=== PATIENT | male | born 1935 | race Caucasian/White ===

== ENCOUNTER 2021-12-04 08:15 | Emergency (ER) | payer MEDICARE, SELFPAY ==
[2021-12-04] VITALS (13 sets, daily range): BP systolic 116–166; BP diastolic 71–93; PULSE 61–78; RESP 15–21; TEMP 36.6–36.9; O2SAT 90–97; BMI 33.5
--- NOTE | 2021-12-04 08:16 | CT_ITS ---
STUDY: CT HEAD STROKE PROTOCOL W/O CONTRAST INJECTION REASON FOR EXAM: Male, 86 years old. Neuro deficit, acute, stroke suspected RADIATION DOSAGE (If Supplied By Facility): CTDIvol = ( 44.99 ) mGy, DLP = ( A 12.98 ) mGycm TECHNIQUE: Transaxial CT imaging of the brain was performed without administration of intravenous contrast material. Individualized dose optimization techniques were used for this CT. COMPARISON: No relevant priors. FINDINGS: Normal soft tissue structures. Normal calvarium. There is mild cerebral atrophy with widening of the extra-axial spaces and ventricular dilatation. There are areas of decreased attenuation within the white matter tracts of the supratentorial brain, consistent with microvascular disease changes. There are small punctate calcifications of the basal ganglia which are seen in the aging brain as a normal variant. Normal brainstem. Tiny lacunae in the left thalamus. There is mild cerebellar atrophy. There is evidence of a 2.9 cm x 2.1 cm intracerebral hematoma in the deep aspect of the left parietal lobe. Minimal surrounding mass effect. Atherosclerotic calcification of the cavernous portions of the internal carotid arteries bilaterally. Normal visualized paranasal sinuses. CT/STROKE Brain/Head without Cont IMPRESSION: 2.9 cm x 2.1 cm intracerebral hematoma in the deep left parietal lobe with minimal surrounding mass effect. Old lacuna in the left thalamus. N.B. : The above Results were Read Back by Arnold Chi MD to Adan Pennington and understanding confirmed on 12/04/2021 08:31:17 (ET). Electronically Signed: Arnold Chi MD at 8:32 EST ,
--- NOTE | 2021-12-04 08:16 | RAD_ITS ---
STUDY: X-RAY CHEST REASON FOR EXAM: Male, 86 years old. Neuro deficit, acute, stroke suspected TECHNIQUE: Single AP portable view of the chest. COMPARISON: None. FINDINGS: EKG electrodes are seen. The lungs are clear and expanded. There is no demonstrated pleural abnormality. Normal size heart. Normal mediastinum and finn. Normal visualized pulmonary arteries. There is atherosclerotic tortuosity of the aortic arch and descending thoracic aorta. There are diffuse degenerative changes of the visualized thoracic spine. Normal visualized ribs, clavicles, and shoulders. There is no demonstrated abnormality of the visualized soft tissue structures of the upper abdomen. RAD/Chest 1 View IMPRESSION: No acute abnormality is seen. Electronically Signed: Arnold Chi MD at 9:03 EST ,
--- NOTE | 2021-12-04 08:16 | EKG12_ITS ---
Test Reason : STROKE Blood Pressure : / mmHG Vent. Rate : 071 BPM Atrial Rate : 071 BPM P-R Int : 146 ms QRS Dur : 090 ms QT Int : 394 ms P-R-T Axes : 053 027 028 degrees QTc Int : 428 ms Normal sinus rhythm Normal ECG Confirmed by SYDNI MTZ MD ([id number]), staff editor DYLAN NAGY ([id number]) on 12/07/2021 12:55:51 PM Referred By: Confirmed By:SYDNI MTZ MD
[2021-12-04 08:34] LABS: Absolute Lymphocyte Count 2.43 X10^3/uL (0.83-4.51); Absolute Neutrophil Count 3.5 X10^3/uL (2.0-7.7); Basophil# 0.04 X10^3/uL; Basophil% 0.6 % (0-1); Eosinophil# 0.22 X10^3/uL; Eosinophils% 3.1 % (0-5); Hematocrit 42.1 % (40-54); Hemoglobin 15.2 g/dL (13.0-16.5); Lymphocyte # 2.43 X10^3/ul (0.83-4.51); Lymphocyte % 34.8 % (19-41); Mean Corp Hgb Conc 36.1 g/dL (32-36); Mean Platelet Vol. 8.6 fl (6.2-12.0); Monocyte# 0.76 X10^3/uL; Monocyte% 10.9 % (0-10); NRBC Flagged by Analyzer 0 % (0-5); Neutrophil # 3.52 X10^3/uL (2.7-7.7); Neutrophil % 50.3 % (47-70); Platelet Count 176 K/mm3 (150-450); RBC Distribution Width CV 11.9 % (11.6-14.6); RBC Distribution Width SD 43.3 fl (35.1-43.9); Red Blood Count 4.34 M/mm3 (4.6-6.2)
[2021-12-04] MEDS: Labetalol (Prefilled) 20 MG/4 ML IV ×2 (08:35→10:05)
--- NOTE | 2021-12-04 08:39 | ED.RN ---
[facility] ETA 60-90 MIN
--- NOTE | 2021-12-04 08:40 | EDS_ITS ---
HPI History of Present Illness Chief Complaint: Neuro S/Sx Informant: patient, spouse/S.O. and EMS Narrative Narrative: 86-year-old male with a history of hypertension presenting to the emergency department with stroke symptoms. EMS tells me that symptoms began at 730 this morning. They note right-sided facial droop slurred speech and right- sided weakness. Patient notes a mild headache. The tells me he takes hydrochlorothiazide. She notes that they went to bed last night at 11 PM. He woke at 730 this morning. She noticed the symptoms and called EMS. She administered aspirin. She states that he is not on any blood thinners. [facility] Medical History High blood pressure Home Medications hydrochlorothiazide 25 mg PO BID 12/04/21 [History Last Taken Unknown] metoprolol tartrate 50 mg PO BID 12/04/21 [History Last Taken Unknown] Allergy/AdvReac Type Severity Reaction Status Date / Time No Known Allergies Allergy Verified 12/04/21 08:38 Social History (Updated 12/04/21 @ 08:[address] Adan Pennington DO) Smoking Status: Never smoker substance use type: does not use ROS ROS ED Constitutional Constitutional ED: Denies chills or weight loss Eyes Eyes: Denies change in vision or diplopia ENT ENT ED: Denies ear pain, rhinorrhea or sore throat Cardiovascular Cardiovascular: Denies chest pain, orthopnea, palpitations or racing heartbeat Respiratory/Chest Respiratory/Chest: Denies cough, dyspnea or orthopnea Gastrointestinal Gastrointestinal: Denies abdominal pain, diarrhea, nausea or vomiting Genitourinary Genitourinary ED: Denies dysuria, hematuria or urinary frequency Musculoskeletal Musculoskeletal: Denies arthralgias or myalgias Integumentary Denies abscess or rash Neurologic Neurologic: Reports headache(s) and weakness Psychiatric Psychiatric: Denies anxiety, depression, suicidal ideation or suicidal thoughts Endocrine Endocrinology: Denies polydipsia, polyphagia or polyuria Allergic/Immunologic Allergic/Immunologic ED: Denies mouth swelling, tongue swelling or urticaria EXAM Physical Exam Const Vital Signs: 12/04/21 08:24 12/04/21 08:25 12/04/21 08:37 Temperature 98.4 F 98.4 F Temperature Source Temporal Temporal Pulse Rate 67 72 Respiratory Rate 18 16 Blood Pressure 158/93 H 158/93 H Blood Pressure Mean 114 114 Pulse Ox 93 90 Oxygen Delivery Method Room Air Room Air Nasal Cannula Oxygen Flow Rate (L/min) 2 12/04/21 08:39 12/04/21 08:48 12/04/21 08:54 Temperature 98.4 F 98.4 F 98.4 F Temperature Source Temporal Temporal Temporal Pulse Rate 66 66 68 Respiratory Rate 15 20 H 18 Blood Pressure 166/79 H 130/75 H 130/75 H Blood Pressure Mean 108 93 93 Pulse Ox 95 97 95 Oxygen Delivery Method Nasal Cannula Nasal Cannula Nasal Cannula Oxygen Flow Rate (L/min) 2 2 2 12/04/21 08:57 12/04/21 09:06 12/04/21 09:15 Temperature 98.4 F 98.4 F 97.9 F Temperature Source Temporal Temporal Temporal Pulse Rate 66 62 64 Respiratory Rate 15 15 17 Blood Pressure 130/75 H 133/71 H 116/79 Blood Pressure Mean 93 91 91 Pulse Ox 97 96 95 Oxygen Delivery Method Nasal Cannula Nasal Cannula Nasal Cannula Oxygen Flow Rate (L/min) 2 2 2 Positive well nourished and well developed General Appearance ED: well developed HEENT Reports normocephalic, head/scalp atraumatic and moist mucous membranes atraumatic Eyes PERRL and EOMs intact bilaterally Neck no lymphadenopathy, supple and no JVD Resp normal respiratory effort and clear to auscultation bilaterally Cardio regular rate, regular rhythm and no murmurs GI normal to inspection, nondistended, normoactive bowel sounds and non-tender Palpation: soft Back/Spine no CVA tenderness and normal ROM Extremity normal to inspection General Extremety ED: Negative for edema General Extremity: Negative for edema Neuro oriented x3 Sensorium / Orientation: alert Psych mental status grossly normal Mood & Affect: Negative for depressed or tearful Skin no rashes or lesions noted and no wounds STROKE Vital Signs/Narrative: Vital Signs Temp Pulse Resp BP Pulse Ox 12/04/21 09:15 97.9 F 64 17 116/79 95 12/04/21 09:06 98.4 F 62 15 133/71 H 96 12/04/21 08:57 98.4 F 66 15 130/75 H 97 12/04/21 08:54 98.4 F 68 18 130/75 H 95 12/04/21 08:48 98.4 F 66 20 H 130/75 H 97 12/04/21 08:39 98.4 F 66 15 166/79 H 95 12/04/21 08:25 98.4 F 72 16 158/93 H 90 12/04/21 08:24 98.4 F 67 18 158/93 H 93 NIHSS Initial: 1a Level of Consciousness: 0 1b LOC Questions (Score 2 if aphasic/stupor): 0 1c LOC Commands (Only score 1st attempt): 0 2 Best Gaze (If aphasic, use reflexive mvmts.): 0 3 Visual: 0 4 Facial Palsy: 2 5 Motor Arm Right (UN = amputation/fusion): 3 5 Motor Arm Left: 0 6 Motor Leg Right: 3 6 Motor Leg Left: 0 7 Limb ataxia (Only + if out of proportion): 0 8 Sensory (Aphasia/stupor=0 or 1, coma=2): 2 9 Best Language: 0 10 Dysarthria (mute, coma=2, intubated=UN): 1 11 Extinction and Inattention (only scored if +): 1 Total Score: 12 MDM MDM MDM Narrative Medical decision making narrative: Patient was taken from EMS cot directly to the CT scanner which revealed a 3 x 2 cm intracerebral hematoma in the deep left parietal lobe. There is minimal surrounding mass-effect. My interpretation of the chest x-ray is no acute process. I spoke with the patient's when she arrived. Due to the current severe winter weather patient will be transported by ground to the nearest [facility] center which is [facility]. Patient has been accepted and we are awaiting transport. He has received medication for his blood pressure. Lab Data Attestation: I reviewed the patient's lab results. Labs: Laboratory Results - last 24 hr 12/04/21 12/04/21 12/04/21 08:25 08:25 08:25 WBC 7.0 RBC 4.34 L Hgb 15.2 Hct 42.1 MCV 97.0 H MCH 35.0 H MCHC 36.1 H RDW Std Deviation 43.3 RDW Coeff of Polo 11.9 Plt Count 176 MPV 8.6 Immature Gran % (Auto) 0.300 Neut % (Auto) 50.3 Lymph % (Auto) 34.8 [place] % (Auto) 10.9 H Eos % (Auto) 3.1 Baso % (Auto) 0.6 Absolute Neuts (auto) 3.5 Absolute Lymphs (auto) 2.43 Nucleated RBC % 0 PT 13.2 INR 1.1 APTT 26.1 Sodium 138 Potassium 3.6 Chloride 103 Carbon Dioxide 30.0 Anion Gap 5 BUN 23 H Creatinine 1.11 Estim Creat Clear Calc 47.93 Est GFR (MDRD) Af Amer 81 Est GFR (MDRD) Non-Af 67 BUN/Creatinine Ratio 20.7 H Glucose 124 H Calcium 9.3 Troponin I High Sens 24 Radiography Diagnostic Testing: Clinical Impression(s) from Imaging Studies Brain CT 12/04/21 08:16 IMPRESSION: 2.9 cm x 2.1 cm intracerebral hematoma in the deep left parietal lobe with minimal surrounding mass effect. Old lacuna in the left thalamus. N.B. : The above Results were Read Back by Arnold Chi MD to Adan Pennington and understanding confirmed on 12/04/2021 08:31:17 (ET). Electronically Signed: Arnold Chi MD at 8:32 EST , ADDENDUM: 12/04/21 0839 IMPRESSION: 2.9 cm x 2.1 cm intracerebral hematoma in the deep left parietal lobe with minimal surrounding mass effect. Old lacuna in the left thalamus. N.B. : The above Results were Read Back by Arnold Chi MD to Adan Pennington and understanding confirmed on 12/04/2021 08:31:17 (ET). Electronically Signed: Arnold Chi MD at 8:32 EST , Chest X-Ray 12/04/21 08:16 IMPRESSION: No acute abnormality is seen. Electronically Signed: Arnold Chi MD at 9:03 EST Reading Location ID and State: [id number] / [employer] , Service support , EKG Initial EKG: Attestation: I personally reviewed and interpreted this EKG as follows: Comments: Normal sinus rhythm with a ventricular rate of 71 bpm Stroke Documentation Questions Stroke Team Activated: Yes Reviewed Inclusion/Exclusion criteria: Yes Was Patient considered for Endovascular Intervention?: No IV Alteplase (t-PA) Administered: No No contraindications for IV Alteplase (t-PA) administration.: No Alteplase (t-PA) risks, benefits, alternative discussed: No Not given: Patient refusal: No Critical Care Time Critical Care Time: Yes Critical care time (excluding procedures): 30-74 minutes (35), Including time spent:, Discussing w/Patient &/or Family/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
[2021-12-04 08:45] LABS: International Normalized Ratio 1.1; Prothrombin Time (Protime)PT. 13.2 SECONDS (11.7-14.9)
[2021-12-04 08:46] LABS: Partial Thromboplast Time 26.1 Seconds (24.1-36.2)
[2021-12-04 08:52] LABS: Anion Gap 5 (5-15); BUN 23 mg/dL (7-18); BUN/Creat Ratio 20.7 RATIO (10-20); Calcium,Total 9.3 mg/dL (8.5-10.1); Chloride 103 mmol/L (98-107); Creatinine, Serum 1.11 mg/dL (0.70-1.30); EST Glomerular Filtration Rate 67 mL/min (>60); Est Glom Filt Rate - Afr Amer 81 mL/min (>60); Estimated Creatinine Clearance 47.93 ml/min; Glucose 124 mg/dL (74-106); Potassium 3.6 mmol/L (3.5-5.1); Sodium Level 138 mmol/L (136-145); Troponin-I HS 24 pg/mL (3.0-78.0)
--- NOTE | 2021-12-04 09:52 | NURSING ---
NO OLD EKGS
[2021-12-10 17:52] VITALS: BMI 31.5
== END 2021-12-04 10:15 | disposition short-term general hospital (02) ==
PROVIDERS: Emergency Provider Emergency Medicine; PCP Family Medicine; Visit Provider Emergency Medicine
DX: I61.1 Nontraumatic intracerebral hemorrhage in hemisphere, cortical (principal); G81.91 Hemiplegia, unspecified affecting right dominant side; R29.712 NIHSS score 12; R29.810 Facial weakness; R47.81 Slurred speech; I10 Essential (primary) hypertension; Z79.899 Other long term (current) drug therapy
CPT/HCPCS: 70450; 71045; 80048; 84484; 85025; 85610; 85730; 93005; 96374; 96376; 99285; A4216

== ENCOUNTER 2021-12-10 17:45 | Inpatient (IN) | payer MEDICARE, SELFPAY ==
[2021-12-10 18:09] VITALS: BP 116/77; PULSE 73; RESP 18; TEMP 36.7; O2SAT 95; BMI 32.3
[2021-12-10 18:52] VITALS: BMI 32.3
[2021-12-10 20:32] VITALS: O2SAT 95
[2021-12-10 21:48] VITALS: BP 128/63; PULSE 76
[2021-12-10] MEDS: Metoprolol Tartrate 25 MG Tablet PO (21:48)
[2021-12-10] MEDS: Ascorbic Acid 500 MG Tablet PO (21:50)
[2021-12-10 22:00] VITALS: BP 128/63; PULSE 76; RESP 22; TEMP 37; O2SAT 90
[2021-12-11] VITALS (7 sets, daily range): BP systolic 133–206; BP diastolic 70–93; PULSE 66–109; RESP 16–20; TEMP 36.6–36.8; O2SAT 90–98; BMI 32.3
[2021-12-11 05:45] LABS: Absolute Neutrophil Count 5.5 X10^3/uL (2.0-7.7); Basophil# 0.03 X10^3/uL; Basophil% 0.3 % (0-1); Eosinophil# 0.31 X10^3/uL; Eosinophils% 3.4 % (0-5); Hematocrit 40.7 % (40-54); Hemoglobin 14.3 g/dL (13.0-16.5); Lymphocyte % 24.4 % (19-41); Mean Corp Hgb Conc 35.1 g/dL (32-36); Mean Corpuscular Volume 99.5 fL (80-94); Mean Platelet Vol. 8.8 fl (6.2-12.0); Monocyte# 0.89 X10^3/uL; Monocyte% 9.9 % (0-10); NRBC Flagged by Analyzer 0 % (0-5); Neutrophil # 5.54 X10^3/uL (2.7-7.7); Neutrophil % 61.7 % (47-70); Platelet Count 136 K/mm3 (150-450); RBC Distribution Width CV 12.3 % (11.6-14.6); RBC Distribution Width SD 44.7 fl (35.1-43.9); Red Blood Count 4.09 M/mm3 (4.6-6.2)
[2021-12-11 06:26] LABS: ALB/GLOB Ratio 0.7 RATIO (0.9-2.4); AST(SGOT) 89 U/L (15-37); Alanine Aminotransfer ALT/SGPT 87 U/L (16-61); Albumin, Serum 2.8 g/dL (3.2-5.0); Alkaline Phosphatase 67 U/L (45-117); Anion Gap 3 (5-15); BUN 25 mg/dL (7-18); BUN/Creat Ratio 25.4 RATIO (10-20); Calcium,Total 8.8 mg/dL (8.5-10.1); Chloride 105 mmol/L (98-107); Creatinine, Serum 0.98 mg/dL (0.70-1.30); EST Glomerular Filtration Rate 77 mL/min (>60); Est Glom Filt Rate - Afr Amer 93 mL/min (>60); Estimated Creatinine Clearance 54.29 ml/min; Globulin 4.2 g/dL (2.2-4.2); Glucose 106 mg/dL (74-106); Phosphorus 2.5 mg/dL (2.5-4.9); Potassium 3.9 mmol/L (3.5-5.1); Sodium Level 138 mmol/L (136-145)
[2021-12-11] MEDS: Triamterene 75MG/Hctz 50MG Tablet 0.5 TABLET PO (09:34)
[2021-12-11] MEDS: Metoprolol Tartrate 25 MG Tablet PO ×2 (09:34→20:52)
[2021-12-11] MEDS: Ascorbic Acid 500 MG Tablet PO ×2 (09:35→20:52)
[2021-12-11] MEDS: Senna/Docusate Sodium 1 Tablet 2 TABLET PO (09:35)
--- NOTE | 2021-12-11 13:21 | EX.PCM.HP.RE ---
[facility] Date of Admission: 12/10/21 HPI Narrative LUCI MYERS, is a 86 YO M with a PMH of hypertension ( takes Metoprolol and HCTZ) and obesity who presented to the ED at [facility] on 12/04/21 with c/o slurred speech, facial droop, R side weakness and a BRIGGS. Stat [place] CTB showed a 2.9 cm X 2.1 cm intracerebral hematoma in the deep aspect of the left parietal lobe/BG/[place] with minimal surrounding mass effect/vasogenic edema. He was transferred to [facility] to be evaluated by neurosurgery. A repeat brain scan was done at [facility] showed the ICH to be 3.5 cm within the left sided basal ganglia with adjacent vasogenic edema. He was seen by neurology and neurosurgery and no surgical intervention was necessary. Follow up scans showed the ICH to be stable. He was evaluated by PT/OT/ST and they felt he could do 3 hours of therapy a day and recommended transfer to acute rehab. He was transferred to [facility] acute rehab on 12/10/21 for 3 hours of therapy to restore function/independence at or near his level prior to the ICH. He had been independent with all ADL's and was driving. He had been on metoprolol 50 mg BID+ HCTZ prior to the stroke but, the metoprolol dose was decreased to 25 mg BID at [facility] due to bradycardia. He was continued on HCTZ. All documentation from [facility] was personally reviewed and the ED notes from [facility]. His mag was low at [facility] and was supplemented. The Tbili was elevated at admission to [facility] and increased to 3.3 on 12/07/21 [facility] Medical History (Updated 12/12/21 @ 00:00 by Rosa Leal) High blood pressure Lacunar infarction Obesity (BMI 30.0-34.9) Home Medications metoprolol tartrate 25 mg PO BID 12/04/21 [History Last Taken Unknown] ascorbic acid (vitamin C) [Vitamin C] 500 mg PO BID 12/10/21 [History Last Taken Unknown] triamterene-hydrochlorothiazid [Maxzide-25mg] 1 tab PO DAILY 12/10/21 [History Last Taken Unknown] Allergy/AdvReac Type Severity Reaction Status Date / Time No Known Allergies Allergy Verified 12/04/21 08:38 Surgical History (Updated 12/11/21 @ 14:[address] Nadiya Castano DO) No history of previous surgery Surgical History no surgical history no surgical history Social History (Updated 12/11/21 @ 14:[address] 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 Smoking Status: Never smoker Electronic Cigarette Use: not used alcohol intake: never substance use type: does not use ROS Constitutional Constitutional: Denies anorexia, change in weight, chills, difficulty sleeping, headache(s) or lethargy Eyes Eyes: Reports blurry vision right; Denies discharge from eye(s), discongugate gaze, double vision, loss of vision or periorbital itching ENT HEENT: Reports disequillibrium and dysphagia; Denies dry mouth, facial pain, nasal congestion, sinus pain, sore throat or vertigo Cardiovascular Cardiovascular: Reports hypertension; Denies chest pain, chest pain at rest, chest pain with activity, dizziness, dyspnea at rest, dyspnea on exertion, flutter in chest or leg edema Respiratory/Chest Respiratory/Chest: Reports change in mental status and other Details: voice is soft and he does not project well. He has been drooling from the corner of the mouth on the R ; Denies chest congestion, chest tightness, hoarseness or tachypnea Gastrointestinal Gastrointestinal: Reports chewing difficulty; Denies abdominal pain, dyspepsia, fecal incontinence, heartburn, nausea or vomiting Genitourinary Genitourinary: Denies burning urination, change in urinary stream, flank pain or urinary incontinence Musculoskeletal Musculoskeletal: Reports abnormal gait, difficulty walking and muscle weakness; Denies back pain, extremity pain or tremors Integumentary Integumentary: Denies photosensitivity, skin ulcer or wounds Neurologic Neurologic: Reports disequilibrium, focal weakness, lack of coordination, memory loss, paresthesias and sensory deficit; Denies convulsions, frequent falls, headache(s), radicular pain, restless legs, seizures, tremor(s) or vertigo Endocrine Endocrinology: Denies change in body appearance, heat intolerance, polydipsia, polyphagia or polyuria Hematologic/Lymphatic Hematologic/Lymphatic: Reports easy bruising Allergic/Immunologic Allergic/Immunologic: Denies GI upset w/certain foods, itchy eyes, rhinitis, throat swelling, eczemia or wheezing Vital Signs Vital Signs Vital Signs: 12/10/21 18:09 12/10/21 20:32 12/10/21 21:48 Temperature 98.1 F Temperature Source Temporal Pulse Rate 73 76 Pulse Rate [Lying] Pulse Rate [Sitting] Pulse Rate [Standing] Respiratory Rate 18 Blood Pressure 116/77 128/63 H Blood Pressure [Lying] Blood Pressure [Sitting] Blood Pressure [Standing] Blood Pressure Mean 90 Blood Pressure Mean [Lying] Blood Pressure Mean [Sitting] Blood Pressure Mean [Standing] Blood Pressure Source Monitor Blood Pressure Position Semi-Fowlers Blood Pressure Location Left Arm Pulse Ox 95 95 Oxygen Delivery Method Room Air Room Air 12/10/21 22:00 12/11/21 06:00 12/11/21 08:42 Temperature 98.6 F Temperature Source Temporal Pulse Rate 76 Pulse Rate [Lying] 79 Pulse Rate [Sitting] 90 Pulse Rate [Standing] 109 H Respiratory Rate 22 H Blood Pressure 128/63 H Blood Pressure [Lying] 178/93 H Blood Pressure [Sitting] 200/86 H Blood Pressure [Standing] 206/86 H Blood Pressure Mean 84 Blood Pressure Mean [Lying] 121 Blood Pressure Mean [Sitting] 124 Blood Pressure Mean [Standing] 126 Blood Pressure Source Monitor Blood Pressure Position Semi-Fowlers Blood Pressure Location Left Arm Pulse Ox 90 90 Oxygen Delivery Method Room Air Room Air 12/11/21 08:43 12/11/21 09:34 12/11/21 10:41 Temperature 98.2 F Temperature Source Oral Pulse Rate 70 109 H 66 Pulse Rate [Lying] Pulse Rate [Sitting] Pulse Rate [Standing] Respiratory Rate 20 H Blood Pressure 154/86 H 133/70 H Blood Pressure [Lying] Blood Pressure [Sitting] Blood Pressure [Standing] Blood Pressure Mean 108 91 Blood Pressure Mean [Lying] Blood Pressure Mean [Sitting] Blood Pressure Mean [Standing] Blood Pressure Source Monitor Blood Pressure Position Semi-Fowlers Blood Pressure Location Left Arm Pulse Ox 91 Oxygen Delivery Method Room Air Weight Weight: 213 lb 13.574 oz Body Mass Index (BMI) 32.3 Indicators for Scoring Admitted with or Primary Diagnosis of CVA/Stroke: Yes Hx of CVA/Stroke: No Modified Ambrosio Score MRS Score at time of Evaluation: 5-Severe disability NIHSS NIHSS 1a. Level of Consciousness: Alert; keenly responsive 1b. LOC Questions: Answers BOTH questions correctly. 1c. LOC Commands: Performs both tasks correctly. 2. Best Gaze: Normal 3. Visual: No visual loss 4. Facial Palsy: Partial paralysis (total or near-total paralysis of lower face) 5a. Left Arm: No drift; arm holds 90 (or 45) degrees for full 10 seconds 5b. Right Arm: No effort against gravity; arm falls 6a. Left Leg: No drift; leg holds 30-degree position for full 5 seconds 6b. Right Leg: Some effort against gravity; 7. Limb Ataxia: Present in 1 limb 8. Sensory: [id number] sensory loss; (decreased sensation on the R face, arm and leg) 9. Best Language: No aphasia; normal 10. Dysarthria: [id number] dysarthria; 11. Extinction and Inattention: Visual, tactile, auditory, spatial, or personal inattention Total: 11 Stroke Questions Stroke Team Activated: No Physical Exam Const alert, oriented x3, no apparent distress and well nourished General Appearance: cooperative and well developed HEENT head/scalp atraumatic and moist oral mucous membranes Eyes PERRL and EOMs intact bilaterally Neck supple General: trachea midline Lymph Lymphatic: no lymphadenopathy noted Resp normal respiratory effort and clear to auscultation bilaterally Effort and Inspection: Negative for tachypneic, respiratory distress or labored Auscultation: Negative for rales, rhonchi or wheezes Cardio regular rate, regular rhythm, S1 normal heart sound, S2 normal heart sound, no murmurs and no gallops Cardio Narrative: resting HR is a little high but not > 100 GI normal to inspection, nondistended, normoactive bowel sounds, soft to palpation and non-tender Palpation: Negative for guarding Extremity no clubbing, cyanosis or edema Skin General Skin Exam: no breakdown Rashes: no rashes Neuro Neuro Narrative: See NIHSS Psych Psych Narrative: 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 He does not want to try a medication to treat this at this time. Results Lab / Micro Data Result Diagrams: 12/11/21 05:39 12/11/21 05:39 Labs: Laboratory Results - last 24 hr 12/11/21 05:39: WBC 9.0, RBC 4.09 L, Hgb 14.3, Hct 40.7, MCV 99.5 H, MCH 35.0 H, MCHC 35.1, RDW Std Deviation 44.7 H, RDW Coeff of Polo 12.3, Plt Count 136 L, MPV 8.8, Immature Gran % (Auto) 0.300, Neut % (Auto) 61.7, Lymph % (Auto) 24.4, [place] % (Auto) 9.9, Eos % (Auto) 3.4, Baso % (Auto) 0.3, Absolute Neuts (auto) 5.5, Absolute Lymphs (auto) 2.20, Nucleated RBC % 0 12/11/21 05:39: Sodium 138, Potassium 3.9, Chloride 105, Carbon Dioxide 30.0, Anion Gap 3 L, BUN 25 H, Creatinine 0.98, Estim Creat Clear Calc 54.29, Est GFR (MDRD) Af Amer 93, Est GFR (MDRD) Non-Af 77, BUN/Creatinine Ratio 25.4 H, Glucose 106, Calcium 8.8, Phosphorus 2.5, Magnesium Cancelled, Total Bilirubin 2.00 H, AST 89 H, ALT 87 H, Alkaline Phosphatase 67, Total Protein 7.0, Albumin 2.8 L, Globulin 4.2, Albumin/Globulin Ratio 0.7 L Assessment & Plan Assessment/Plan (1) Hemorrhagic cerebrovascular accident (CVA): (2) Nontraumatic cerebral edema: (3) COVID-19 virus infection: (4) Lacunar infarction: (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 GI prophylaxis not needed-he has no history of peptic ulcer disease and is asymptomatic at this time. DVT prophylaxis with heparin 5000 units subcu every 12 hours Follow up with PCP and Dr. gutierrez following DC from Rehab AM lab including CMP, CBC, Mag and Phos Continue to monitor for depression Follow-up appointments 1. Dr. Gutierrze (neurosurgery) call for an appt - in 4 weeks 2. Needs a head CT in 2 weeks Charges/Coding Visit Charges Inpatient E&M: 70453 Init Hosp L3
--- NOTE | 2021-12-11 14:05 | PCM.RU.PYE ---
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 Status Changes from Prescreening?: No changes Identified Actual Problem List:: Cognitve Impr/Memory Loss, Mobility Impaired, Self Care Deficit, BP, Hypertension and Alteration-Leisure Activ. Potential Problem List:: DVT, Bleeding, Infection, UTI, Aspiration, Falls, Skin Integrity and Depression Risk of Complications DVT: LMWH (Heparin 5,000 units Q 12H.) and CORY Hose Bleeding: Monitor Lab Values, Nursing to Teach Precautions for anti-coagulation therapy., Wound, if applicable, to be assessed every shift. and Stroke patients assessed for lethargy or change in status. Infection: Clinical Staff to Monitor for S/S of infection: and S/S of infection include fever, redness, warmth, etc. Urinary Tract Infection: Monitor for frequency, burning, discomfort, or incontinence. and Nursing will obtain urine sample for urinalysis and C&S when ordered. Aspiration: Clinical staff will monitor for coughing, drooling, congestion., Speech will evaluate swallowing and dsyphasia. and Nursing will monitor patient swallowing during meals. Falls: Patient will be evaluated for Fall Precautions and Patient will be placed on Fall Precautions as indicated per protocol. Skin Breakdown: Nursing will assess skin daily using assessment tool. and Nursing will place on Skin Breakdown Precautions as indicated. Pain: Clinical staff will assess patient's pain level per protocol., Medications will be given, if needed, and the pain level reassessed. and Other methods: Massage, distraction, decrease stimulus, etc. used PRN. Plan of Care Patient requires physician specializing in physical medicine and rehab oversight to provide close medical supervision of rehab issues including: Pain Management, Sleep Problems, Bowel and Bladder, Medical and co-morbidity Management, DVT prophylaxis, Rehabilitation Leadership and Coordination of treatment team Patient needs Physical Therapy: For a minimum of 1 hour and At least 5 out of 7 days Patient needs Physical Therapy to improve:: Mobility, Strengthening, Transfers, Stretching, ROM, Endurance, Stairs, Gait and Balance Patient needs Occupational Therapy: For a minimum of 1 hour and At least 5 out of 7 days Patient needs Occupational Therapy to improve ADL's incl.: Eating, Grooming, Bathing, Dressing, Toileting, Toilet transfers, Community Reintegration, Higher functioning activities, Household tasks, Adaptive Equipment, Splinting and Other activities as determined Patient requires speech therapy: For a minimum of 1 hour and At least 5 out of 7 days Patient requires speech therapy for: Swallowing, Cognition, Language Skills and Compensatory Strategies Patient requires 24/ Rehabilitation Nursing for: Pain Issues, Identifying and preventing risk factors, Monitoring and reporting current medical conditions, Assisting with ambulation, transfer, and all ADL's, Teaching patients about disease process and medications, Family teaching, Providing safe environment, Bowel and Bladder Issues, Skin integrity and Medication Management Patient needs Rate And Cost Analyst/ Case Management for: Discharge Planning, Arranging Home Equipment or Services and Family Interventions Patient needs Dietary and Nutrition Services for: Adequate Nutrition, Nutritional Supplements and Nutritional Education Goals Patient will remain: free from falls and or injury at time of discharge. Patient will perform bed mobility at: MOD I level of assist. Patient will complete transfers from bed to chair at: MOD I level of assist. Patient will ambulate: 100 feet and with LRD (At contact-guard assist on various surfaces) Patient will complete upper body dressing at: - (Minimal assistance x1) Patient will complete lower body dressing at: - (Minimal assistance x1) Patient will complete toileting at: - (Min assist x1) Patient will perform bathing at: - (Minimal assistance x1) Patient will complete grooming at: MOD I level of assist. Patient will complete home management skills at: MOD I level of assist. Patient will achieve: 12 stairs (With 1 handrail....descending backwards ) and - (1 curb step) Patient will have pain level of: of 3 or less Patient's skin will: remain intact Patient will receive: adequate nutrition. Discharge Planning Estimated Length of stay (days): 28 Anticipated D/C Destination: TBD Was Preadmission Assessment Accurate?: Yes
--- NOTE | 2021-12-11 14:31 | CASEMGMT ---
Social Work Met with patient for initial assessment. Confirmed full code, code status. Explained [employer] insurance. Continued stay is not guaranteed with each review. The goal is for pt to return home with . Pt is tearful/emotional, which is new since the stroke. The is aware. Completed PHQ-9. Scored 04/26. Will continue to follow for support and discharge planning. Team meeting 12/14. MICHAEL TorrezW
[2021-12-11] MEDS: Menthol/Lanolin/Calamine/Znox 113 GM Tube 1 APPLIC TOPICAL ×2 (16:19→22:57)
[2021-12-11] MEDS: Heparin Injection (Vial) 5,000 UNIT/ML VIAL 5000 UNIT SC (21:07)
[2021-12-12 01:10] VITALS: BMI 32.3
[2021-12-12 07:54] VITALS: PULSE 70
[2021-12-12] MEDS: Ascorbic Acid 500 MG Tablet PO ×2 (07:54→22:31)
[2021-12-12] MEDS: Triamterene 75MG/Hctz 50MG Tablet 0.5 TABLET PO (07:54)
[2021-12-12] MEDS: Metoprolol Tartrate 25 MG Tablet PO ×2 (07:54→22:31)
[2021-12-12] MEDS: Menthol/Lanolin/Calamine/Znox 113 GM Tube 1 APPLIC TOPICAL ×2 (07:55→22:34)
[2021-12-12 08:00] VITALS: BP 123/72; PULSE 70; RESP 20; TEMP 36.7; O2SAT 93
[2021-12-12 08:30] VITALS: BP 132/69; BP 139/75; PULSE 72; PULSE 80; PULSE 94
[2021-12-12 08:36] LABS: Hemoglobin A1c 5.4 % (3.8-5.6)
[2021-12-12] MEDS: Heparin Injection (Vial) 5,000 UNIT/ML VIAL 5000 UNIT SC ×2 (10:12→22:31)
[2021-12-12 13:38] VITALS: O2SAT 93
[2021-12-12 16:03] VITALS: BMI 32.3
[2021-12-12 19:26] VITALS: BP 138/86; PULSE 69; RESP 16; TEMP 36.2; O2SAT 97
[2021-12-12 22:31] VITALS: PULSE 73
[2021-12-12 22:35] VITALS: BMI 32.3
[2021-12-13 08:16] VITALS: PULSE 66
[2021-12-13] MEDS: Senna/Docusate Sodium 1 Tablet 2 TABLET PO ×2 (08:16→21:22)
[2021-12-13] MEDS: Triamterene 75MG/Hctz 50MG Tablet 0.5 TABLET PO (08:16)
[2021-12-13] MEDS: Metoprolol Tartrate 25 MG Tablet PO ×2 (08:16→21:20)
[2021-12-13] MEDS: Ascorbic Acid 500 MG Tablet PO ×2 (08:17→21:16)
[2021-12-13] MEDS: Menthol/Lanolin/Calamine/Znox 113 GM Tube 1 APPLIC TOPICAL ×2 (08:19→21:15)
[2021-12-13 09:10] VITALS: BP 149/83; PULSE 65; RESP 18; TEMP 36.2; O2SAT 94
[2021-12-13] MEDS: Heparin Injection (Vial) 5,000 UNIT/ML VIAL 5000 UNIT SC ×2 (10:05→21:23)
--- NOTE | 2021-12-13 12:23 | PCM.PN.BLA ---
Progress Note Afebrile VSS - BP's are mildly above goal - 123-149/69-89. Goal is less than 135/80. Heart rate is within normal limits. Maintaining appropriate oxygen saturation on RA Oral intake is on the low side Post void residuals have been zero and 136 No urinary incontinence Discussed with nursing - no problems that need addressed Reviewed the PT/OT/ST notes Medication list reviewed. Jaiden denies lightheadedness, dizziness, vertigo, shortness of breath, chest pain, calf pain, nausea/vomiting/abdominal pain, dysuria, urinary incontinence, cephalgia. We discussed the emotional lability again and he wants to wait on treatment. Physical Exam Const alert, oriented x3 and no apparent distress HEENT moist oral mucous membranes Eyes PERRL, EOMs intact bilaterally and no scleral icterus Resp normal respiratory effort and clear to auscultation bilaterally Effort and Inspection: able to speak in complete sentences Cardio regular rate, regular rhythm and no gallops GI normal to inspection, nondistended, normoactive bowel sounds, soft to palpation and non-tender Extremity no calf tenderness and no pedal edema Skin General Skin Exam: no breakdown Rashes: no rashes Neuro Neuro Narrative: RUE still no effort against gravity......can not shrug the shoulder wither. He has some effort against gravity with the R Leg but, it falls to the bed within 2 sec. Still with paralysis of the lower face with some drooling. Dysarthria is a little better Psych Psych Narrative: We were talking about his prognosis and he broke into tears because he does not want his to have to take care of me. He became tearful 1 other time. Appearance: appropriate Activity / Motor Behavior: appropriate eye contact; Negative for psychomotor agitation, psychomotor slowing, disorganized or restless Speech: slurred Mood & Affect: depressed and other pseudobulbar affect Assessment & Plan Assessment/Plan (1) Hemorrhagic cerebrovascular accident (CVA): (2) Cognitive dysfunction: (3) Dysphagia: (4) Pseudobulbar affect: PLAN: 1. Continue therapy 2. Continue to monitor for depression closely and readdress treatment. Will bring this up in TEAM tomorrow when his family will be there to support him. 3. Recheck a CBC and a CMP sometime this week and if he still has abnormal LFT's will do a direct and indirect bilirubin......biliary obstruction? Hemolysis? 4. I suspect he will need to go to SNF at DC and not home. Visit Charges Inpatient E&M: 59619 Subs Hosp L2
[2021-12-13] MEDS: amLODIPine 2.5 MG Tablet PO (14:42)
[2021-12-13 15:09] VITALS: BMI 32.3
[2021-12-13 19:48] VITALS: BP 134/91; PULSE 67; RESP 18; TEMP 36.7; O2SAT 95
[2021-12-13 21:20] VITALS: PULSE 67
[2021-12-14 00:54] VITALS: BMI 32.3
--- NOTE | 2021-12-14 04:30 | NURSING ---
Reviewed and agree with COUNCILOR documentation and assessment charting.
[2021-12-14 09:00] VITALS: BP 140/79; PULSE 69; RESP 16; TEMP 36.7; O2SAT 95
[2021-12-14 09:02] VITALS: BP 140/79; PULSE 69
[2021-12-14] MEDS: Heparin Injection (Vial) 5,000 UNIT/ML VIAL 5000 UNIT SC ×2 (09:02→22:23)
[2021-12-14] MEDS: Metoprolol Tartrate 25 MG Tablet PO ×2 (09:02→22:24)
[2021-12-14] MEDS: Senna/Docusate Sodium 1 Tablet 2 TABLET PO ×2 (09:03→22:26)
[2021-12-14] MEDS: amLODIPine 2.5 MG Tablet PO (09:03)
[2021-12-14] MEDS: Ascorbic Acid 500 MG Tablet PO ×2 (09:03→22:24)
[2021-12-14] MEDS: Menthol/Lanolin/Calamine/Znox 113 GM Tube 1 APPLIC TOPICAL ×2 (09:04→22:23)
--- NOTE | 2021-12-14 09:25 | SP.MBSS_ITS ---
Modified Barium Swallow - Patient Information Study Date: 12/14/21 Study Time: 09:25 Direct Billable Minutes: 120 Total Minutes procedure & reportin Diagnosis: dysphagia s/p CVA Referring Physician: Nadiya Castano Reason for Referral: Jaiden was referred for a Modified Barium Swallow Study to objectively assess swallow function following a Clinical Bedside Swallow Evaluation. MBS necessary to improve specificity of dysphagia interventions selected and further elucidate necessary diet texture, liquid consistency and compensatory strategy recommendations. Medical History: Jaiden Rodríguez is an 86-year-old male with a past medical history of hypertension and obesity who presented to [facility] ED on 12/04/21 with stroke symptoms. 2.9 cm X 2.1 cm intracerebral hematoma in the deep aspect of the left parietal lobe/BG/[place] with minimal surrounding mass effect/vasogenic edema. He was transferred to [facility] to be evaluated by neurosurgery. A repeat brain scan was done at [facility] showed the ICH to be 3.5 cm within the left sided basal ganglia with adjacent vasogenic edema. He was seen by neurology and neurosurgery and no surgical intervention was necessary. Follow up scans showed the ICH to be stable. The patient was admitted to [facility] Inpatient Rehab Unit on 12/10/21 to receive 3 hours of PT/OT/ST to restore function s/p CVA w/ the goal of returning home at the highest possible level of independent functioning. Jaiden was driving and independent w/ his ADLs prior to this hospitalization. Current Diet Ordered: Soft & Bite Size (IDDSI: 6) Thin Liquid (IDDSI: 0) Dentition: Natural Teeth, Missing Teeth - no molars, limited dentition Mental Status: WNL - [place] - sufficient comprehension for participation in MBS Respiratory Status: Oxygenating on Room Air - Penetration-Aspiration Scale Penetration-Aspiration Scale: OBJECTIVE ASSESSMENT OF SWALLOW FUNCTION (QUANTITATIVE ? PER TRIAL): PENETRATION / ASPIRATION SCALE (ODONNELL): 1 = does not enter airway 2 = enters airway/above vocal folds/ejected 3 = enters airway/above vocal folds/not ejected 4 = enters airway/contacts vocal folds/ejected 5 = enters airway/contacts vocal folds/not ejected 6 = enters airway/below vocal folds/ejected 7 = enters airway/below vocal folds/not ejected despite effort 8 = enters airway/below vocal folds/no effort - Penetration-Aspiration Scale Score Thin Liquid via teaspoon Result: 1= does not enter airway Thin Liquid via teaspoon Trial 2 Result: 5= enters airways/contacts vocal folds/not ejected Comment: No overt response to contrast contacting the vocal folds. Cued cough and reswallow WAS EFFECTIVE to expel contrast from the laryngeal vestibule. Thin Liquid via small single sip from cup Result: 1= does not enter airway Thin Liquid via sequential sips from cup Result: 2= enter airway/above vocal folds/ejected - Transient undercoating of the epiglottis 1 out of 3 swallows w/ complete clearance Thin Liquid via single sip from straw Result: 1= does not enter airway Thin Liquid via single sip from straw Trial 2 Result: 1= does not enter airway Pudding via teaspoon Result: 1= does not enter airway Cookie Result: 1= does not enter airway Thin Liquid via small single sip from cup Trial 2 Result: 1= does not enter airway Thin Liquid via single sip from straw Trial 3 Result: 1= does not enter airway Pudding AP View Result: 1= does not enter airway Thin Liquid via single sip from straw AP View Result: 1= does not enter airway - Oral Phase Labial Seal: Escape progressing to mid-chin Tongue Control During Bolus Hold: Cohesive bolus between tongue to palatal seal Bolus Preparation/Mastication: Slow prolonged chewing/mashing with complete recollection Bolus Transport/Lingual Motion: Repetitive/disorganized tongue motion Oral Residue: Residue collection on oral structures - Pharyngeal Phase Initiation of Pharyngeal Swallow: Bolus head in valleculae Soft Palate Elevation: No bolus between soft palate and pharyngeal wall Laryngeal Elevation: Partial superior movement thyroid cart/partial apprx aryt- epig petiole Anterior Hyoid Excursion: Partial anterior movement Epiglottic Movement: Partial inversion Laryngeal Vestibule Closure at Height of Swallow: Complete; no air/contrast in laryngeal vestibule Pharyngeal Stripping Wave: Present - complete Pharyngoesophageal Segment Opening: Parital distension and partial duration; parital obstruction of flow Tongue Base Retraction: Narrow column of contrast between tongue base & post. pharyngeal wall Pharyngeal Residue: Trace residue within or on pharyngeal structures - Esophageal Phase Esophageal Clearance: Complete clearance - Diagnosis/Impression Diagnosis: oropharyngeal dysphagia (R13.12) Impression: This patient's swallow function is characterized by: * mastication inefficiency w/ prolonged oral preparation of solids d/t molar absence * suboptimal lingual control w/ lack of bolus cohesion and repetitive lingual movement for oral to pharyngeal bolus transportation * mild residue retention d/t intraoral weakness w/ contrast lining the buccal cavity - R>L * reduced tongue base retraction, although pharyngeal contraction sufficiently compensated to achieve pharyngeal bolus clearance * reduced laryngeal elevation and anterior hyoid excursion contributing to insufficient epiglottic inversion and reduced pharyngoesophageal segment distention * poor coordination of respiration and deglutition w/ inability to maintain airway closure for sequential swallows likely d/t prolonged oral bolus transportation time, transient laryngeal vestibule penetration w/ 1 of 3 sequential swallows w/ complete ejection for sufficient airway protection * penetration to the vocal folds occurred 1x w/ thin via tsp at start of study, able to eject w/ cued throat clear and re-swallow * belching noted 1x during MBS, esophageal sweep was not completed, cannot rule out esophageal dysfunction as a contributing factor in current dysphagia - no retention below PES evident across all trials * 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 - visible contrast retention noted following pudding trial which remained visible t/o remainder of lateral and A- P trials - no impact on swallow function appreciated lateral view AP view Diet Recommended: * Soft & Bite Sized Texture (IDDSI: 6) * Thin Liquid (IDDSI: 0) Compensatory Strategies Recommended: * small bites * small sips * slow rate of intake * clear the oral cavity before taking next bite * cough/clear throat and re-swallow if wet/gurgly voice noted w/ intake * bolus placement to L * monitor R labial commissure for anterior bolus/saliva loss and cue to wipe as needed * sit upright w/ hip flexion at 90 degrees during PO intake * remain seated upright for 30 minutes after PO intake (GERD precautions) Additional Speech Therapy Services Recommended: * Patient requires intensive skilled speech-language intervention for treatment of dysphagia - oropharyngeal strengthening (lingual and labial strengthening/ROM, tongue base retraction, hyolaryngeal excursion, epiglottic inversion, respiratory muscle strength training Education Provided: * Results and recommendations were discussed with the Patient immediately following MBS completion, with the Patient verbalizing understanding and agreement with all recommendations and education provided. - Status Active ST Patient: Active - Contact Information [facility] Speech Therapy:: Maxine Hahn M.A., CCC-INSPECTING ENGINEER [facility] [address] [place] [address] [phone] [email or web address]
--- NOTE | 2021-12-14 14:05 | CASEMGMT ---
Social Work IDT met with patient, and dtr for Team meeting. Discussed patient's progress in PT/OT/ST and nursing. Pt making progress. Explained [facility] insurance with NRD 12/18 and continued stay is not guaranteed. Discussed alternative DC plans if pt cannot return home at the time of insurance cut. Dtr and agree cannot care for pt at heavy assist and would need SNF. Explained SNF options and financial liability. [facility] is only in network with [facility], [facility] and [facility] in the area. Family questioned one time contract at another SNF. Explained that is a possibility, but it truly would be a one time contract. Thus, if pt changes condition and would meet skilled criteria, facility would be unable to submit for auth. However, explained that would be the case with TCU. Once insurance is done paying in TCU, pt would need to DC or private pay. The other SNFs offer nonskilled care but all private pay. Explained that insurance may not approve a SNF stay regardless since they already approved IRU. Family expressed understanding. Their first choice is TCU if insurance would approve. Also addressed frequent tearfulness and Dr. Castano educated to medication. SW to provide ongoing mood assessment and support. Will ReTeam next week. SW to continue to follow. Louise Finney, METAL REFINER EDITOR NEWSPAPER
[2021-12-14 17:00] VITALS: BMI 32.3
--- NOTE | 2021-12-14 18:43 | PCM.PN.BLA ---
Progress Note Jaiden was seen on team rounds today. His Aide and his daughter were present in the room. Afebrile VSS Maintaining appropriate oxygen saturation on RA Oral intake is [] Discussed with nursing - no problems that need addressed Reviewed the PT/OT/ST notes Medication list reviewed. Still having a lot of emotional lability and crying. He cried a few times during the TEAM meeting. We discussed Nudexta. His dtr would like to discuss this with her siblings prior to trying this medication. It is not on the hospial formulary so I would have to write a prescription and have them obtain it......I will check with the retail pharmacy. Physical Exam Const alert and oriented x3 Constitutional Narrative: breaks out into tears suddenly on and off throughout the day. General Appearance: cooperative HEENT moist oral mucous membranes Eyes PERRL, EOMs intact bilaterally, conjunctivae normal, no scleral icterus and normal visual lopez by confrontation Neck supple Resp clear to auscultation bilaterally Cardio regular rate, regular rhythm and no gallops GI normal to inspection, nondistended, normoactive bowel sounds, soft to palpation and non-tender Extremity no calf tenderness and no pedal edema Skin General Skin Exam: no breakdown Rashes: no rashes Neuro Neuro Narrative: He has some motion in the elbow and the shoulder on the R now. He walked at the wall rail with max assist of one with the foot ZION wrapped into dorsiflexion and the therapist moving the R leg forward. Psych thought process normal, denies hallucinations, denies homicidal ideation and denies suicidal ideation Psych Narrative: He has some cognitive dysfunction due to the stroke Appearance: grossly normal Attitude: calm, engaged, No agitated and No aggressive Activity / Motor Behavior: appropriate eye contact Speech: slurred Mood & Affect: labile affect Attention / Concentration: attention grossly intact Assessment & Plan Assessment/Plan (1) Pseudobulbar affect: PLAN: We discussed starting Nudexta for PBA on rounds today. His family would like to talk about this first. The nurse gave them information on the drug, including side effects. His dtr is going to research pseudobulbar affect. (2) Dysphagia: PLAN: continue ST (3) Cognitive dysfunction: PLAN: Continue ST (4) Hemorrhagic cerebrovascular accident (CVA): PLAN: possibly due to uncontrolled HTN? (5) High blood pressure: PLAN: BP is not at goal but, it is only mildly elevated. He was started on Amlodipine 2.5 mg daily and so far is tolerating. I would like to see the systolic < 130 and the diastolic < 80 at DC from rehab. Will continue to monitor. (6) Hyperbilirubinemia: PLAN: with mild increase in the transaminases.....etiology? Will recheck this week. Visit Charges Inpatient E&M: 29100 Subs Hosp L2
[2021-12-14 22:00] VITALS: BP 134/84; PULSE 80; RESP 18; TEMP 36.6; O2SAT 94; BMI 32.3
[2021-12-14 22:24] VITALS: BP 134/84; PULSE 80
--- NOTE | 2021-12-15 03:21 | NURSING ---
Reviewed and agree with ASSISTANT EDUCATION DIRECTOR assessment and note.
[2021-12-15] MEDS: Magnesium Hydroxide 30 ML UDC PO (05:14)
[2021-12-15 10:00] VITALS: BP 139/89; PULSE 78; RESP 18; TEMP 36.4; O2SAT 97
[2021-12-15] MEDS: Heparin Injection (Vial) 5,000 UNIT/ML VIAL 5000 UNIT SC ×2 (10:03→22:22)
[2021-12-15] MEDS: amLODIPine 2.5 MG Tablet PO (10:08)
[2021-12-15] MEDS: Menthol/Lanolin/Calamine/Znox 113 GM Tube 1 APPLIC TOPICAL ×2 (10:08→22:20)
[2021-12-15] MEDS: Ascorbic Acid 500 MG Tablet PO ×2 (10:08→22:23)
[2021-12-15] MEDS: Senna/Docusate Sodium 1 Tablet 2 TABLET PO ×2 (10:08→22:23)
[2021-12-15 10:09] VITALS: BP 139/89; PULSE 90
[2021-12-15] MEDS: Metoprolol Tartrate 25 MG Tablet PO ×2 (10:09→22:22)
[2021-12-15 17:00] VITALS: BMI 32.3
[2021-12-15 18:59] VITALS: BP 147/88; PULSE 76; RESP 18; TEMP 36.6; O2SAT 97
[2021-12-15 21:15] VITALS: PULSE 76; RESP 18; BMI 32.3
[2021-12-15 22:22] VITALS: BP 147/88; PULSE 76
--- NOTE | 2021-12-16 03:13 | NURSING ---
REVIEWED AND AGREE WITH FEATHER SAWYER'S HANDOFF CHARTING AND FUNCTIONAL ASSESSMENT.
[2021-12-16 05:47] LABS: Mean Corp Hgb Conc 34.9 g/dL (32-36); Mean Corpuscular Hgb 34.7 pg (27.0-32.0); Mean Corpuscular Volume 99.5 fL (80-94); Mean Platelet Vol. 8.3 fl (6.2-12.0); Platelet Count 164 K/mm3 (150-450); RBC Distribution Width CV 12.2 % (11.6-14.6); RBC Distribution Width SD 44.8 fl (35.1-43.9); Red Blood Count 4.32 M/mm3 (4.6-6.2); White Blood Count 7.2 K/mm3 (4.4-11.0)
[2021-12-16 06:10] LABS: ALB/GLOB Ratio 0.7 RATIO (0.9-2.4); AST(SGOT) 52 U/L (15-37); Alanine Aminotransfer ALT/SGPT 82 U/L (16-61); Albumin, Serum 3.2 g/dL (3.2-5.0); Alkaline Phosphatase 72 U/L (45-117); Anion Gap 4 (5-15); BUN 39 mg/dL (7-18); BUN/Creat Ratio 32.8 RATIO (10-20); Calcium,Total 9.7 mg/dL (8.5-10.1); Chloride 105 mmol/L (98-107); Creatinine, Serum 1.19 mg/dL (0.70-1.30); EST Glomerular Filtration Rate 62 mL/min (>60); Est Glom Filt Rate - Afr Amer 75 mL/min (>60); Estimated Creatinine Clearance 44.71 ml/min; Globulin 4.6 g/dL (2.2-4.2); Glucose 110 mg/dL (74-106); Potassium 4.2 mmol/L (3.5-5.1); Protein, Total 7.8 g/dL (6.4-8.2); Sodium Level 137 mmol/L (136-145)
[2021-12-16 07:49] VITALS: BP 154/73; PULSE 64; RESP 14; TEMP 36.3; O2SAT 96
[2021-12-16] MEDS: Heparin Injection (Vial) 5,000 UNIT/ML VIAL 5000 UNIT SC ×2 (10:01→22:33)
[2021-12-16 10:02] VITALS: PULSE 64
[2021-12-16] MEDS: Ascorbic Acid 500 MG Tablet PO ×2 (10:02→22:33)
[2021-12-16] MEDS: Metoprolol Tartrate 25 MG Tablet PO ×2 (10:02→22:33)
[2021-12-16] MEDS: amLODIPine 2.5 MG Tablet PO (10:02)
[2021-12-16] MEDS: Senna/Docusate Sodium 1 Tablet 2 TABLET PO ×2 (10:02→22:33)
[2021-12-16] MEDS: Menthol/Lanolin/Calamine/Znox 113 GM Tube 1 APPLIC TOPICAL ×2 (10:03→22:34)
--- NOTE | 2021-12-16 11:39 | PCM.PN.BLA ---
Progress Note Afebrile VSS - BP's are over goal. The diastolic ranged from 88-89 yesterday and the systolic from 139-147. HR is within normal limits. Maintaining appropriate oxygen saturation on RA Oral intake is poor Discussed with nursing - no problems that need addressed Reviewed the PT/OT/ST notes Medication list reviewed. All lab was personally reviewed. White blood cell count is 7.2 and the hemoglobin is 15. Platelets are within normal limits now. Sodium is 137 and potassium is 4.2. The BUN is elevated at 39 and the creatinine is 1.19, up from 0.98 on 12/11/2021. The BUN/creatinine ratio is 32.8 today. Total bilirubin is still elevated and is 1.7 today. Transaminases are mildly elevated at 52 and 82 and the alk phos is normal. Physical Exam Const alert and oriented x3 Constitutional Narrative: little facial expression, looks sad. He did not cry when I talked with him today. He is having difficulty making decisions. He ate very little of his lunch. He has been doing therapy but, he is losing hope because he can not see rapid progress with walking. The PT made a comment about him worrying about the insurance and getting cut and not being good enough to go home at DC and having to go to SNF. Still requiring max assist of 2 to stand and pivot. He is consistently able to stand at the wall rail with only mod assist when he is pulling on the wall rail with his left upper extremity. He did ambulate 10 feet X2 and 20' X 1 with max assist at the wall rail. He is now able to advance the RLE 35% of the time without assist. Still with R side neglect. General Appearance: cooperative Eyes PERRL, conjunctivae normal and no scleral icterus Resp clear to auscultation bilaterally Cardio regular rate and regular rhythm GI normal to inspection, nondistended, normoactive bowel sounds, soft to palpation and non-tender GI Narrative: He complains that he has no appetite Extremity no calf tenderness and no pedal edema Skin General Skin Exam: no breakdown Rashes: no rashes Psych cooperative Appearance: grossly normal and appropriate Activity / Motor Behavior: appropriate eye contact Speech: slurred Mood & Affect: depressed and sad Thought Process: No incoherent, No confabulating and No loose associations Attention / Concentration: attention grossly intact Insight: poor Judgement: poor Assessment & Plan Assessment/Plan (1) Hyperbilirubinemia: (2) Acute depression: (3) High blood pressure: (4) Dysphagia: (5) Cognitive dysfunction: (6) Hemorrhagic cerebrovascular accident (CVA): (7) Dehydration: PLAN: 1. I talked with Jaiden's Aide on the phone. She has noticed that Jaiden is not eating and he seems to be losing hope. She herself has been depressed and she recognizes it in him. We talked about starting an antidepressant and she is agreeable to starting Remeron. I am hopeful that this will help stimulate appetite. 2. Start an IV of D50.45% NS 3. Fractionate the bilirubin. AP is normal and the transaminases are only very mildly elevated. Not consistent with a obstructive picture.....he has no RUQ pain and he denies nausea. 4. Increase the Amlodipine to 5 mg if the BP is still high this coming weekend. It was started on the . 5. Continue therapy. 6. Recheck a BMP on Tuesday Visit Charges Inpatient E&M: 10178 Subs Hosp L2
[2021-12-16 14:26] VITALS: BMI 32.3
[2021-12-16] MEDS: Dext 5%-0.45% NS 1,000 ML 100 ML IV (16:05)
[2021-12-16 16:25] LABS: Bilirubin, Direct 0.34 mg/dL (0.00-0.30)
[2021-12-16 19:20] VITALS: BP 127/83; PULSE 67; RESP 15; TEMP 35.8; O2SAT 93
[2021-12-16] MEDS: Mirtazapine 15 MG Tablet 7.5 MG PO (19:58)
[2021-12-16] MEDS: Cholecalciferol (VIT D3) 25 MCG TABLET (1,000 UNITS) 250 MCG PO (22:32)
[2021-12-16 22:33] VITALS: PULSE 67
[2021-12-17 01:13] VITALS: BMI 32.3
[2021-12-17] MEDS: Dext 5%-0.45% NS 1,000 ML 100 ML IV ×2 (01:51→14:28)
--- NOTE | 2021-12-17 02:54 | NURSING ---
REVIEWED AND AGREE WITH DEBURRING MACHINE OPERATOR'S FUNCTIONAL ASSESSMENT AND HANDOFF CHARTING.
[2021-12-17 08:07] VITALS: BP 149/83; PULSE 64; RESP 18; TEMP 36.7; O2SAT 98
[2021-12-17] MEDS: Heparin Injection (Vial) 5,000 UNIT/ML VIAL 5000 UNIT SC ×2 (09:25→21:27)
[2021-12-17 09:26] VITALS: PULSE 64
[2021-12-17] MEDS: Metoprolol Tartrate 25 MG Tablet PO ×2 (09:26→21:28)
[2021-12-17] MEDS: amLODIPine 2.5 MG Tablet PO (09:26)
[2021-12-17] MEDS: Ascorbic Acid 500 MG Tablet PO ×2 (09:26→21:28)
[2021-12-17] MEDS: Senna/Docusate Sodium 1 Tablet 2 TABLET PO ×2 (09:27→21:28)
[2021-12-17] MEDS: Menthol/Lanolin/Calamine/Znox 113 GM Tube 1 APPLIC TOPICAL ×2 (09:32→21:27)
--- NOTE | 2021-12-17 10:27 | PCM.PROGNOTE ---
Subjective Subjective Afebrile VSS - most of the BP's are still mildly increased. Maintaining appropriate oxygen saturation on RA Oral intake is getting better. It was 1280 yesterday with nursing and therapy offering water. Discussed with nursing - no problems that need addressed Reviewed the PT/OT/ST notes Medication list reviewed. The TBILI is coming down gradually. The direct bili is 0.34 with the highest normal 0.3. The indirect is elevated at 1.36. AP has always been normal. I suspect he has Gilbert's or hemolysis........HGB is 15.2. The MCV is elevated at 99.5. He could be hemolyzing the blood from the hemorrhagic CVA? I suspect that if he had Gilbert's the bili would be down to normal by now. Will request lab from Dr. Tijerina......any bilirubin and hepatitis panels or liver imaging over the past 5 years. Jaiden is upset because he feels tired today and he attributes this to the Remeron. He slept very well last night.......something he has not been doing since the stroke. He also ate a good breakfast today. I explained he is on the lowest dose available and we are using Remeron not only for the antidepressant effect but, for the appetite stimulation and and to help with sleep. He feels like he will not be better by his DC date and is feeling hopeless. He is trying very hard and is upset that he is not getting better faster. I explained once again that it takes time to retrain a damaged brain. I explained I need him to eat well and drink at least 2 big mugs of fluid a day. He also did not want the IV but I explained he is dehydrated, lightheaded and his creat is up so he needs fluids. I gave him goals......at least 48 oz of fluid daily, at least 9 hours of sleep a night and adequate protein and calorie intake. He denies CP, SOB, palpitations, dysuria, N/V/abd pain. His only complaints today are he feels tired, lightheaded and he has no appetite. Objective Data Objective Data Vital Signs: Vital Signs Temp Pulse Resp BP Pulse Ox 98.1 F 64 18 149/83 H 98 12/17/21 08:07 12/17/21 09:26 12/17/21 08:07 12/17/21 08:07 12/17/21 08:07 Oxygen Delivery Method Room Air Weight: 201 lb 8.04 oz Body Mass Index (BMI) 32.3 Intake & Output: Intake and Output for Last 24 Hours 12/15/21 12/16/21 12/17/21 23:59 23:59 23:59 Intake Total 360 / 360 1280 / 1280 1216.66 / 1216.66 Output Total 150 / 150 900 / 900 Balance 210 / 210 380 / 380 1216.66 / 1216.66 Lab / Micro Data Result Diagrams: 12/16/21 05:38 12/16/21 05:38 Labs: Laboratory Results - last 24 hr 12/16/21 05:38: Direct Bilirubin 0.34 H Physical Exam Const alert Constitutional Narrative: angry, frustrated, worried about where he will go at [place]. He is cooperative with therapy. HEENT HEENT Narrative: MM are more moist today and the lips are not chapped. Eyes PERRL, EOMs intact bilaterally, conjunctivae normal and no scleral icterus Resp clear to auscultation bilaterally Resp Narrative: better air exchange than at admission Cardio regular rate, regular rhythm, no murmurs, no rub and no gallops GI normal to inspection, nondistended, normoactive bowel sounds, soft to palpation and non-tender Extremity no calf tenderness and no pedal edema Skin General Skin Exam: no breakdown Rashes: no rashes Neuro Neuro Narrative: no significant change since yesterday Assessment & Plan Assessment/Plan (1) Dehydration: PLAN: Continue intravenous fluids for now and recheck lab in the a.m. If his BUN and creatinine have come down significantly we will discontinue IV fluids. His intake seems to be improving. (2) Acute depression: PLAN: I got him to agree to continuing Remeron, assuring him that it is the lowest dose available, and told him we would give it earlier in the evening so there was no hangover effect in the morning. I suspect that he finally got a good night sleep last night and his body is trying to recover more so than hangover from 1 dose of the Remeron. (3) Hyperbilirubinemia: PLAN: Etiology of the hyperbilirubinemia is unclear at this time. Will request labs from Dr. Tijerina over the past few years and any imaging of the liver that may have been done. It is coming down and hemolyzing the blood in the cerebrum from the hemorrhagic CVA I suppose could cause and increase in bilirubin. Will check an LDH in the AM. (4) High blood pressure: PLAN: The BP is still consistently mildly elevated above goal. He will have been on the Amlodipine for 1 week on Tuesday and if the BP is still elevated above goal will increase the amlodipine to 5 mg. (5) Cognitive dysfunction: PLAN: Continue speech therapy (6) Hemorrhagic cerebrovascular accident (CVA): Charges/Coding Visit Charges Inpatient E&M: 84678 Subs Hosp L2
[2021-12-17] MEDS: 0.9% Saline Lock 10 ML Syringe IV (14:36)
[2021-12-17 15:08] VITALS: BMI 32.3
[2021-12-17] MEDS: Mirtazapine 15 MG Tablet 7.5 MG PO (18:44)
[2021-12-17 19:24] VITALS: BP 130/65; PULSE 70; RESP 18; TEMP 36.6; O2SAT 94
[2021-12-17 21:28] VITALS: PULSE 72
[2021-12-17] MEDS: Cholecalciferol (VIT D3) 25 MCG TABLET (1,000 UNITS) 250 MCG PO (21:28)
[2021-12-17 21:47] VITALS: BMI 32.3
[2021-12-17 22:00] VITALS: PULSE 82; RESP 15
[2021-12-18] MEDS: Dext 5%-0.45% NS 1,000 ML 100 ML IV (00:43)
[2021-12-18 06:24] LABS: Anion Gap 4 (5-15); BUN 19 mg/dL (7-18); BUN/Creat Ratio 18.3 RATIO (10-20); Calcium,Total 9.4 mg/dL (8.5-10.1); Chloride 105 mmol/L (98-107); Creatinine, Serum 1.04 mg/dL (0.70-1.30); EST Glomerular Filtration Rate 72 mL/min (>60); Est Glom Filt Rate - Afr Amer 87 mL/min (>60); Estimated Creatinine Clearance 51.15 ml/min; Glucose 109 mg/dL (74-106); LDH 208 U/L (87-241); Magnesium 2.2 mg/dL (1.6-2.6); Phosphorus 2.4 mg/dL (2.5-4.9); Sodium Level 137 mmol/L (136-145)
[2021-12-18 07:42] VITALS: BP 134/60; PULSE 69; RESP 16; TEMP 36.1; O2SAT 93
[2021-12-18] MEDS: Senna/Docusate Sodium 1 Tablet 2 TABLET PO ×2 (07:57→21:12)
[2021-12-18] MEDS: Heparin Injection (Vial) 5,000 UNIT/ML VIAL 5000 UNIT SC ×2 (07:57→21:12)
[2021-12-18 07:58] VITALS: BP 134/60; PULSE 69
[2021-12-18] MEDS: Metoprolol Tartrate 25 MG Tablet PO ×2 (07:58→21:13)
[2021-12-18] MEDS: Menthol/Lanolin/Calamine/Znox 113 GM Tube 1 APPLIC TOPICAL ×2 (07:58→21:13)
[2021-12-18] MEDS: Ascorbic Acid 500 MG Tablet PO ×2 (07:58→21:12)
[2021-12-18] MEDS: amLODIPine 2.5 MG Tablet PO (07:58)
--- NOTE | 2021-12-18 13:45 | CASEMGMT ---
Social Work contacted this worker requesting a meeting with this worker between her and her three daughters to discuss DC plans. SW agreed and scheduled meeting prior to Team, Tuesday at 11:45 am. Informed her insurance did approve with NRD 12/25. Will continue to follow. MICHAEL TorrezW
[2021-12-18 17:00] VITALS: BMI 32.3
[2021-12-18] MEDS: Mirtazapine 15 MG Tablet 7.5 MG PO (18:10)
[2021-12-18 18:55] VITALS: BP 145/82; PULSE 72; RESP 18; TEMP 36.4; O2SAT 95
[2021-12-18 21:13] VITALS: PULSE 78
[2021-12-18] MEDS: 0.9% Saline Lock 10 ML Syringe IV (21:21)
[2021-12-18 21:30] VITALS: BMI 32.3
[2021-12-18 22:00] VITALS: PULSE 72; RESP 16; O2SAT 95
[2021-12-19] MEDS: Magnesium Hydroxide 30 ML UDC PO (06:45)
[2021-12-19 07:16] VITALS: BP 147/87; PULSE 66; RESP 16; TEMP 36.4; O2SAT 93
[2021-12-19 08:34] VITALS: PULSE 66
[2021-12-19] MEDS: Senna/Docusate Sodium 1 Tablet 2 TABLET PO ×2 (08:34→20:30)
[2021-12-19] MEDS: Metoprolol Tartrate 25 MG Tablet PO ×2 (08:34→21:39)
[2021-12-19] MEDS: Heparin Injection (Vial) 5,000 UNIT/ML VIAL 5000 UNIT SC ×2 (08:35→20:30)
[2021-12-19] MEDS: Menthol/Lanolin/Calamine/Znox 113 GM Tube 1 APPLIC TOPICAL ×2 (08:35→20:30)
[2021-12-19] MEDS: amLODIPine 2.5 MG Tablet PO (08:35)
[2021-12-19] MEDS: Ascorbic Acid 500 MG Tablet PO ×2 (08:35→20:30)
[2021-12-19] MEDS: Bisacodyl 10 MG Suppository RC (09:35)
[2021-12-19] MEDS: Na Biphos/Potassium Phosphate PACKET 1 PACKET PO ×2 (12:14→20:30)
[2021-12-19 13:30] VITALS: BMI 32.3
[2021-12-19] MEDS: 0.9% Saline Lock 10 ML Syringe IV (17:57)
[2021-12-19] MEDS: Mirtazapine 15 MG Tablet 7.5 MG PO (20:30)
[2021-12-19 20:45] VITALS: BP 135/82; PULSE 82; RESP 17; TEMP 36.7; O2SAT 92; BMI 32.3
[2021-12-19 21:39] VITALS: BP 135/82; PULSE 82
[2021-12-19 22:01] LABS: Bacteria 0 SEEN /hpf (None Seen); Mucous, Urine 0 SEEN /hpf (<or=2+); Red Blood Cells-Urine 0 SEEN /hpf (0-5); Squamous Epithelial Cells - UA 0 SEEN /hpf (0-5); White Blood Cells 0 SEEN /hpf (0-5)
[2021-12-19 22:06] LABS: Color, Urine Yellow (Yellow); Glucose, Dipstick Normal (Normal); Ketone-Dipstick Negative (Negative); Leukocyte Esterase-Dipstick Negative /ul (Negative); Nitrite-Dipstick Negative (Negative); Occult Blood-Urine Negative /ul (Negative); Protein-Dipstick Negative (Negative); Specific Gravity, Urine 1.015 (1.002-1.030); Urine Bilirubin Dipstick Negative (Negative); Urine Clarity Clear (Clear); Urine Urobilinogen Normal (Normal)
--- NOTE | 2021-12-20 02:44 | NURSING ---
Reviewed and agree with VOICE AND DATA TECHNICIAN documentation and assessment charting.
[2021-12-20] MEDS: Na Biphos/Potassium Phosphate PACKET 1 PACKET PO ×3 (04:40→20:23)
[2021-12-20] MEDS: 0.9% Saline Lock 10 ML Syringe IV ×2 (04:40→13:55)
[2021-12-20 07:30] VITALS: BP 138/82; PULSE 77; RESP 16; TEMP 36.4
[2021-12-20] MEDS: Heparin Injection (Vial) 5,000 UNIT/ML VIAL 5000 UNIT SC ×2 (08:32→20:21)
[2021-12-20] MEDS: Ascorbic Acid 500 MG Tablet PO ×2 (08:33→20:22)
[2021-12-20] MEDS: amLODIPine 2.5 MG Tablet PO (08:33)
[2021-12-20 08:34] VITALS: PULSE 77
[2021-12-20] MEDS: Metoprolol Tartrate 25 MG Tablet PO ×2 (08:34→20:23)
[2021-12-20] MEDS: Menthol/Lanolin/Calamine/Znox 113 GM Tube 1 APPLIC TOPICAL ×2 (08:35→20:23)
[2021-12-20] MEDS: Senna/Docusate Sodium 1 Tablet 2 TABLET PO ×2 (08:35→20:22)
[2021-12-20] MEDS: Polyethylene Glycol 3350 17 GM PACKET PO (12:43)
[2021-12-20 14:49] VITALS: BMI 32.3
--- NOTE | 2021-12-20 18:52 | NURSING ---
Refused to get OOB today, family in visiting.
[2021-12-20] MEDS: Mirtazapine 15 MG Tablet 7.5 MG PO (20:22)
[2021-12-20 20:23] VITALS: BP 138/77; PULSE 97
[2021-12-20 20:30] VITALS: BP 138/77; PULSE 97; RESP 18; TEMP 36.2; O2SAT 98; BMI 32.3
--- NOTE | 2021-12-21 00:33 | NURSING ---
2030pt is sitting up in the bed with tv on and staff asked if he was watching the Olympics and pt reports that he wasn't paying much attention. pt noted to have a more flat affect this hs, pt reports that he has been in the same spot all day and wasn't moved. it was told in report that pt declined to get oob today because he was afraid of pooping while he was up. pt has been obsessing over bowels for several days because he could not go. miralax was added yesterday to help with pt's constipation issues . staff with pt assistance did hs care and oral care; pt repositioned in the bed for comfort. when staff was leaving the room pt stated i'm sorry for being a bad pt. staff replied that he was not a bad pt and that needed to give himself time to heal. staff encouraged pt to get some rest and work to his best ability every day. pt did report that he was having some mild tingling to his rt upper arm
[2021-12-21] MEDS: Na Biphos/Potassium Phosphate PACKET 1 PACKET PO (05:16)
[2021-12-21 07:32] VITALS: BP 145/74; PULSE 74; RESP 16; TEMP 36.6; O2SAT 94
[2021-12-21 07:57] VITALS: BP 145/74; PULSE 74
[2021-12-21] MEDS: Polyethylene Glycol 3350 17 GM PACKET PO (07:57)
[2021-12-21] MEDS: Metoprolol Tartrate 25 MG Tablet PO ×2 (07:57→20:45)
[2021-12-21] MEDS: Heparin Injection (Vial) 5,000 UNIT/ML VIAL 5000 UNIT SC ×2 (07:57→20:46)
[2021-12-21] MEDS: Menthol/Lanolin/Calamine/Znox 113 GM Tube 1 APPLIC TOPICAL ×2 (07:58→20:58)
[2021-12-21] MEDS: Ascorbic Acid 500 MG Tablet PO ×2 (07:58→20:46)
[2021-12-21] MEDS: Senna/Docusate Sodium 1 Tablet 2 TABLET PO ×2 (07:58→20:46)
[2021-12-21] MEDS: amLODIPine 2.5 MG Tablet PO (07:59)
--- NOTE | 2021-12-21 09:54 | PCM.PROGNOTE ---
Subjective Subjective Jaiden was seen on TEAM rounds today and his Aide and 3 of his dtrs were also present Afebrile VSS - BP's are mildly over goal. Maintaining appropriate oxygen saturation on RA Oral intake is very good Discussed with nursing - no problems that need addressed Reviewed the PT/OT/ST notes - he is making steady progress. I watched him doing sit to stands on the wall rail today and he was able to do 8 in 30 secs using his Left arm to pull himself up and the left leg to push. He is needing less assistance. He is very motivated to get better and works hard. Medication list reviewed. Jaiden has no complaints today. He is eating better and he is staying hydrated. He denies chest pain, shortness of breath, cough, nausea/vomiting/abdominal pain, lightheadedness, calf pain. He is having regular bowel movements. LDH was WNL making hemolysis less likely. Objective Data Objective Data Vital Signs: Vital Signs Temp Pulse Resp BP Pulse Ox 97.9 F 74 16 145/74 H 94 12/21/21 07:32 12/21/21 07:57 12/21/21 07:32 12/21/21 07:57 12/21/21 07:32 Oxygen Delivery Method Room Air Weight: 201 lb 8.04 oz Body Mass Index (BMI) 32.3 Intake & Output: Intake and Output for Last 24 Hours 12/19/21 12/20/21 12/21/21 23:59 23:59 23:59 Intake Total 1770 / 1770 1840 / 1840 378 / 378 Output Total 2500 / 2500 1500 / 1500 200 / 200 Balance -730 / -730 340 / 340 178 / 178 Lab / Micro Data Result Diagrams: 12/16/21 05:38 12/18/21 05:38 Physical Exam Const alert Constitutional Narrative: Emotional and tearful at times. He no longer feels groggy in the AM General Appearance: cooperative HEENT moist oral mucous membranes Eyes conjunctivae normal and no scleral icterus Resp clear to auscultation bilaterally Cardio regular rate, regular rhythm and no gallops GI GI Narrative: he is continent of urine and it is pale and clear today. Extremity no calf tenderness and no pedal edema Skin General Skin Exam: no breakdown Rashes: no rashes Psych Psych Narrative: Still very emotionally labile and tearful suddenly. He is disturbed by this and is apologizing for crying. He is no longer complaining about the Remeron His family supports taking Remeron. Assessment & Plan Assessment/Plan (1) Dehydration: (2) Acute depression: (3) Hyperbilirubinemia: (4) Pseudobulbar affect: (5) Cognitive dysfunction: (6) Hemorrhagic cerebrovascular accident (CVA): PLAN: 1. Continue the Remeron. 2. Continue therapy 3. consider imaging the liver and biliary system as an OP if the bilirubin remains elevated. Charges/Coding Visit Charges Inpatient E&M: 30663 Subs Hosp L2
--- NOTE | 2021-12-21 13:44 | CASEMGMT ---
Social Work Met with , 4 daughters and granddaughter prior to Team meeting for approx. 40 minutes to answer questions and discuss DC plans. Discussed at length Medicaid, spend down process with liquidation to assets. Explained SNF placement - skilled and nonskilled, and [facility] insurance coverage. IDT recommending skilled SNF stay after DC on RU. Discussed [facility] does not have to approve for SNF stay and is only in network with [facility] and [facility]. If pt admits to an out of network SNF or insurance denies, pt would be private pay. Provided [facility] and [facility] pricing. Provided SNF list with Medicare quality ratings and to utilize Medicare.gov/nursinghomecompare. Encouraged to have SNF choices to this worker by to report on the update. requested [facility] and will provide more choices. IDT met with pt, and family for Team meeting. Discussed patient's progress in PT/OT/ST and nursing. Pt making progress but still requires x2 assist. Reiterated NRD 12/25. SW will continue to follow. Louise Finney, APPAREL DESIGNER ELECTRICIAN SECOND
[2021-12-21 14:19] VITALS: BMI 32.3
[2021-12-21] MEDS: Mirtazapine 15 MG Tablet 7.5 MG PO (19:40)
[2021-12-21 20:45] VITALS: PULSE 76
[2021-12-21] MEDS: Magnesium Hydroxide 30 ML UDC PO (20:45)
[2021-12-21] MEDS: Cholecalciferol (VIT D3) 25 MCG TABLET (1,000 UNITS) 250 MCG PO (20:45)
[2021-12-21 21:15] VITALS: BP 120/64; PULSE 73; RESP 16; TEMP 36.6; O2SAT 96
[2021-12-22 06:00] VITALS: BMI 32.3
[2021-12-22] MEDS: Bisacodyl 10 MG Suppository RC (06:38)
[2021-12-22 07:10] VITALS: BP 134/85; PULSE 74; RESP 17; TEMP 36.6; O2SAT 93
[2021-12-22 07:31] LABS: Bedside Glucose 124 mg/dL (70-110)
[2021-12-22] MEDS: Polyethylene Glycol 3350 17 GM PACKET PO (08:21)
[2021-12-22 08:22] VITALS: BP 134/84; PULSE 74
[2021-12-22] MEDS: amLODIPine 2.5 MG Tablet PO (08:22)
[2021-12-22] MEDS: Senna/Docusate Sodium 1 Tablet 2 TABLET PO ×2 (08:22→20:46)
[2021-12-22] MEDS: Heparin Injection (Vial) 5,000 UNIT/ML VIAL 5000 UNIT SC ×2 (08:22→20:45)
[2021-12-22] MEDS: Metoprolol Tartrate 25 MG Tablet PO ×2 (08:22→20:46)
[2021-12-22] MEDS: Ascorbic Acid 500 MG Tablet PO ×2 (08:23→20:51)
[2021-12-22] MEDS: Menthol/Lanolin/Calamine/Znox 113 GM Tube 1 APPLIC TOPICAL ×2 (08:31→20:45)
--- NOTE | 2021-12-22 09:54 | CASEMGMT ---
Social Work Updated that [facility] accepted pt. Reiterated NRD 12/25. The plan will be once pt gets a DC date on RU, if [facility] has a bed, they will submit for precert. If approved, pt will DC to [facility]. If denied, pt will admit to [facility] private pay. SW to continue to follow. Louise Finney, MICHAEL PALMERW
[2021-12-22 14:09] VITALS: BMI 32.3
[2021-12-22] MEDS: Mirtazapine 15 MG Tablet 7.5 MG PO (18:11)
[2021-12-22 19:23] VITALS: BP 137/89; PULSE 82; RESP 16; TEMP 36.6; O2SAT 98
[2021-12-22 20:46] VITALS: PULSE 78
[2021-12-22] MEDS: Cholecalciferol (VIT D3) 25 MCG TABLET (1,000 UNITS) 250 MCG PO (20:48)
[2021-12-22 21:10] VITALS: BMI 32.3
[2021-12-22 21:30] VITALS: BMI 32.3
[2021-12-22 22:00] VITALS: PULSE 82; RESP 16
[2021-12-22] MEDS: 0.9% Saline Lock 10 ML Syringe IV (23:21)
--- NOTE | 2021-12-23 02:49 | NURSING ---
Pt refused full dose of VitD. Pt took 2 of 10 tablets per pt request. Pt states he feels like they are coming out of pt's ears, when he has to take so many in one dose.
[2021-12-23 07:04] VITALS: BP 145/83; PULSE 68; RESP 18; TEMP 36.7; O2SAT 97
[2021-12-23] MEDS: Menthol/Lanolin/Calamine/Znox 113 GM Tube 1 APPLIC TOPICAL ×2 (08:15→20:56)
[2021-12-23] MEDS: Heparin Injection (Vial) 5,000 UNIT/ML VIAL 5000 UNIT SC ×2 (08:15→20:53)
[2021-12-23 08:16] VITALS: PULSE 68
[2021-12-23] MEDS: Senna/Docusate Sodium 1 Tablet 2 TABLET PO ×2 (08:16→20:54)
[2021-12-23] MEDS: Polyethylene Glycol 3350 17 GM PACKET PO (08:16)
[2021-12-23] MEDS: Ascorbic Acid 500 MG Tablet PO ×2 (08:16→20:55)
[2021-12-23] MEDS: amLODIPine 2.5 MG Tablet PO (08:16)
[2021-12-23] MEDS: Metoprolol Tartrate 25 MG Tablet PO ×2 (08:16→20:54)
--- NOTE | 2021-12-23 15:17 | CHAPLAIN ---
Type of Pastoral Visit _x__ Initial Visit ___ Follow-up Visit ___ On-call Visit ___ General Patient Visit ___ Spiritual Assessment ___ Family Conference ___ Bereavement ___ Rapid Response ___ Code Blue ___ Other (describe below) Pastoral Care Referral From _x__ Patient ___ Family ___ Nurse ___ Physician ___ Warper Tender ___ Senior Analyst ___ Other (describe below) Sacrament/Intervention _x__ Active listening ___ Anointing ___ Mu-Ism ___ Bereavement ___ Communion ___ Ashely exploration ___ _x__ Life review _x__ Prayer ___ Reconciliation ___ Sacrament of Sick _x__ Supportive presence ___ Wedding ___ Other (describe below) Pastoral Comments patient states he was never sick until two weeks ago and discusses this change; pt has ashely and has good family support; patient concern is about getting approved for his next facility;
[2021-12-23 15:44] VITALS: BMI 32.3
[2021-12-23] MEDS: Mirtazapine 15 MG Tablet PO (18:25)
[2021-12-23 20:54] VITALS: PULSE 73
[2021-12-23] MEDS: 0.9% Saline Lock 10 ML Syringe IV (21:05)
[2021-12-23 22:00] VITALS: BP 144/85; PULSE 73; RESP 18; TEMP 36.6; O2SAT 94
[2021-12-24 08:27] VITALS: PULSE 73
[2021-12-24] MEDS: Heparin Injection (Vial) 5,000 UNIT/ML VIAL 5000 UNIT SC ×2 (08:27→21:16)
[2021-12-24] MEDS: Metoprolol Tartrate 25 MG Tablet PO ×2 (08:27→21:16)
[2021-12-24] MEDS: Ascorbic Acid 500 MG Tablet PO ×2 (08:28→21:16)
[2021-12-24] MEDS: amLODIPine 2.5 MG Tablet PO ×2 (08:28→13:03)
[2021-12-24] MEDS: Senna/Docusate Sodium 1 Tablet 2 TABLET PO (08:28)
[2021-12-24] MEDS: Cholecalciferol (VIT D3) 25 MCG TABLET (1,000 UNITS) PO (08:28)
[2021-12-24] MEDS: Polyethylene Glycol 3350 17 GM PACKET PO (08:28)
[2021-12-24 08:57] VITALS: BP 125/80; PULSE 73; RESP 16; TEMP 36.2; O2SAT 94
[2021-12-24] MEDS: 0.9% Saline Lock 10 ML Syringe IV ×2 (10:04→21:22)
[2021-12-24] MEDS: Menthol/Lanolin/Calamine/Znox 113 GM Tube 1 APPLIC TOPICAL ×2 (11:15→21:17)
--- NOTE | 2021-12-24 11:58 | PCM.PROGNOTE ---
Subjective Subjective Afebrile VSS Maintaining appropriate oxygen saturation on RA Oral intake is very good The last bowel movement was 12/22/2021 Discussed with nursing - no problems that need addressed Reviewed the PT/OT/ST notes Medication list reviewed. Remeron was increased to 15 mg p.o. nightly last night and he slept well. Alert, sti8ll with episodic crying....seems to be increasing Lungs - CTA, speaking in complete sentences, no resp distress HRRR ABD - soft, NT, ND. normal BS's. no peripheral edema Skin - no rashes and no wounds Impressions 1. Post stroke debility 2. Depression 3. pseudobulbar affect 3. HTN BMP, phos and HH in the AM Increase the Amlodipine to 5 mg daily - goal BP is less than 130/80 with no systolics < 100 Objective Data Objective Data Vital Signs: Vital Signs Temp Pulse Resp BP Pulse Ox 97.1 F L 73 16 125/80 H 94 12/24/21 08:57 12/24/21 08:57 12/24/21 08:57 12/24/21 08:57 12/24/21 08:57 Oxygen Delivery Method Room Air Weight: 201 lb 8.04 oz Body Mass Index (BMI) 32.3 Intake & Output: Intake and Output for Last 24 Hours 12/22/21 12/23/21 12/24/21 23:59 23:59 23:59 Intake Total 2400 / 2400 1680 / 1830 610 / 610 Output Total 2500 / 2500 1175 / 1775 800 / 800 Balance -100 / -100 505 / 55 -190 / -190 Lab / Micro Data Result Diagrams: 12/26/21 12:17 12/25/21 05:49 Charges/Coding Visit Charges Inpatient E&M: 94833 Subs Hosp L2
[2021-12-24 14:12] VITALS: BMI 32.3
[2021-12-24 19:33] VITALS: BP 147/77; PULSE 82; RESP 17; TEMP 36.2; O2SAT 93
[2021-12-24] MEDS: Mirtazapine 15 MG Tablet PO (19:36)
[2021-12-24 21:16] VITALS: BP 147/77; PULSE 82
[2021-12-25 05:57] LABS: Hematocrit 41.9 % (40-54); Hemoglobin 14.7 g/dL (13.0-16.5)
[2021-12-25 06:29] LABS: Anion Gap 4 (5-15); BUN 21 mg/dL (7-18); BUN/Creat Ratio 21.2 RATIO (10-20); Calcium,Total 9.6 mg/dL (8.5-10.1); Chloride 105 mmol/L (98-107); Creatinine, Serum 0.99 mg/dL (0.70-1.30); EST Glomerular Filtration Rate 76 mL/min (>60); Est Glom Filt Rate - Afr Amer 92 mL/min (>60); Estimated Creatinine Clearance 53.74 ml/min; Glucose 116 mg/dL (74-106); Phosphorus 2.6 mg/dL (2.5-4.9); Potassium 4.5 mmol/L (3.5-5.1); Sodium Level 137 mmol/L (136-145)
[2021-12-25 07:14] VITALS: BP 112/82; PULSE 76; RESP 20; TEMP 36.6; O2SAT 93
[2021-12-25 07:56] VITALS: PULSE 76
[2021-12-25] MEDS: Heparin Injection (Vial) 5,000 UNIT/ML VIAL 5000 UNIT SC ×2 (07:56→20:14)
[2021-12-25] MEDS: Metoprolol Tartrate 25 MG Tablet PO ×2 (07:56→20:14)
[2021-12-25] MEDS: Ascorbic Acid 500 MG Tablet PO ×2 (07:57→20:15)
[2021-12-25] MEDS: amLODIPine 5 MG Tablet PO (07:57)
[2021-12-25] MEDS: Cholecalciferol (VIT D3) 25 MCG TABLET (1,000 UNITS) PO (07:58)
[2021-12-25] MEDS: Menthol/Lanolin/Calamine/Znox 113 GM Tube 1 APPLIC TOPICAL ×2 (07:58→20:11)
[2021-12-25] MEDS: 0.9% Saline Lock 10 ML Syringe IV ×2 (08:49→20:18)
--- NOTE | 2021-12-25 10:27 | PCM.PROGNOTE ---
Subjective Subjective Afebrile VSS Maintaining appropriate oxygen saturation on RA Oral intake is good Discussed with nursing - He is sleeping well at night. He seems tired today per nursing and just seems off? Reviewed the PT/OT/ST notes Medication list reviewed. All lab was personally reviewed. Hemoglobin is stable at 14.7. Electrolytes are within normal limits. The BUN is elevated at 21 but the creatinine is 0.99 today, down from 1.19 on 12/16/2021. Phosphorus is normal at 2.6 following supplementation. Jaiden has no specific complaints. He denies CP, SOB, N/V/abd pain, dysuria, cough, sore throat, diarrhea, calf pain. He is very down and is afraid that he is going to end up in a NH. He is trying very hard but, progress is slow. Emotions are very labile. He was started on Remeron approximately a week ago and the dose was increased to 15 mg a day on 12/23/21. No adverse side effects. He has had no fevers. Objective Data Objective Data Vital Signs: Vital Signs Temp Pulse Resp BP Pulse Ox 97.8 F 76 20 H 112/82 H 93 12/25/21 07:14 12/25/21 07:56 12/25/21 07:14 12/25/21 07:14 12/25/21 07:14 Oxygen Delivery Method Room Air Weight: 201 lb 8.04 oz Body Mass Index (BMI) 32.3 Intake & Output: Intake and Output for Last 24 Hours 12/23/21 12/24/21 12/25/21 23:59 23:59 23:59 Intake Total 1680 / 1830 1370 / 1370 440 / 440 Output Total 1175 / 1775 1700 / 1700 500 / 500 Balance 505 / 55 -330 / -330 -60 / -60 Lab / Micro Data Result Diagrams: 12/26/21 12:17 12/25/21 05:49 Labs: Laboratory Results - last 24 hr 12/25/21 05:49: Hgb 14.7, Hct 41.9 12/25/21 05:49: Sodium 137, Potassium 4.5, Chloride 105, Carbon Dioxide 28.0, Anion Gap 4 L, BUN 21 H, Creatinine 0.99, Estim Creat Clear Calc 53.74, Est GFR (MDRD) Af Amer 92, Est GFR (MDRD) Non-Af 76, BUN/Creatinine Ratio 21.2 H, Glucose 116 H, Calcium 9.6, Phosphorus 2.6 Physical Exam Const alert and oriented x3 Constitutional Narrative: tearful, sitting in the recliner at the bedside watching TV General Appearance: cooperative HEENT moist oral mucous membranes and oropharynx normal Head and Scalp: normal to inspection Neck no lymphadenopathy Resp normal respiratory effort and clear to auscultation bilaterally Effort and Inspection: able to speak in complete sentences Cardio regular rate, regular rhythm and no gallops GI normal to inspection, nondistended, normoactive bowel sounds and soft to palpation GI Narrative: no guarding with palpation Extremity no calf tenderness and no pedal edema Skin no wounds General Skin Exam: no breakdown Rashes: no rashes Psych Psych Narrative: despondent. Perseverates on having to leave rehab before he is good enough to go home. Family is considering taking him home rather than going to a SNF at [place]. Would like to see him go to [facility]. Assessment & Plan Assessment/Plan (1) Thrush, oral: (2) Acute depression: (3) Pseudobulbar affect: (4) High blood pressure: (5) Cognitive dysfunction: (6) Hemorrhagic cerebrovascular accident (CVA): PLAN: 1. No changes to the drug regimen today 2. Continue therapy 3. Would benefit from psychotherapy 4. He has good motivation but, I suspect the depression is holding him back. May need to revisit [place] with Jaiden and his family. Charges/Coding Visit Charges Inpatient E&M: 23620 Subs Hosp L2
[2021-12-25 14:53] VITALS: BMI 32.3
[2021-12-25 19:08] VITALS: BP 143/74; PULSE 85; RESP 18; TEMP 36.9; O2SAT 93
[2021-12-25] MEDS: Mirtazapine 15 MG Tablet PO (20:08)
[2021-12-25 20:14] VITALS: PULSE 82
[2021-12-25] MEDS: Senna/Docusate Sodium 1 Tablet 2 TABLET PO (20:14)
[2021-12-25 20:30] VITALS: BMI 32.3
[2021-12-25 22:00] VITALS: PULSE 80; RESP 16; O2SAT 93
[2021-12-26] VITALS (12 sets, daily range): BP systolic 129–137; BP diastolic 70–77; PULSE 81–89; RESP 16–22; TEMP 36.9–38.2; O2SAT 86–95; BMI 32.3
[2021-12-26] MEDS: Metoprolol Tartrate 25 MG Tablet PO ×2 (08:37→20:44)
[2021-12-26] MEDS: Heparin Injection (Vial) 5,000 UNIT/ML VIAL 5000 UNIT SC ×2 (08:37→20:43)
[2021-12-26] MEDS: Menthol/Lanolin/Calamine/Znox 113 GM Tube 1 APPLIC TOPICAL ×2 (08:37→20:42)
[2021-12-26] MEDS: amLODIPine 5 MG Tablet PO (08:38)
[2021-12-26] MEDS: Ascorbic Acid 500 MG Tablet PO ×2 (08:38→20:45)
[2021-12-26] MEDS: Senna/Docusate Sodium 1 Tablet 2 TABLET PO ×2 (08:38→20:44)
[2021-12-26] MEDS: Cholecalciferol (VIT D3) 25 MCG TABLET (1,000 UNITS) PO (08:39)
--- NOTE | 2021-12-26 11:20 | RAD_ITS ---
STUDY: X-RAY CHEST REASON FOR EXAM: Male, 86 years old. Shortness of breath TECHNIQUE: Single AP portable view of the chest. COMPARISON: 12/04/2021. FINDINGS: Hypoventilatory changes. No focal infiltrate is seen. There is no demonstrated pleural abnormality. Normal size heart. Normal mediastinum and finn. Normal visualized pulmonary arteries. There is atherosclerotic tortuosity of the aortic arch and descending thoracic aorta. Stable soft tissues and osseous There is no demonstrated abnormality of the visualized soft tissue structures of the upper abdomen. RAD/Chest PA and Lateral IMPRESSION: No active pulmonary disease. Electronically Signed: Sal Rudd, at 12:15 RUST ,
[2021-12-26 12:35] LABS: Absolute Lymphocyte Count 1.65 X10^3/uL (0.83-4.51); Absolute Neutrophil Count 8.2 X10^3/uL (2.0-7.7); Basophil# 0.03 X10^3/uL; Basophil% 0.3 % (0-1); Eosinophil# 0.11 X10^3/uL; Hematocrit 41.6 % (40-54); Hemoglobin 14.6 g/dL (13.0-16.5); Lymphocyte # 1.65 X10^3/ul (0.83-4.51); Lymphocyte % 14.5 % (19-41); Mean Corp Hgb Conc 35.1 g/dL (32-36); Mean Corpuscular Hgb 34.7 pg (27.0-32.0); Mean Corpuscular Volume 98.8 fL (80-94); Mean Platelet Vol. 8.7 fl (6.2-12.0); Monocyte# 1.28 X10^3/uL; Monocyte% 11.3 % (0-10); NRBC Flagged by Analyzer 0 % (0-5); Neutrophil # 8.23 X10^3/uL (2.7-7.7); Neutrophil % 72.5 % (47-70); Platelet Count 159 K/mm3 (150-450); RBC Distribution Width CV 12.1 % (11.6-14.6); RBC Distribution Width SD 43.8 fl (35.1-43.9); Red Blood Count 4.21 M/mm3 (4.6-6.2); White Blood Count 11.4 K/mm3 (4.4-11.0)
--- NOTE | 2021-12-26 15:00 | NURSING ---
1130 am patient got up to chair from bed x 2 max assist stand pivot. Patient was tested on RA since battery tester put oxygen on him earlier in the shift. He was 86% and SOB. Dr. Castano notified. New orders received. aware. Lungs very diminished right posterior lopez and rubs noted with faint wheezing.
[2021-12-26 16:10] LABS: Bacteria 0 SEEN /hpf (None Seen); Mucous, Urine 0 SEEN /hpf (<or=2+); Red Blood Cells-Urine 0 SEEN /hpf (0-5); Squamous Epithelial Cells - UA 0 SEEN /hpf (0-5); White Blood Cells 0 SEEN /hpf (0-5)
[2021-12-26 16:29] LABS: Color, Urine Yellow (Yellow); Glucose, Dipstick Normal (Normal); Ketone-Dipstick Negative (Negative); Leukocyte Esterase-Dipstick Negative /ul (Negative); Nitrite-Dipstick Negative (Negative); Occult Blood-Urine 10 /ul (Negative); Protein-Dipstick 15 mg/dl (Negative); Urine Bilirubin Dipstick Negative (Negative); Urine Clarity Clear (Clear); Urine Urobilinogen Normal (Normal)
[2021-12-26] MEDS: Mirtazapine 15 MG Tablet PO (17:37)
[2021-12-26] MEDS: 0.9% Saline Lock 10 ML Syringe IV (22:00)
[2021-12-27 01:42] VITALS: BMI 32.3
[2021-12-27] MEDS: 0.9% Saline Lock 10 ML Syringe IV ×4 (02:04→21:52)
--- NOTE | 2021-12-27 04:27 | NURSING ---
REVIEWED AND AGREE WITH CHIEF PSYCHOLOGY'S FUNCTIONAL ASSESSMENT AND HANDOFF CHARTING.
[2021-12-27 07:37] VITALS: BP 123/73; PULSE 80; RESP 22; TEMP 36.8; O2SAT 94
[2021-12-27] MEDS: Heparin Injection (Vial) 5,000 UNIT/ML VIAL 5000 UNIT SC ×2 (07:59→20:36)
[2021-12-27 08:00] VITALS: BP 123/73; PULSE 80
[2021-12-27] MEDS: Polyethylene Glycol 3350 17 GM PACKET PO (08:00)
[2021-12-27] MEDS: Metoprolol Tartrate 25 MG Tablet PO ×2 (08:00→20:37)
[2021-12-27] MEDS: Ascorbic Acid 500 MG Tablet PO ×2 (08:01→20:37)
[2021-12-27] MEDS: Senna/Docusate Sodium 1 Tablet 2 TABLET PO ×2 (08:01→20:37)
[2021-12-27] MEDS: amLODIPine 5 MG Tablet PO (08:01)
[2021-12-27] MEDS: Cholecalciferol (VIT D3) 25 MCG TABLET (1,000 UNITS) PO (08:03)
[2021-12-27] MEDS: Menthol/Lanolin/Calamine/Znox 113 GM Tube 1 APPLIC TOPICAL ×2 (08:04→20:36)
[2021-12-27 12:03] VITALS: O2SAT 94
[2021-12-27 13:32] VITALS: BMI 32.3
[2021-12-27 14:00] VITALS: TEMP 36.5
[2021-12-27] MEDS: Bisacodyl 10 MG Suppository RC (16:40)
--- NOTE | 2021-12-27 18:00 | NURSING ---
Patient had complained of an upset stomach. This nurse offered him a R/S since it was the third day no BM and he accepted and had large soft results. Patient reported his stomach felt better. Patient got up in chair from 11am to 1pm and ate good for lunch. x2 max stand pivot transfer. Patient given 1:1 due to being sad that he is not better.
[2021-12-27 19:07] VITALS: BP 130/80; PULSE 70; RESP 19; TEMP 36.4; O2SAT 94
[2021-12-27] MEDS: Mirtazapine 15 MG Tablet PO (19:18)
[2021-12-27 20:37] VITALS: BP 130/80; PULSE 70
[2021-12-28 00:27] VITALS: BMI 32.3
[2021-12-28] MEDS: 0.9% Saline Lock 10 ML Syringe IV ×3 (01:57→21:43)
[2021-12-28 03:42] VITALS: BP 127/66; PULSE 79; RESP 16; TEMP 37.1; O2SAT 94
--- NOTE | 2021-12-28 03:43 | NURSING ---
PT HAS BEEN RESTING QUIETLY ALL NIGHT WITH EYES CLOSED. PT PUTS FACILITIES AND GROUNDS DIRECTOR LIGHT AND REPORTS THAT HE IS HAVING PROBLEM BREATHING. PT FOUND WITH RESPIRATIONS EVEN AND EASY. PT'S SKIN IS WARM, PINK AND DRY. PT SAYS i DON'T KNOW WHAT'S WRONG WITH ME AND STATES HE HAS PAIN DEEP INSIDE ABDOMEN. ABDOMEN IS SOFT AND APPEARS NONTENDER UPON PALPATION. PT APPEARS SAD AND FORLORN. DISCUSSED WITH PT THE POSSIBILITY OF TAKING AN ANTIDEPRESSANT MEDICATION TO HELP HIM IMPROVE THE WAY HE IS FEELING. PT STATES HE IS WILLING TO TRY MEDICATION IF IT WOULD HELP HIM FEEL BETTER.
--- NOTE | 2021-12-28 03:56 | NURSING ---
REVIEWED AND AGREE WITH HANDLE AND VENT MACHINE OPERATOR'S FUNCTIONAL ASSESSMENT AND HANDOFF CHARTING.
[2021-12-28 07:24] VITALS: BP 116/63; PULSE 80; RESP 20; TEMP 36.7; O2SAT 93
[2021-12-28 08:34] VITALS: PULSE 76
[2021-12-28] MEDS: Metoprolol Tartrate 25 MG Tablet PO ×2 (08:34→20:18)
[2021-12-28] MEDS: Cholecalciferol (VIT D3) 25 MCG TABLET (1,000 UNITS) PO (08:34)
[2021-12-28] MEDS: amLODIPine 5 MG Tablet PO (08:34)
[2021-12-28] MEDS: Senna/Docusate Sodium 1 Tablet 2 TABLET PO ×2 (08:35→20:18)
[2021-12-28] MEDS: Ascorbic Acid 500 MG Tablet PO ×2 (08:35→20:19)
[2021-12-28] MEDS: Polyethylene Glycol 3350 17 GM PACKET PO (08:43)
[2021-12-28] MEDS: Heparin Injection (Vial) 5,000 UNIT/ML VIAL 5000 UNIT SC ×2 (08:48→20:17)
[2021-12-28] MEDS: Bisacodyl 10 MG Suppository RC (08:54)
--- NOTE | 2021-12-28 09:38 | PN_ITS ---
Subjective Subjective Day #3 Brian Afebrile now. Had temps to 100.7 over the weekend. VSS Maintaining appropriate oxygen saturation on a 2 LPM cannula. He dropped his sat Tuesday. Oral intake is good Discussed with nursing - today he c/o feeling bloated and being gassy. He was given 2 suppositories. He had a BM but still feels bloated. He told me he had a large BM yesterday. He is taking Miralax and Senna Reviewed the PT/OT/ST notes Medication list reviewed. Jaiden denies abd pain. He has nausea at times......donya when he drinks water. No vomiting. Denies SOB, CP, cough, sore throat, dysuria, ear pain, lightheadedn ess. No diarrhea. No mouth pain, no odynophagia. All recent lab was personally reviewed. Creatinine is stable. ELYTES are WNL. WBC on Tuesday was elevated at 11.4. Hemoglobin is stable. No ketones in the urine. Leukocyte esterase was negative and there were 0 RBCs and 0 WBCs seen. Rapid Covid was negative. Respiratory panel was negative. CXR was negative for infiltrates. Lungs not fully expanded. Objective Data Objective Data Vital Signs: Vital Signs Temp Pulse Resp BP Pulse Ox 98.1 F 76 20 H 116/63 93 12/28/21 07:24 12/28/21 08:34 12/28/21 07:24 12/28/21 07:24 12/28/21 07:24 Oxygen Flow Rate (L/min) 2 Oxygen Delivery Method Nasal Cannula Weight: 201 lb 8.04 oz Body Mass Index (BMI) 32.3 Intake & Output: Intake and Output for Last 24 Hours 12/26/21 12/27/21 12/28/21 23:59 23:59 23:59 Intake Total 2180 / 2180 1790 / 1790 550 / 550 Output Total 1635 / 1635 1300 / 1300 400 / 400 Balance 545 / 545 490 / 490 150 / 150 Lab / Micro Data Result Diagrams: 12/26/21 12:17 12/25/21 05:49 Micro: Microbiology 12/26/21 11:30 Mucosa - Nose Respiratory Panel (PCR) - Final 12/26/21 11:30 Nasal Secretion SARS-CoV-2 Antigen (Rapid) - Final Physical Exam Const alert and oriented x3 Constitutional Narrative: Tearful. Wants to try the antidepressant now. When I told him it had already been started he was happy. HEENT normocephalic, head/scalp atraumatic and moist oral mucous membranes HEENT Narrative: Thrush has resolved. Post pharynx is without exudate. Neck no lymphadenopathy Resp normal respiratory effort and clear to auscultation bilaterally Resp Narrative: Not tachypneic. No respiratory distress. able to speak in complete sentences. Auscultation: diminished lung sounds localized (bases posteriorly.); Negative for rales, rhonchi or wheezes Cardio regular rate, regular rhythm, no murmurs, no rub and no gallops GI GI Narrative: The abd is mildly distended but, it is soft to palpation. He did not guard with palpation. Very active BS's in the lower abd and somewhat diminished in the upper quadrants. No organomegaly. Extremity General Extremity: Negative for clubbing, cyanosis or edema Skin General Skin Exam: no breakdown and dry skin Rashes: no rashes Neuro Neuro Narrative: Still with R facial droop and significant dysarthria. R side weakness is slowly improving. Psych denies suicidal ideation Psych Narrative: He continues to have labile emotions and gets tearful very easily. He is worried he is going to be kicked out and he wants to get better first. Appearance: appropriate Attitude: No agitated Mood & Affect: depressed; Negative for anxious Thought Content: No delusion(s) and No hallucination(s) Assessment & Plan Assessment/Plan (1) Hemorrhagic cerebrovascular accident (CVA): (2) FUO (fever of unknown origin): (3) Atelectasis of both lungs: (4) Abdominal bloating: (5) Hyperbilirubinemia: (6) Acute depression: (7) Pseudobulbar affect: (8) Cognitive dysfunction: (9) Thrush, oral: (10) Hypoxia: PLAN: 1. KUB today 2. Continue the Zosyn 3. Check a CBC with diff and a CMP today 4. PEP and get him up in the chair to do IS 5. Continue therapy Not ready to DC. We have had a set back with the fever and leukocytosis. No source for infection yet. Await the results of the KUB.....I suspect he has an ileus. Fever resolved with Zosyn so will continue. Appetite and food intake is decreased. Remeron was increased to 15 mg last week. Charges/Coding Visit Charges Inpatient E&M: 81461 Subs Hosp L3
[2021-12-28 11:07] VITALS: O2SAT 91
[2021-12-28] MEDS: Menthol/Lanolin/Calamine/Znox 113 GM Tube 1 APPLIC TOPICAL ×2 (12:10→20:17)
--- NOTE | 2021-12-28 13:25 | RAD_ITS ---
STUDY: X-RAY - ABDOMEN/PELVIS REASON FOR EXAM: Male, 86 years old. Abdominal pain and distention TECHNIQUE: 3 AP portable views COMPARISON: None. FINDINGS: Normal visualized lung bases. Nondistended air-filled loops of small and large bowel in all 4 quadrants of the abdomen. No demonstrated transition point. There is no demonstrated free abdominal air. The visualized liver, spleen and kidneys are grossly normal in size and morphology. Normal soft tissue structures. There are diffuse degenerative changes of the visualized lumbar spine. RAD/Abdomen Single View (Portable) IMPRESSION: Ileus Electronically Signed: Estevan Batista MD at 13:43 EST ,
--- NOTE | 2021-12-28 13:53 | CASEMGMT ---
Social Work IDT met with patient, and 3 daughters for Team meeting. Discussed patient's progress in PT/OT/ST and nursing. Explained [facility] NRD 01/01 and a LCD was indicated if pt does not show further improvement. The plan remains [facility] if insurance approves or [facility] private pay if insurance denies. SW to continue to follow. Louise Finney, QUARRYMAN EDGE RUNNER
[2021-12-28 16:01] LABS: Absolute Lymphocyte Count 1.61 X10^3/uL (0.83-4.51); Absolute Neutrophil Count 7.7 X10^3/uL (2.0-7.7); Basophil# 0.03 X10^3/uL; Basophil% 0.3 % (0-1); Eosinophil# 0.08 X10^3/uL; Eosinophils% 0.7 % (0-5); Hematocrit 41.1 % (40-54); Lymphocyte # 1.61 X10^3/ul (0.83-4.51); Lymphocyte % 15.1 % (19-41); Mean Corp Hgb Conc 34.1 g/dL (32-36); Mean Corpuscular Hgb 33.4 pg (27.0-32.0); Mean Corpuscular Volume 98.1 fL (80-94); Mean Platelet Vol. 8.6 fl (6.2-12.0); Monocyte# 1.26 X10^3/uL; Monocyte% 11.8 % (0-10); NRBC Flagged by Analyzer 0 % (0-5); Neutrophil # 7.65 X10^3/uL (2.7-7.7); Neutrophil % 71.7 % (47-70); Platelet Count 160 K/mm3 (150-450); RBC Distribution Width SD 43.4 fl (35.1-43.9); Red Blood Count 4.19 M/mm3 (4.6-6.2); White Blood Count 10.7 K/mm3 (4.4-11.0)
[2021-12-28 16:13] LABS: Erythrocyte Sedimentation Rate 44 mm/hr (0-20)
[2021-12-28 16:36] LABS: ALB/GLOB Ratio 0.5 RATIO (0.9-2.4); AST(SGOT) 25 U/L (15-37); Alanine Aminotransfer ALT/SGPT 46 U/L (16-61); Albumin, Serum 2.8 g/dL (3.2-5.0); Alkaline Phosphatase 62 U/L (45-117); Anion Gap 4 (5-15); BUN 23 mg/dL (7-18); BUN/Creat Ratio 19.3 RATIO (10-20); Calcium,Total 9.8 mg/dL (8.5-10.1); Chloride 101 mmol/L (98-107); Creatinine, Serum 1.19 mg/dL (0.70-1.30); EST Glomerular Filtration Rate 62 mL/min (>60); Est Glom Filt Rate - Afr Amer 75 mL/min (>60); Estimated Creatinine Clearance 44.71 ml/min; Globulin 5.1 g/dL (2.2-4.2); Glucose 130 mg/dL (74-106); Potassium 4.2 mmol/L (3.5-5.1); Protein, Total 7.9 g/dL (6.4-8.2); Sodium Level 134 mmol/L (136-145)
[2021-12-28 17:00] VITALS: BMI 32.3
--- NOTE | 2021-12-28 18:11 | NURSING ---
Patient very chatty with visitor and in good spirits. reported that she cancelled the Dr. Rockwell appt for 3-3. Doing IS well. ON RA and 92%.
[2021-12-28 19:21] VITALS: BP 146/73; PULSE 93; RESP 18; TEMP 36.3; O2SAT 91
[2021-12-28] MEDS: Mirtazapine 15 MG Tablet PO (19:36)
[2021-12-28 20:18] VITALS: PULSE 93
[2021-12-28 21:29] LABS: Lipase 98 U/L (73-393)
[2021-12-29] VITALS (8 sets, daily range): BP systolic 125–157; BP diastolic 65–67; PULSE 70–82; RESP 15–18; TEMP 36.6–36.9; O2SAT 88–94; BMI 32.3
[2021-12-29] MEDS: 0.9% Saline Lock 10 ML Syringe IV ×4 (01:54→21:22)
[2021-12-29] MEDS: Senna/Docusate Sodium 1 Tablet 2 TABLET PO ×2 (07:40→20:09)
[2021-12-29] MEDS: amLODIPine 5 MG Tablet PO (07:40)
[2021-12-29] MEDS: Cholecalciferol (VIT D3) 25 MCG TABLET (1,000 UNITS) PO (07:41)
[2021-12-29] MEDS: Ascorbic Acid 500 MG Tablet PO ×2 (07:41→20:10)
[2021-12-29] MEDS: Metoprolol Tartrate 25 MG Tablet PO ×2 (07:42→20:08)
[2021-12-29] MEDS: Heparin Injection (Vial) 5,000 UNIT/ML VIAL 5000 UNIT SC ×2 (07:43→20:08)
[2021-12-29] MEDS: Menthol/Lanolin/Calamine/Znox 113 GM Tube 1 APPLIC TOPICAL ×2 (07:46→20:07)
--- NOTE | 2021-12-29 08:40 | CASEMGMT ---
Addendum entered by Louise Finney 12/29/21 15:41: Received follow up call from dtr, Amara [phone], in regards to quarantine. Family is thinking about sending pt straight to [facility] to eliminate double quarantine. SW validated reasoning, but cautioned about financial piece with insurance. Dtr expressed understanding and will talk with family further but would to proceed with original plan at this time. Original Note: Social Work Spoke with to confirm pt is not COVID vaccinated. She reported pt did have COVID and the monoclonal antibodies in September 2021. Educated regardless, at [facility] or [facility], pt will have to be in room quarantine for 10-14 days or until outbreak status is lifted. upset but expressed understanding. Offered COVID vaccine, but still educated pt has to be boostered to be out of quarantine in either facility. Louise Finney, MICHAEL PALMERW
--- NOTE | 2021-12-29 11:49 | PN_ITS ---
Subjective Subjective Zosyn day #4 Afebrile VSS Maintaining appropriate oxygen saturation on RA at rest while awake. It was 88% this AM when he awoke. Oral intake is good. His intake yesterday was 1879. Discussed with nursing - no problems that need addressed Reviewed the PT/OT/ST notes Medication list reviewed. All lab was personally reviewed. WBC is down to 10.7 now. Hemoglobin is stable at 14. ESR is elevated at 44. Sodium is mildly decreased at 134 and the BUN is 23 with a creatinine of 1.19. Total bilirubin remains elevated at 1.4 but this is down from admission. Other LFTs are within normal limits. Lipase was normal. He tells me that he feels less bloated today. He denies abd pain. Last BM was yesterday and he had 2. He denies cough, SOB, sore throat, loss of taste or smell, myalgias, dysuria, lightheadedness. His only real complaint today is that he feels weak. Objective Data Objective Data Vital Signs: Vital Signs Temp Pulse Resp BP Pulse Ox 97.8 F 82 18 125/65 H 92 12/29/21 08:05 12/29/21 08:05 12/29/21 08:05 12/29/21 08:05 12/29/21 10:00 Oxygen Flow Rate (L/min) 2 Oxygen Delivery Method Room Air Weight: 201 lb 8.04 oz Body Mass Index (BMI) 32.3 Intake & Output: Intake and Output for Last 24 Hours 12/27/21 12/28/21 12/29/21 23:59 23:59 23:59 Intake Total 1790 / 1790 1880 / 1880 600 / 600 Output Total 1300 / 1300 1050 / 1050 225 / 225 Balance 490 / 490 830 / 830 375 / 375 Lab / Micro Data Result Diagrams: 12/28/21 15:45 12/28/21 15:45 Labs: Laboratory Results - last 24 hr 12/28/21 15:45: WBC 10.7, RBC 4.19 L, Hgb 14.0, Hct 41.1, MCV 98.1 H, MCH 33.4 H , MCHC 34.1, RDW Std Deviation 43.4, RDW Coeff of Polo 12.0, Plt Count 160, MPV 8.6, Immature Gran % (Auto) 0.400, Neut % (Auto) 71.7 H, Lymph % (Auto) 15.1 L, [place] % (Auto) 11.8 H, Eos % (Auto) 0.7, Baso % (Auto) 0.3, Absolute Neuts (auto) 7.7, Absolute Lymphs (auto) 1.61, Nucleated RBC % 0, ESR 44 H 12/28/21 15:45: Sodium 134 L, Potassium 4.2, Chloride 101, Carbon Dioxide 29.0, Anion Gap 4 L, BUN 23 H, Creatinine 1.19, Estim Creat Clear Calc 44.71, Est GFR (MDRD) Af Amer 75, Est GFR (MDRD) Non-Af 62, BUN/Creatinine Ratio 19.3, Glucose 130 H, Calcium 9.8, Total Bilirubin 1.40 H, AST 25, ALT 46, Alkaline Phosphatase 62, Total Protein 7.9, Albumin 2.8 L, Globulin 5.1 H, Albumin/Globulin Ratio 0.5 L 12/28/21 15:45: Lipase 98 Micro: Microbiology 12/26/21 11:30 Mucosa - Nose Respiratory Panel (PCR) - Final 12/26/21 11:30 Nasal Secretion SARS-CoV-2 Antigen (Rapid) - Final Radiography Diagnostic Testing: Radiology Impression KUB X-Ray 12/28/21 13:25 IMPRESSION: Ileus Electronically Signed: Estevan Batista MD at 13:43 EST Reading Location ID and State: [address] [place] [address] , Service support , Physical Exam HEENT moist oral mucous membranes Face and Sinus: Negative for sinus tenderness Nose: Negative for nasal discharge Mouth: No thrush Throat: posterior oropharynx normal Eyes conjunctivae normal and no scleral icterus Resp normal respiratory effort and clear to auscultation bilaterally Resp Narrative: diminished in the bases Effort and Inspection: able to speak in complete sentences Cardio regular rate, regular rhythm, no rub and no gallops GI soft to palpation and non-tender GI Narrative: mild distension in the upper abd and mild tympany. No guarding, soft. No high pitched BS's Extremity no calf tenderness and no pedal edema Extremity Narrative: He has edema of the RUE due to lack of movement. 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 the Simethicone seems to be helping so will continue. 2. I do not know whay he had a fever but, he also had leukocytosis and an increased ESR so will continue the Zosyn......possibly due to abdominal process? or the ileus may just be due to an infection elsewhere. At any rate he is somewhat better today so will continue with Zosyn. 3. Continue therapy 4. BP is well controlled with increasing the Amlodipine to 5 mg and he is not lightheaded. No need for a diuretic to control BP. Charges/Coding Visit Charges Inpatient E&M: 48737 Subs Hosp L2
[2021-12-29] MEDS: Mirtazapine 15 MG Tablet PO (20:06)
--- NOTE | 2021-12-30 00:40 | NURSING ---
Pt found awake upon rounding and c/o trending pulse ox on left finger. Pt stated he couldn't sleep, he wanted the pulse ox removed, and he just wanted to go home. RN explained the purpose of the trending pulse ox and that it really needs to be attached all night. RT was notified to attach to right finger instead. Pt is restless and staff will monitor.
[2021-12-30] MEDS: 0.9% Saline Lock 10 ML Syringe IV ×4 (01:27→21:20)
[2021-12-30 07:35] VITALS: O2SAT 93
[2021-12-30 07:36] VITALS: BP 119/67; PULSE 74; RESP 16; TEMP 36.2; O2SAT 95
[2021-12-30] MEDS: Heparin Injection (Vial) 5,000 UNIT/ML VIAL 5000 UNIT SC ×2 (08:24→21:08)
[2021-12-30 08:25] VITALS: PULSE 74
[2021-12-30] MEDS: Senna/Docusate Sodium 1 Tablet 2 TABLET PO (08:25)
[2021-12-30] MEDS: Ascorbic Acid 500 MG Tablet PO ×2 (08:25→21:07)
[2021-12-30] MEDS: Metoprolol Tartrate 25 MG Tablet PO ×2 (08:25→21:07)
[2021-12-30] MEDS: amLODIPine 5 MG Tablet PO (08:25)
[2021-12-30] MEDS: Cholecalciferol (VIT D3) 25 MCG TABLET (1,000 UNITS) PO (08:25)
[2021-12-30] MEDS: Menthol/Lanolin/Calamine/Znox 113 GM Tube 1 APPLIC TOPICAL ×2 (08:26→21:08)
[2021-12-30] MEDS: Magnesium Hydroxide 30 ML UDC PO (14:07)
[2021-12-30 17:00] VITALS: BMI 32.3
[2021-12-30] MEDS: Mirtazapine 15 MG Tablet PO (19:29)
[2021-12-30 21:00] VITALS: BP 135/76; PULSE 64; RESP 18; TEMP 36.7; O2SAT 93; BMI 32.3
[2021-12-30 21:07] VITALS: BP 135/76; PULSE 64
--- NOTE | 2021-12-31 04:05 | NURSING ---
Reviewed and agree with LABELING SPECIALIST documentation and assessment charting.
[2021-12-31] MEDS: 0.9% Saline Lock 10 ML Syringe IV ×3 (05:29→21:22)
[2021-12-31 07:46] VITALS: BP 110/64; PULSE 72; RESP 16; TEMP 36.6; O2SAT 95
[2021-12-31] MEDS: Heparin Injection (Vial) 5,000 UNIT/ML VIAL 5000 UNIT SC ×2 (08:32→21:33)
[2021-12-31 08:33] VITALS: PULSE 72
[2021-12-31] MEDS: Ascorbic Acid 500 MG Tablet PO ×2 (08:33→21:35)
[2021-12-31] MEDS: Metoprolol Tartrate 25 MG Tablet PO ×2 (08:33→21:34)
[2021-12-31] MEDS: Senna/Docusate Sodium 1 Tablet 2 TABLET PO ×2 (08:33→21:35)
[2021-12-31] MEDS: amLODIPine 5 MG Tablet PO (08:33)
[2021-12-31] MEDS: Cholecalciferol (VIT D3) 25 MCG TABLET (1,000 UNITS) PO (08:34)
[2021-12-31] MEDS: Menthol/Lanolin/Calamine/Znox 113 GM Tube 1 APPLIC TOPICAL ×2 (08:45→21:35)
--- NOTE | 2021-12-31 12:03 | PN_ITS ---
Subjective Subjective Day #6 of Zosyn Afebrile VSS Maintaining appropriate oxygen saturation on RA while awake. The overnight trending pulse ox was reviewed. He had 10 desaturation events overnight. Will apply O2 anytime he is sleeping. Oral intake is improving. He has maintained good oral intake but, has not been eating as well the past couple days and told me nothing tastes good. He did tell me today that he is feeling better and he is starting to eat more. Discussed with nursing - no problems that need addressed Reviewed the PT/OT/ST notes He continues to cry spontaneously. He required only minimal assistance to go from sitting to standing today. Unfortunately to stand and pivot still requires 2 people. Medication list reviewed. Jaiden denies sore mouth, diarrhea, dysuria, CP, SOB, palpitations, lightheadedness. He denies abd pain and nausea today. He is feeling stronger. He ambulated in the parallel bars today for 5 feet x 2 with overall improved more fluid steps with the second set. He walked at the wall rail for 20 ft today with the WATER CONSERVATION SPECIALIST blocking the R knee. Still with dysarthria but the facial droop is less since the electro stimulation has been utilized. Objective Data Objective Data Vital Signs: Vital Signs Temp Pulse Resp BP Pulse Ox 97.9 F 72 16 110/64 95 12/31/21 07:46 12/31/21 08:33 12/31/21 07:46 12/31/21 07:46 12/31/21 07:46 Oxygen Flow Rate (L/min) 2 Oxygen Delivery Method Room Air Weight: 200 lb 2.876 oz Body Mass Index (BMI) 32.3 Intake & Output: Intake and Output for Last 24 Hours 12/29/21 12/30/21 12/31/21 23:59 23:59 23:59 Intake Total 1950 / 1950 1545 / 1545 310 / 310 Output Total 1425 / 1425 1400 / 1400 150 / 150 Balance 525 / 525 145 / 145 160 / 160 Lab / Micro Data Result Diagrams: 12/28/21 15:45 12/28/21 15:45 Micro: Microbiology 12/26/21 11:30 Mucosa - Nose Respiratory Panel (PCR) - Final negative 12/26/21 11:30 Nasal Secretion SARS-CoV-2 Antigen (Rapid) - Final negative Physical Exam Const Constitutional Narrative: more alert today. Happy that he ambulated 20 ft at the wall rail today. Smiling. General Appearance: cooperative Eyes conjunctivae normal and no scleral icterus Resp normal respiratory effort, normal air movement and clear to auscultation bilaterally Effort and Inspection: able to speak in complete sentences Cardio regular rate, regular rhythm and no gallops GI GI Narrative: much less distended now. Normal BS's throughout. NT, no guarding with palpation. Had a BM yesterday. No eructation Skin General Skin Exam: no breakdown Rashes: no rashes Psych Psych Narrative: Depressed with PBA. Family is not wanting to try Nudexta and there is concern over the number of meds he is taking. Assessment & Plan Assessment/Plan (1) Acute depression: (2) Pseudobulbar affect: (3) Dysphagia: (4) Cognitive dysfunction: (5) Hemorrhagic cerebrovascular accident (CVA): (6) Right hemiparesis: (7) Dysarthria: (8) FUO (fever of unknown origin): (9) Sleep-disordered breathing: PLAN: He has been afebrile and his appetite and energy level have improved. Will finish 7 days of Zosyn and then DC. We lost some ground due to the acute febrile illness but, she walked 20 ft at the wall rail today and he is improving. He seems a little less depressed today but, he is emotionally labile due to suspected pseudobulbar affect and the family has tied my hands with antidepressants and Nudexta. I explained to them that I suspect the hemorrhagic CVA was related to uncontrolled HTN and that even though he has ever taken medications in the past if we are going to decrease the risk for another stroke going forward he is going to have to take medication and if he is going to have the energy and motivation to continue with therapy the depression must be treated. He is not on a statin and he has not had a lipid panel at [facility] or at [facility]. Will order a Lipid panel in the AM along with a CBC with diff and BMP. He will have an insurance update tomorrow and I am hopeful more time will be approved. He is finally making some progress with the antidepressant and is continuing to improve with therapy. Charges/Coding Visit Charges Inpatient E&M: 22881 Subs Hosp L2
[2021-12-31 17:00] VITALS: BMI 32.3
[2021-12-31] MEDS: Mirtazapine 15 MG Tablet PO (20:01)
[2021-12-31 21:34] VITALS: BP 127/64; PULSE 74
[2021-12-31 22:00] VITALS: BP 137/77; PULSE 74; RESP 17; TEMP 36.8; O2SAT 94
[2021-12-31 23:09] VITALS: BMI 32.3
[2022-01-01 05:40] LABS: Absolute Lymphocyte Count 1.63 X10^3/uL (0.83-4.51); Absolute Neutrophil Count 3.2 X10^3/uL (2.0-7.7); Basophil# 0.03 X10^3/uL; Basophil% 0.5 % (0-1); Eosinophil# 0.44 X10^3/uL; Eosinophils% 7.4 % (0-5); Hematocrit 39.1 % (40-54); Hemoglobin 13.2 g/dL (13.0-16.5); Lymphocyte # 1.63 X10^3/ul (0.83-4.51); Lymphocyte % 27.4 % (19-41); Mean Corp Hgb Conc 33.8 g/dL (32-36); Mean Corpuscular Hgb 33.8 pg (27.0-32.0); Mean Platelet Vol. 8.3 fl (6.2-12.0); Monocyte# 0.61 X10^3/uL; Monocyte% 10.3 % (0-10); NRBC Flagged by Analyzer 0 % (0-5); Neutrophil # 3.21 X10^3/uL (2.7-7.7); Neutrophil % 54.1 % (47-70); Platelet Count 193 K/mm3 (150-450); RBC Distribution Width CV 11.9 % (11.6-14.6); RBC Distribution Width SD 44.3 fl (35.1-43.9); Red Blood Count 3.91 M/mm3 (4.6-6.2); White Blood Count 5.9 K/mm3 (4.4-11.0)
[2022-01-01 06:06] LABS: Anion Gap 2 (5-15); BUN 17 mg/dL (7-18); Calcium,Total 9.2 mg/dL (8.5-10.1); Chloride 105 mmol/L (98-107); Cholesterol 123 mg/dL (200); EST Glomerular Filtration Rate 86 mL/min (>60); Est Glom Filt Rate - Afr Amer 104 mL/min (>60); Estimated Creatinine Clearance 59.11 ml/min; Glucose 107 mg/dL (74-106); High Density Lipoprotein 28 mg/dL; Potassium 4.1 mmol/L (3.5-5.1); Sodium Level 137 mmol/L (136-145); Triglycerides 100 mg/dL; Very Low Density Lipoprotein 20 mg/dL (5-40)
[2022-01-01] MEDS: 0.9% Saline Lock 10 ML Syringe IV ×4 (06:37→22:03)
[2022-01-01 07:51] VITALS: BP 120/68; PULSE 70; RESP 18; TEMP 36.6; O2SAT 96
[2022-01-01] MEDS: Senna/Docusate Sodium 1 Tablet 2 TABLET PO ×2 (09:24→22:02)
[2022-01-01 09:25] VITALS: BP 120/68; PULSE 70
[2022-01-01] MEDS: amLODIPine 5 MG Tablet PO (09:25)
[2022-01-01] MEDS: Cholecalciferol (VIT D3) 25 MCG TABLET (1,000 UNITS) PO (09:25)
[2022-01-01] MEDS: Ascorbic Acid 500 MG Tablet PO ×2 (09:25→22:02)
[2022-01-01] MEDS: Metoprolol Tartrate 25 MG Tablet PO ×2 (09:25→22:02)
[2022-01-01 09:26] VITALS: O2SAT 93
[2022-01-01] MEDS: Heparin Injection (Vial) 5,000 UNIT/ML VIAL 5000 UNIT SC ×2 (09:26→22:02)
[2022-01-01] MEDS: Menthol/Lanolin/Calamine/Znox 113 GM Tube 1 APPLIC TOPICAL ×2 (10:43→22:03)
[2022-01-01 12:27] VITALS: BMI 32.3
--- NOTE | 2022-01-01 12:37 | CASEMGMT ---
Social Work Insurance approved more time, NRD 01/07. Updated and [facility]. Louise Finney, ENGINE MECHANIC AUDIO PRODUCTION INSTRUCTOR
--- NOTE | 2022-01-01 15:32 | PN_ITS ---
Subjective Subjective Afebrile VSS - The BP is well controlled. Maintaining appropriate oxygen saturation on RA while awake. At night he wears O2 while sleeping. Oral intake is good. Mucous membranes are moist. Discussed with nursing - no problems that need addressed Reviewed the PT/OT/ST notes - he is able to bend his RUE at the elbow now. He has a better smoked meat preparer of the R hand.....still weak but improving. Medication list reviewed. He still is c/o feeling bloated. He is used to having a BM every day and is not happy that he is only going every 2-3rd day. Denies eructation. No abd pain. I think the ileus and the distension is because he is not able to move much. He denies cough, SOB, CP, calf pain, dysuria, lightheadedness, sore throat, vertigo. He is still very emotionally labile and cries very easily.......he cried today when he showed me that he could bend his RUE at the elbow now and make a weak hand smoked meat preparer. He is talkative and he makes eye contact with me today. All lab was personally reviewed. The white blood cell count is now down to 5.9 from 11.4 on 12/26/2021. Hemoglobin is 13.2 and the platelets are within normal limits. Neutrophils are down to 54%. Eosinophils are 7.4% and this is possibly secondary to Zosyn. He denies any pruritus and he has no rash. The sodium is now normal. The BUN is 17 and the creatinine is down to 0.9 from 1.19 on 12/28/2021. Triglycerides are within normal limits at 100. The LDL is 75 and the HDL is low at 28. He is not on a statin........he is almost at goal......will discuss this with family on Tuesday at the TEAM meeting. The stroke was hemorrhagic and not ischemic. Objective Data Objective Data Vital Signs: Vital Signs Temp Pulse Resp BP Pulse Ox 97.8 F 70 18 120/68 93 01/01/22 07:51 01/01/22 09:25 01/01/22 07:51 01/01/22 09:25 01/01/22 09:26 Oxygen Flow Rate (L/min) 2 Oxygen Delivery Method Room Air Weight: 200 lb 2.876 oz Body Mass Index (BMI) 32.3 Intake & Output: Intake and Output for Last 24 Hours 12/30/21 12/31/21 01/01/22 23:59 23:59 23:59 Intake Total 1545 / 1545 960 / 960 320 / 320 Output Total 1400 / 1400 750 / 750 650 / 650 Balance 145 / 145 210 / 210 -330 / -330 Lab / Micro Data Result Diagrams: 01/01/22 05:30 01/01/22 05:30 Labs: Laboratory Results - last 24 hr 01/01/22 05:30: WBC 5.9, RBC 3.91 L, Hgb 13.2, Hct 39.1 L, MCV 100.0 H, MCH 33.8 H, MCHC 33.8, RDW Std Deviation 44.3 H, RDW Coeff of Polo 11.9, Plt Count 193, MPV 8.3, Immature Gran % (Auto) 0.300, Neut % (Auto) 54.1, Lymph % (Auto) 27.4, [place] % (Auto) 10.3 H, Eos % (Auto) 7.4 H, Baso % (Auto) 0.5, Absolute Neuts (auto) 3.2, Absolute Lymphs (auto) 1.63, Nucleated RBC % 0 01/01/22 05:30: Sodium 137, Potassium 4.1, Chloride 105, Carbon Dioxide 30.0, Anion Gap 2 L, BUN 17, Creatinine 0.90, Estim Creat Clear Calc 59.11, Est GFR (MDRD) Af Amer 104, Est GFR (MDRD) Non-Af 86, BUN/Creatinine Ratio 19.0, Glucose 107 H, Calcium 9.2, Triglycerides 100, Cholesterol 123, LDL Cholesterol 75, VLDL Cholesterol 20, HDL Cholesterol 28 L Micro: Microbiology 12/26/21 11:30 Mucosa - Nose Respiratory Panel (PCR) - Final 12/26/21 11:30 Nasal Secretion SARS-CoV-2 Antigen (Rapid) - Final Physical Exam Const alert and no apparent distress Constitutional Narrative: sitting in the recliner at the bedside General Appearance: cooperative HEENT normocephalic and moist oral mucous membranes Eyes PERRL and EOMs intact bilaterally Resp clear to auscultation bilaterally Resp Narrative: diminished in the bases. Not tachypneic, able to speak in full sentences. Cardio regular rate, regular rhythm, no murmurs and no gallops GI GI Narrative: Mildly distended and tympanic in the upper quadrants. Soft, no guarding with palpation and normal BS's. Extremity no calf tenderness General Extremity: Negative for clubbing, cyanosis or edema Skin General Skin Exam: no breakdown and dry skin Rashes: No rashes noted Neuro Neuro Narrative: Still with R facial droop but, enunciates well and I can understand what he is telling me without having to make him repeat it. Assessment & Plan Assessment/Plan (1) Sleep-disordered breathing: (2) Right hemiparesis: (3) Acute depression: (4) Pseudobulbar affect: (5) Hemorrhagic cerebrovascular accident (CVA): PLAN: 1. continue the current drug regimen. 2. Discuss a statin at the next TEAM meeting At this point since he had a hemorrhagic stroke and not an ischemic stroke I would not add a statin since the LDL is only 75. 3. Continue therapy. 4. DC Zosyn after the last dose today. 5. Increase the Remeron to 30 mg and continue to monitor for emotionally lability. Charges/Coding Visit Charges Inpatient E&M: 01278 Subs Hosp L2
[2022-01-01 19:26] VITALS: BP 112/66; PULSE 78; RESP 17; TEMP 36.3; O2SAT 93
[2022-01-01] MEDS: Mirtazapine 30 MG Tablet PO (19:34)
[2022-01-01 22:02] VITALS: BP 112/66; PULSE 78
[2022-01-02 07:44] VITALS: BP 128/74; PULSE 68; RESP 16; TEMP 36.7; O2SAT 95
[2022-01-02 08:25] VITALS: BP 128/74; PULSE 68
[2022-01-02] MEDS: Metoprolol Tartrate 25 MG Tablet PO ×2 (08:25→20:20)
[2022-01-02] MEDS: amLODIPine 5 MG Tablet PO (08:25)
[2022-01-02] MEDS: Ascorbic Acid 500 MG Tablet PO ×2 (08:25→20:21)
[2022-01-02] MEDS: Senna/Docusate Sodium 1 Tablet 2 TABLET PO ×2 (08:26→20:20)
[2022-01-02] MEDS: Heparin Injection (Vial) 5,000 UNIT/ML VIAL 5000 UNIT SC ×2 (08:26→20:20)
[2022-01-02] MEDS: Cholecalciferol (VIT D3) 25 MCG TABLET (1,000 UNITS) PO (08:26)
[2022-01-02] MEDS: Menthol/Lanolin/Calamine/Znox 113 GM Tube 1 APPLIC TOPICAL ×2 (08:32→20:21)
[2022-01-02 13:42] VITALS: BMI 32.3
[2022-01-02] MEDS: Mirtazapine 30 MG Tablet PO (18:42)
[2022-01-02 19:23] VITALS: BP 143/72; PULSE 74; RESP 18; TEMP 36.6; O2SAT 93
[2022-01-02] MEDS: 0.9% Saline Lock 10 ML Syringe IV (20:11)
[2022-01-02 20:20] VITALS: PULSE 80
[2022-01-02 20:31] VITALS: BMI 32.3
[2022-01-02 22:00] VITALS: PULSE 74; RESP 16; O2SAT 93
[2022-01-03] MEDS: Magnesium Hydroxide 30 ML UDC PO (05:43)
[2022-01-03] MEDS: Heparin Injection (Vial) 5,000 UNIT/ML VIAL 5000 UNIT SC ×2 (08:03→21:00)
[2022-01-03 08:04] VITALS: PULSE 68
[2022-01-03] MEDS: amLODIPine 5 MG Tablet PO (08:04)
[2022-01-03] MEDS: Metoprolol Tartrate 25 MG Tablet PO ×2 (08:04→21:00)
[2022-01-03] MEDS: Senna/Docusate Sodium 1 Tablet 2 TABLET PO ×2 (08:04→21:01)
[2022-01-03] MEDS: Ascorbic Acid 500 MG Tablet PO ×2 (08:05→21:01)
[2022-01-03] MEDS: Menthol/Lanolin/Calamine/Znox 113 GM Tube 1 APPLIC TOPICAL ×2 (08:05→21:03)
[2022-01-03] MEDS: Cholecalciferol (VIT D3) 25 MCG TABLET (1,000 UNITS) PO (08:05)
[2022-01-03 08:06] VITALS: BP 130/71; PULSE 68; RESP 16; TEMP 37.3; O2SAT 92
[2022-01-03 16:10] VITALS: BMI 32.3
[2022-01-03 19:19] VITALS: BP 124/65; PULSE 77; RESP 18; TEMP 36.5; O2SAT 93
[2022-01-03] MEDS: Mirtazapine 30 MG Tablet PO (19:30)
[2022-01-03 21:00] VITALS: PULSE 72
[2022-01-03 21:10] VITALS: BMI 32.3
[2022-01-03 22:00] VITALS: PULSE 77; RESP 17; O2SAT 93
[2022-01-04 07:16] VITALS: BP 140/69; PULSE 81; RESP 16; TEMP 36.7; O2SAT 98
[2022-01-04 07:25] VITALS: O2SAT 92
[2022-01-04] MEDS: Ascorbic Acid 500 MG Tablet PO ×2 (07:52→20:47)
[2022-01-04 07:53] VITALS: PULSE 81
[2022-01-04] MEDS: Metoprolol Tartrate 25 MG Tablet PO ×2 (07:53→20:46)
[2022-01-04] MEDS: amLODIPine 5 MG Tablet PO (07:53)
[2022-01-04] MEDS: Heparin Injection (Vial) 5,000 UNIT/ML VIAL 5000 UNIT SC ×2 (07:53→20:46)
[2022-01-04] MEDS: Senna/Docusate Sodium 1 Tablet 2 TABLET PO ×2 (07:54→20:46)
[2022-01-04] MEDS: Cholecalciferol (VIT D3) 25 MCG TABLET (1,000 UNITS) PO (07:54)
[2022-01-04] MEDS: Menthol/Lanolin/Calamine/Znox 113 GM Tube 1 APPLIC TOPICAL ×2 (08:00→20:45)
--- NOTE | 2022-01-04 10:41 | PN_ITS ---
Subjective Subjective Jaiden was seen on team rounds today. Family was resent in the room. Afebrile VSS-blood pressure is adequately controlled. Maintaining appropriate oxygen saturation on RA while awake. He is to be on O2 at night ....he had 1- desaturation events on the overnight trending pulse ox. Oral intake is good Discussed with nursing - Appetite is poor and he is not eating well. He continues to c/o bloating and constipation. Reviewed the PT/OT/ST notes Medication list reviewed. He is tolerating the increase in the Remeron to 30 mg without daytime somnolence. He is sleeping well but, I think the decreased taste and appetite and the constipation and bloating may be due to Remeron. He is still very emotionally labile and cries very easily. He denies CP, SOB, dysuria, lightheadedness, nausea/vomiting, myalgias, cephalgia. Objective Data Objective Data Vital Signs: Vital Signs Temp Pulse Resp BP Pulse Ox 98.0 F 81 16 140/69 H 92 01/04/22 07:16 01/04/22 07:53 01/04/22 07:16 01/04/22 07:16 01/04/22 07:25 Oxygen Flow Rate (L/min) 2 Oxygen Delivery Method Room Air Weight: 200 lb 2.876 oz Body Mass Index (BMI) 32.3 Intake & Output: Intake and Output for Last 24 Hours 01/02/22 01/03/22 01/04/22 23:59 23:59 23:59 Intake Total 2153.25 / 2153.25 1480 / 1480 300 / 300 Output Total 1650 / 1650 1650 / 1650 300 / 300 Balance 503.25 / 503.25 -170 / -170 0 / 0 Lab / Micro Data Result Diagrams: 01/01/22 05:30 01/01/22 05:30 Micro: Microbiology 12/26/21 11:30 Mucosa - Nose Respiratory Panel (PCR) - Final 12/26/21 11:30 Nasal Secretion SARS-CoV-2 Antigen (Rapid) - Final Physical Exam Const alert and oriented x3 Constitutional Narrative: Tearful. General Appearance: cooperative Eyes PERRL, EOMs intact bilaterally, conjunctivae normal and no scleral icterus Resp normal respiratory effort, normal air movement, no retractions, no use of accessory muscles and clear to auscultation bilaterally Effort and Inspection: able to speak in complete sentences Cardio regular rate and no gallops GI GI Narrative: Still mildly distended, donya in the upper quadrants. He is also tympanic. No guarding with palpation and the abd is soft. BS's are present. No high pitched BS's. Denies eructation. Extremity no calf tenderness and no pedal edema Skin General Skin Exam: no breakdown Rashes: no rashes Psych Psych Narrative: depressed mood Appearance: grossly normal Assessment & Plan Assessment/Plan (1) Hemorrhagic cerebrovascular accident (CVA): PLAN: 1. Hold the Remeron dose tonight and tomorrow night give 7.5 mg nightly. We did not have problems with bloating prior to starting to increase the dose and he did sleep better and have an increase in appetite with the 7.5 mg. 2. I feel like the biggest reason he is crying is not so much depression but, PBA. I recommend that at some point they consider a trail of Nudexta to see if this improves because it is upsetting to him. The bloating and the distension and the tympany did not improve with discontinuing the Miralax and the bloating and abd distension has not changed with the addition of the Simethicone so will change the Simethicone to PRN. 3. Continue therapy. Has not progressed much recently. Transfer to [facility] home is likely in the near future. Charges/Coding Visit Charges Inpatient E&M: 01268 Subs Hosp L2
[2022-01-04 13:19] VITALS: BMI 32.3
--- NOTE | 2022-01-04 13:40 | CASEMGMT ---
Social Work IDT met with patient, and daughters for care plan meeting. Discussed patient's progress in PT/OT/ST and nursing. Pt making progress. Explained [facility] NRD 01/07 and continued stay is not guaranteed. Cautioned insurance reviewer expressed pt will most likely not be approved for TCU. Family wants pt to go directly to [facility] so he does not have to restart his quarantine time d/t to not having COVID vaccine. Updated TCU and [facility] Admissions. SW to continue to follow. Louise Finney, CASHIER WRAPPER AIRCRAFT SERVICER
[2022-01-04 19:21] VITALS: BP 140/77; PULSE 79; RESP 17; TEMP 36.7; O2SAT 93
[2022-01-04 20:46] VITALS: PULSE 73
[2022-01-04 20:53] VITALS: BMI 32.3
[2022-01-04 22:00] VITALS: PULSE 79; RESP 16; O2SAT 94
[2022-01-05 07:24] VITALS: BP 124/68; PULSE 88; RESP 16; TEMP 36.6; O2SAT 93
[2022-01-05 07:30] VITALS: O2SAT 93
[2022-01-05] MEDS: Menthol/Lanolin/Calamine/Znox 113 GM Tube 1 APPLIC TOPICAL ×2 (07:38→21:05)
[2022-01-05 07:40] VITALS: PULSE 88
[2022-01-05] MEDS: Ascorbic Acid 500 MG Tablet PO ×2 (07:40→21:06)
[2022-01-05] MEDS: Metoprolol Tartrate 25 MG Tablet PO ×2 (07:40→21:06)
[2022-01-05] MEDS: Senna/Docusate Sodium 1 Tablet 2 TABLET PO ×2 (07:40→21:06)
[2022-01-05] MEDS: Heparin Injection (Vial) 5,000 UNIT/ML VIAL 5000 UNIT SC ×2 (07:40→21:05)
[2022-01-05] MEDS: amLODIPine 5 MG Tablet PO (07:40)
[2022-01-05] MEDS: Cholecalciferol (VIT D3) 25 MCG TABLET (1,000 UNITS) PO (07:41)
--- NOTE | 2022-01-05 13:01 | PCM.PN.BLA ---
Progress Note Afebrile Vital signs are stable Maintaining appropriate oxygen saturation on room air while awake. He maintained 93% on a 2 L nasal cannula last night while sleeping. Jaiden tells me that he had a BM today without help. He did not have to strain. He was able to taste the sugar this morning with breakfast. He denies nausea and has not vomited. No belching and no significant flatulence. He is tearful again today. Lungs are CTA he is not lightheaded when he is standing. He still has a R facial droop. Dysarthria is less and I can easily understand him. Impressions 1. Adverse reaction to higher doses of Remeron with dysgeusia, abd distension, loss of appetite and constipation. The dose was decreased to 7.5 mg at HS and it was held last night. Will restart at the lower dose tonight. 2. Depression + pseudobulbar affect Continue therapy but suspect insurance will deny after 3/1o since he is not really progressing enough. Visit Charges Inpatient E&M: 22110 Subs Hosp L1
--- NOTE | 2022-01-05 16:03 | CHAPLAIN ---
Type of Pastoral Visit ___ Initial Visit _x__ Follow-up Visit ___ On-call Visit ___ General Patient Visit ___ Spiritual Assessment ___ Family Conference ___ Bereavement ___ Rapid Response ___ Code Blue ___ Other (describe below) Pastoral Care Referral From _x__ Patient ___ Family ___ Nurse ___ Physician ___ Pie Filling Mixer ___ Support Staff ___ Other (describe below) Sacrament/Intervention _x__ Active listening ___ Anointing ___ Adventist ___ Bereavement ___ Communion _x__ Ashely exploration ___ _x__ Life review _x__ Prayer ___ Reconciliation ___ Sacrament of Sick _x__ Supportive presence ___ Wedding ___ Other (describe below) Pastoral Comments patient welcomed visit of spiritual care; pt admits being tired from exercises but also shows what he can do now with his arm (some upper muscle movement); pt states he wants to be able to use arm and get around by himself so he can return home; pt has things to which he acknowledges thanks and as blessings; pt has life long connection to [facility]; pt has family support and many have been able to visit him
[2022-01-05 16:17] VITALS: BMI 32.3
[2022-01-05 19:11] VITALS: BP 132/69; PULSE 84; RESP 17; TEMP 36.8; O2SAT 93
[2022-01-05] MEDS: Mirtazapine 15 MG Tablet 7.5 MG PO (20:00)
[2022-01-05 20:51] VITALS: BMI 32.3
[2022-01-05 21:06] VITALS: PULSE 86
[2022-01-05 22:00] VITALS: PULSE 86; RESP 16; O2SAT 94
[2022-01-06 08:09] VITALS: BP 127/66; PULSE 73; RESP 16; TEMP 36.2; O2SAT 94
[2022-01-06 08:22] VITALS: PULSE 73
[2022-01-06] MEDS: Metoprolol Tartrate 25 MG Tablet PO ×2 (08:22→20:20)
[2022-01-06] MEDS: Heparin Injection (Vial) 5,000 UNIT/ML VIAL 5000 UNIT SC ×2 (08:22→20:21)
[2022-01-06] MEDS: Cholecalciferol (VIT D3) 25 MCG TABLET (1,000 UNITS) PO (08:23)
[2022-01-06] MEDS: Senna/Docusate Sodium 1 Tablet 2 TABLET PO ×2 (08:23→20:20)
[2022-01-06] MEDS: Ascorbic Acid 500 MG Tablet PO ×2 (08:23→20:20)
[2022-01-06] MEDS: amLODIPine 5 MG Tablet PO (08:23)
[2022-01-06] MEDS: Menthol/Lanolin/Calamine/Znox 113 GM Tube 1 APPLIC TOPICAL ×2 (08:33→20:21)
[2022-01-06 14:46] VITALS: BMI 32.3
--- NOTE | 2022-01-06 16:17 | CASEMGMT ---
Social Work Dtr, Amara, contacted this worker with more questions about TCU and [facility]. Dtr stated toured [facility] and was unsure; they prefer TCU again as the rate is all inclusive and will get about 2hrs of therapy/day. Dtr did not want to take [facility] off the list, but would prefer TCU if they have a bed. Offered to confirm with both SNFs. Contacted [facility] - they can still accept. Spoke with TCU - they will put him on the list, but unsure about bed availability. Updated dtr. Dtr appreciative. SW to continue to follow. Louise Finney, UNCRATER ARTS ADMINISTRATOR
[2022-01-06] MEDS: Mirtazapine 15 MG Tablet 7.5 MG PO (18:41)
[2022-01-06 19:08] VITALS: BP 143/82; PULSE 89; RESP 18; TEMP 36.7; O2SAT 96
[2022-01-06 20:20] VITALS: BP 143/82; PULSE 89
[2022-01-07 07:30] VITALS: BP 127/68; PULSE 86; RESP 12; TEMP 36.7; O2SAT 94
[2022-01-07 07:34] VITALS: O2SAT 92
[2022-01-07 09:01] VITALS: PULSE 86
[2022-01-07] MEDS: Metoprolol Tartrate 25 MG Tablet PO ×2 (09:01→20:59)
[2022-01-07] MEDS: Cholecalciferol (VIT D3) 25 MCG TABLET (1,000 UNITS) PO (09:01)
[2022-01-07] MEDS: Senna/Docusate Sodium 1 Tablet 2 TABLET PO ×2 (09:02→20:59)
[2022-01-07] MEDS: Heparin Injection (Vial) 5,000 UNIT/ML VIAL 5000 UNIT SC ×2 (09:02→21:00)
[2022-01-07] MEDS: amLODIPine 5 MG Tablet PO (09:02)
[2022-01-07] MEDS: Ascorbic Acid 500 MG Tablet PO ×2 (09:04→20:57)
[2022-01-07] MEDS: Menthol/Lanolin/Calamine/Znox 113 GM Tube 1 APPLIC TOPICAL ×2 (09:06→21:00)
--- NOTE | 2022-01-07 10:02 | PCM.PROGNOTE ---
Subjective Subjective Afebrile VSS-blood pressure is well controlled. Heart rate is within normal limits. Maintaining appropriate oxygen saturation on RA while awake. Because of the desaturation events on his overnight trending pulse ox he is on 2 L of nasal O2 anytime he is sleeping. Oral intake is fair Last bowel movement was 01/06/2022. The stool is soft and he does not have to strain. Discussed with nursing - no problems that need addressed Reviewed the PT/OT/ST notes Medication list reviewed. He continues to complain of not having an appetite. He denies abdominal pain, bloating, eructation and flatulence. He denies dysuria, lightheadedness, CP, SOB, nausea, vomiting, diarrhea, cough. He is still very emotionally labile and I think that the crying has increased since the Remeron was decreased. Alert an oriented X 3 Lungs- CTA after a few deep breaths. Lying flat in bed with no resp distress H- RRR, no ectopy and no gallop abd - soft, NT, ND, no guarding with palpation, normal BS's no peripheral edema no rashes Impressions 1. post stroke debility - able to move the R thumb today and he is progressing but, progress is slow. 2. Depression + PBA. Had bloating, dysgeusia, constipation and abd distention when Remeron was increased and he has increased crying now that the Remeron has been decreased. I discussed starting another antidepressant with Jaiden and Aide and they are in agreement. I am going to discontinue the Remeron and start Sertraline 25 mg in the AM. 3. Since we are going to DC the Remeron I will add Dronabinol 2.5 mg at 2100 nightly to help with sleep and to stimulate appetite. 4. continue therapy. Plan on TCU if possible and if not [facility] at [place] for more therapy. He is not on a statin because the family did not want to many medications......I am OK with this......the LDL is only 75 on no medications. Maybe try 5 mg of Crestor in the future once he is stable on the current medications. Objective Data Objective Data Vital Signs: Vital Signs Temp Pulse Resp BP Pulse Ox 98.0 F 86 12 127/68 H 92 01/07/22 07:30 01/07/22 09:01 01/07/22 07:30 01/07/22 07:30 01/07/22 07:34 Oxygen Flow Rate (L/min) 2 Oxygen Delivery Method Room Air Weight: 199 lb 11.821 oz Body Mass Index (BMI) 32.3 Intake & Output: Intake and Output for Last 24 Hours 01/05/22 01/06/22 01/07/22 23:59 23:59 23:59 Intake Total 1265 / 1265 1280 / 1280 460 / 460 Output Total 1250 / 1250 1350 / 1350 200 / 200 Balance 15 -70 / -70 260 / 260 Lab / Micro Data Result Diagrams: 01/01/22 05:30 01/01/22 05:30 Micro: Microbiology 12/26/21 11:30 Mucosa - Nose Respiratory Panel (PCR) - Final 12/26/21 11:30 Nasal Secretion SARS-CoV-2 Antigen (Rapid) - Final Charges/Coding Visit Charges Inpatient E&M: 26673 Subs Hosp L2
--- NOTE | 2022-01-07 16:03 | CASEMGMT ---
Addendum entered by Louise Finney 01/08/22 15:10: Contacted to get final decision. and pt are choosing [facility] private pay, but would still like TCU to submit precert. Updated [facility] and TCU admissions. Will Team Tuesday. DC 01/12. Original Note: [employer] Insurance approved additional time for DC planning with DC 01/12. Updated dtr and requested final DC decision preferably Tuesday, but definitely on Thursday 01/11. Dtr will discuss with mother. Explained TCU can still submit for precert, but have the decision made assuming insurance denies TCU. Dtr expressed understanding. SW to continue to follow. Louise Finney, VIRTUAL OFFICE ASSISTANT COMMUNITY CENTER DIRECTOR
[2022-01-07 16:29] VITALS: BMI 32.3
[2022-01-07 19:37] VITALS: BP 118/69; PULSE 82; RESP 18; TEMP 36.6; O2SAT 93
[2022-01-07 20:59] VITALS: BP 118/69; PULSE 82
[2022-01-07] MEDS: Dronabinol 2.5 MG Capsule PO (21:00)
[2022-01-08] MEDS: Menthol/Lanolin/Calamine/Znox 113 GM Tube 1 APPLIC TOPICAL ×2 (05:25→20:27)
[2022-01-08] MEDS: amLODIPine 5 MG Tablet PO (08:13)
[2022-01-08] MEDS: Heparin Injection (Vial) 5,000 UNIT/ML VIAL 5000 UNIT SC ×2 (08:13→20:23)
[2022-01-08] MEDS: Ascorbic Acid 500 MG Tablet PO ×2 (08:14→20:28)
[2022-01-08] MEDS: Cholecalciferol (VIT D3) 25 MCG TABLET (1,000 UNITS) PO (08:14)
[2022-01-08] MEDS: Sertraline 50 MG Tablet 25 MG PO (08:14)
[2022-01-08 08:17] VITALS: PULSE 70
[2022-01-08] MEDS: Metoprolol Tartrate 25 MG Tablet PO ×2 (08:17→20:28)
[2022-01-08 08:26] VITALS: BP 117/70; PULSE 74; RESP 20; TEMP 36.9; O2SAT 94
[2022-01-08 14:27] VITALS: BMI 32.3
[2022-01-08 20:00] VITALS: BP 140/76; PULSE 88; RESP 18; TEMP 36.7; O2SAT 92; BMI 32.3
[2022-01-08 20:28] VITALS: BP 140/76; PULSE 88
[2022-01-08] MEDS: Dronabinol 2.5 MG Capsule PO (20:28)
[2022-01-08] MEDS: Senna/Docusate Sodium 1 Tablet 2 TABLET PO (20:29)
--- NOTE | 2022-01-08 23:28 | NURSING ---
Reviewed HARNESS INSTALLER and agree with HARNESS INSTALLER assessment.
[2022-01-09] MEDS: Menthol/Lanolin/Calamine/Znox 113 GM Tube 1 APPLIC TOPICAL ×2 (06:20→20:57)
[2022-01-09 07:58] VITALS: PULSE 77
[2022-01-09] MEDS: Metoprolol Tartrate 25 MG Tablet PO ×2 (07:58→20:56)
[2022-01-09] MEDS: Heparin Injection (Vial) 5,000 UNIT/ML VIAL 5000 UNIT SC ×2 (07:58→20:57)
[2022-01-09] MEDS: Sertraline 50 MG Tablet 25 MG PO (08:00)
[2022-01-09] MEDS: Senna/Docusate Sodium 1 Tablet 2 TABLET PO ×2 (08:01→20:56)
[2022-01-09] MEDS: amLODIPine 5 MG Tablet PO (08:01)
[2022-01-09] MEDS: Ascorbic Acid 500 MG Tablet PO ×2 (08:01→20:56)
[2022-01-09] MEDS: Cholecalciferol (VIT D3) 25 MCG TABLET (1,000 UNITS) PO (08:01)
[2022-01-09 08:16] VITALS: BP 127/67; PULSE 77; RESP 16; TEMP 36.9; O2SAT 93
[2022-01-09 08:30] VITALS: O2SAT 93
[2022-01-09 16:06] VITALS: BMI 32.3
[2022-01-09 20:40] VITALS: BP 127/76; PULSE 78; RESP 16; TEMP 36.9; O2SAT 91; BMI 32.3
[2022-01-09 20:56] VITALS: BP 127/76; PULSE 78
[2022-01-09] MEDS: Dronabinol 2.5 MG Capsule PO (20:56)
[2022-01-10] MEDS: Menthol/Lanolin/Calamine/Znox 113 GM Tube 1 APPLIC TOPICAL ×2 (06:33→21:03)
[2022-01-10] MEDS: amLODIPine 5 MG Tablet PO (07:59)
[2022-01-10] MEDS: Sertraline 50 MG Tablet 25 MG PO (07:59)
[2022-01-10 08:00] VITALS: PULSE 75
[2022-01-10] MEDS: Heparin Injection (Vial) 5,000 UNIT/ML VIAL 5000 UNIT SC ×2 (08:00→21:03)
[2022-01-10] MEDS: Ascorbic Acid 500 MG Tablet PO ×2 (08:00→21:03)
[2022-01-10] MEDS: Metoprolol Tartrate 25 MG Tablet PO ×2 (08:00→21:02)
[2022-01-10] MEDS: Cholecalciferol (VIT D3) 25 MCG TABLET (1,000 UNITS) PO (08:01)
[2022-01-10 10:00] VITALS: BP 109/71; PULSE 74; RESP 18; TEMP 36.7; O2SAT 92
[2022-01-10 15:10] VITALS: BMI 32.3
[2022-01-10 21:00] VITALS: BP 135/63; PULSE 72; RESP 18; TEMP 36.7; O2SAT 92; BMI 32.3
[2022-01-10 21:02] VITALS: BP 135/63; PULSE 72
[2022-01-10] MEDS: Senna/Docusate Sodium 1 Tablet 2 TABLET PO (21:02)
[2022-01-10] MEDS: Dronabinol 2.5 MG Capsule PO (21:03)
--- NOTE | 2022-01-11 02:11 | NURSING ---
Reviewed and agree with FINE HAIRER assessment.
[2022-01-11] MEDS: Menthol/Lanolin/Calamine/Znox 113 GM Tube 1 APPLIC TOPICAL ×2 (06:44→22:01)
[2022-01-11 07:42] VITALS: BP 140/70; PULSE 66; RESP 16; TEMP 36.2; O2SAT 93
[2022-01-11 08:18] VITALS: PULSE 66
[2022-01-11] MEDS: Heparin Injection (Vial) 5,000 UNIT/ML VIAL 5000 UNIT SC ×2 (08:18→22:00)
[2022-01-11] MEDS: Senna/Docusate Sodium 1 Tablet 2 TABLET PO ×2 (08:18→22:00)
[2022-01-11] MEDS: Metoprolol Tartrate 25 MG Tablet PO ×2 (08:18→22:00)
[2022-01-11] MEDS: amLODIPine 5 MG Tablet PO (08:18)
[2022-01-11] MEDS: Sertraline 50 MG Tablet 25 MG PO (08:19)
[2022-01-11] MEDS: Cholecalciferol (VIT D3) 25 MCG TABLET (1,000 UNITS) PO (08:19)
[2022-01-11] MEDS: Ascorbic Acid 500 MG Tablet PO ×2 (08:19→22:00)
--- NOTE | 2022-01-11 10:55 | PCM.PROGNOTE ---
Subjective Subjective Afebrile VSS-blood pressure is well controlled. Heart rate is within normal limits. Maintaining appropriate oxygen saturation on RA-92 to 93%. Oral intake is erratic Weight is down about 13 1/2 pounds since admission. The academic affairs manager has been monitoring his intake closely and he has been eating 75% or more of medium sized meals. Today he ate less than 50% of his breakfast but then felt better after a BM. Discussed with nursing - no problems that need addressed Reviewed the PT/OT/ST notes Medication list reviewed. Has been tolerating the Dronabinol at HS without any adverse effects. He did not cry while talking with me today and this is the first time. He was upbeat and he is very happy with his progress. He denies any abdominal pain and has not c/o bloating. No N/V. He tells me he had a BM this morning and he is happy about that........he perseverates about having a BM daily. He is having regular BM's and has not had MOM since 01/03/22. He is on Senna/docusate 2 tabs BID. Objective Data Objective Data Vital Signs: Vital Signs Temp Pulse Resp BP Pulse Ox 97.2 F L 66 16 140/70 H 93 01/11/22 07:42 01/11/22 08:18 01/11/22 07:42 01/11/22 07:42 01/11/22 07:42 Oxygen Flow Rate (L/min) 2 Oxygen Delivery Method Room Air Weight: 199 lb 11.821 oz Body Mass Index (BMI) 32.3 Intake & Output: Intake and Output for Last 24 Hours 01/09/22 01/10/22 01/11/22 22:59 23:59 23:59 Intake Total 390 / 390 Output Total 525 / 525 Balance -135 / -135 Lab / Micro Data Result Diagrams: 01/01/22 05:30 01/01/22 05:30 Micro: Microbiology 12/26/21 11:30 Mucosa - Nose Respiratory Panel (PCR) - Final 12/26/21 11:30 Nasal Secretion SARS-CoV-2 Antigen (Rapid) - Final Physical Exam Const alert, oriented x3 and no apparent distress General Appearance: cooperative Resp clear to auscultation bilaterally Cardio regular rate, regular rhythm and no gallops GI GI Narrative: very mild distension, no pain with palpation, BS's are normal, no masses, mild tympany Extremity no calf tenderness and no pedal edema Skin General Skin Exam: no breakdown Rashes: no rashes Assessment & Plan Assessment/Plan (1) Lacunar infarction: (2) Pseudobulbar affect: (3) Debility: (4) Acute depression: (5) Hemorrhagic cerebrovascular accident (CVA): PLAN: 1. Continue therapy. SNF at [place]......would like to go to TCU 2. Continue the Dronabinol
--- NOTE | 2022-01-11 15:23 | CASEMGMT ---
Social Work IDT met with patient and 3 daughters for Team meeting. Discussed patient's progress in PT/OT/ST and nursing. Pt making progress. Explained pt NRD is today with expectation of denial of further stay. Precert for TCU has been started. If approved, pt will transfer to TCU tomorrow, if denied pt will go to [facility] tomorrow. Pt is understanding and agreeable. SW will update pt and family when insurance determination is made. RAFAEL García
--- NOTE | 2022-01-11 15:59 | CASEMGMT ---
Social Work Pt was approved by insurance for admission to TCU. SW updated pt and pt dgt Amara who will update pt and rest of family. Phone call to [facility] and informed of discharge plan. Plan: TCU, tomorrow. RAFAEL García
[2022-01-11 16:33] VITALS: BMI 32.3
[2022-01-11 19:31] VITALS: BP 147/81; PULSE 82; RESP 18; TEMP 36.4; O2SAT 92
[2022-01-11 22:00] VITALS: PULSE 82
[2022-01-11] MEDS: Dronabinol 2.5 MG Capsule PO (22:00)
[2022-01-11 23:35] VITALS: BMI 32.3
--- NOTE | 2022-01-12 04:11 | NURSING ---
Reviewed and agree with [employer] PAN TANK OPERATOR documentation and assessment charting.
[2022-01-12] MEDS: Menthol/Lanolin/Calamine/Znox 113 GM Tube 1 APPLIC TOPICAL (05:15)
[2022-01-12 07:41] VITALS: BP 104/68; PULSE 71; RESP 16; TEMP 36.6; O2SAT 94
[2022-01-12 08:55] VITALS: BP 104/68; PULSE 71
[2022-01-12] MEDS: Metoprolol Tartrate 25 MG Tablet PO (08:55)
[2022-01-12] MEDS: Sertraline 50 MG Tablet 25 MG PO (08:56)
[2022-01-12] MEDS: Cholecalciferol (VIT D3) 25 MCG TABLET (1,000 UNITS) PO (08:56)
[2022-01-12] MEDS: Ascorbic Acid 500 MG Tablet PO (08:56)
[2022-01-12] MEDS: Senna/Docusate Sodium 1 Tablet 2 TABLET PO (08:56)
[2022-01-12] MEDS: amLODIPine 5 MG Tablet PO (08:56)
[2022-01-12 09:14] VITALS: O2SAT 92
--- NOTE | 2022-01-12 13:16 | PCM.TXEXTCAR ---
Diet 12/22/21 12:39 Diet: Cardiac - Heart Healthy Food consistency:: Easy to Chew Liquid Consistency:: Regular/Thin Is pt able to select menu?: No Tube Feed: N/A Routine Orders/Code Status Enema Type: Fleetz Enema Frequency: Daily PRN Suppository Type: Dulcolax 10mg Suppository Frequency: Daily PRN O2 Liters per Minute: 2 LPM O2 Frequency: PRN (while sleeping) Keep PO Greater than or Equal to (%): 90 Wound(s) rt elbow: Wound Type: Abrasion Suggestions for Active Care Times a day to sit in chair: 3 Therapies Weight Bearing: Full weight bearing Physical Therapy: Eval and Treat Occupational Therapy: Eval and Treat Speech Therapy: Eval and Treat Problem/Diagnosis (1) Hemorrhagic cerebrovascular accident (CVA): Status: Acute (2) Nontraumatic cerebral edema: Status: Acute (3) Dysphagia: Status: Acute (4) Cognitive dysfunction: Status: Acute (5) Dysarthria: Status: Acute (6) Right hemiparesis: Status: Acute (7) Acute depression: Status: Acute (8) Pseudobulbar affect: Status: Acute (9) Hypoxia: Status: Acute (10) Sleep-disordered breathing: Status: Acute (11) Insomnia: Status: Resolved Comment: Resolved with medication (12) HTN (hypertension): Status: Chronic (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 Estrada following DC from TCU Non-contrast CT brain for follow up of hemorrhagic CVA. SEnd results to Dr. Brenda Jung&P will serve as current which was dated: 12/11/21 Day of Discharge: 01/12/22 Dietary and Speech Recommendations Dietitian Recommendations/Changes: continue cardiac diet- texture/consistency modifications per [employer] MUTUAL TICKET CHECKER. Follow Up Care Please follow up with your Primary Care Physician in: 7-10 days following DC from TCU Please Follow Up With: Dr. Sekou Estrada When: following DC from TCU Please Follow Up With: Dr. Gutierrez When: After DC from TCU if needed......neurosurgery Discharge Plan Admission Admit Date/Time: 12/10/21 17:45 Primary Reason for Your Visit: Post stroke debility. Attending Provider: Nadiya Castano Primary Care Provider: Daniel Tijerina Discharge Orders/Prescriptions Prescriptions: New amlodipine 5 mg Tablet 5 mg PO DAILY Qty: 0 RF: 0 bisacodyl 10 mg Suppository 10 mg NE .PRN X 1 PRN (Reason: Constipation) Qty: 0 RF: 0 cholecalciferol (vitamin D3) 25 mcg (1,000 unit) Tablet 25 mcg PO DAILY Qty: 0 RF: 0 dronabinol 2.5 mg Capsule 2.5 mg PO QHS Qty: 0 RF: 0 magnesium hydroxide 400 mg/5 mL Suspension 30 ml PO .PRN X 1 PRN (Reason: Constipation) Qty: 0 RF: 0 menthol-zinc oxide [Calmoseptine] 0.44-20.6 % Ointment 1 applic topical BID@0600,2200 Qty: 0 RF: 0 sennosides-docusate sodium [Stool Softener-Stimulant Laxat] 8.6-50 mg Tablet 2 tab PO BID Qty: 0 RF: 0 nystatin [Nyamyc] 100,000 unit/gram Powder 1 applic topical BID Qty: 0 RF: 0 sertraline 50 mg Tablet 25 mg PO DAILY Qty: 0 RF: 0 Continued metoprolol tartrate 50 mg tablet 25 mg PO BID RF: 0 ascorbic acid (vitamin C) [Vitamin C] 500 mg Tablet 500 mg PO BID RF: 0 Discontinued triamterene-hydrochlorothiazid [Maxzide-25mg] 37.5-25 mg Tablet 1 tab PO DAILY RF: 0 Referrals / Follow Up: Daniel Tijerina DO [Primary Care Provider] - In 1 Week Disposition Disposition (needs filled in before D/C Order can be placed): [facility]
--- NOTE | 2022-01-12 13:46 | DS.PCM_ITS ---
Providers Date of Admission: 12/10/21 Primary Care Physician: Dr. Daniel Tijerina DO Reason For Visit: STROKE Diagnosis Discharge Diagnosis (1) Hemorrhagic cerebrovascular accident (CVA): Status: Acute Code(s): I61.9 - Nontraumatic intracerebral hemorrhage, unspecified (2) Nontraumatic cerebral edema: Status: Acute Code(s): G93.6 - Cerebral edema (3) Dysphagia: Status: Acute Code(s): R13.10 - Dysphagia, unspecified (4) Cognitive dysfunction: Status: Acute Code(s): F09 - Unspecified mental disorder due to known physiological condition (5) Dysarthria: Status: Acute Code(s): R47.1 - Dysarthria and anarthria (6) Right hemiparesis: Status: Acute Code(s): G81.91 - Hemiplegia, unspecified affecting right dominant side (7) Acute depression: Status: Acute Code(s): F32.A - Depression, unspecified (8) Pseudobulbar affect: Status: Acute Code(s): F48.2 - Pseudobulbar affect (9) Hypoxia: Status: Acute Code(s): R09.02 - Hypoxemia (10) Sleep-disordered breathing: Status: Acute Code(s): G47.30 - Sleep apnea, unspecified (11) Insomnia: Status: Resolved Code(s): G47.00 - Insomnia, unspecified (12) HTN (hypertension): Status: Chronic Code(s): I10 - Essential (primary) hypertension (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 Medications at Discharge Home Medications metoprolol tartrate 25 mg PO BID 12/04/21 ascorbic acid (vitamin C) [Vitamin C] 500 mg PO BID 12/10/21 amlodipine 5 mg PO DAILY #0 tab 01/12/[address] .PRN X 1 PRN #0 ea 01/12/22 cholecalciferol (vitamin D3) 25 mcg PO DAILY #0 tab 01/12/22 dronabinol 2.5 mg PO QHS #0 cap 01/12/22 magnesium hydroxide 30 ml PO .PRN X 1 PRN #0 ml 01/12/22 menthol-zinc oxide [Calmoseptine] 1 applic TOPICAL BID@0600,2200 #0 g 01/12/22 nystatin [Nyamyc] 1 applic TOPICAL BID #0 g 01/12/22 sennosides-docusate sodium [Stool Softener-Stimulant Laxat] 2 tab PO BID #0 tab 01/12/22 sertraline 25 mg PO DAILY #0 tab 01/12/22 Hospital Course Operations None Procedures None and - ([facility] on 12/14/21) Summary of Care Provided Minutes Spent on Discharge: 45 Hospital Course: LUCI MYERS, is an 86 YO M with a PMH of hypertension (takes Metoprolol and HCTZ) and obesity who presented to the ED at [facility] on 12/04/21 with c/o slurred speech, facial droop, R side weakness and a BRIGGS. Stat NC CTB showed a 2.9 cm X 2.1 cm intracerebral hematoma in the deep aspect of the left parietal lobe/BG/Putamen with minimal surrounding mass effect/vasogenic edema. He was transferred to [facility] to be evaluated by neurosurgery. A repeat brain scan was done at [facility] showed the ICH to be 3.5 cm within the left sided basal ganglia with adjacent vasogenic edema. He was seen by neurology and neurosurgery and no surgical intervention was necessary. Follow up scans showed the ICH to be stable. He was evaluated by PT/OT/ST and they felt he could do 3 hours of therapy a day and recommended transfer to acute rehab. He was transferred to [facility] acute rehab on 12/10/21 for 3 hours of therapy to restore function/independence at or near his level prior to the ICH. He had been independent with all ADL's and was driving prior to the stroke. Luci was very emotionally labile when he arrived on the rehab floor. He cried often and for no apparent reason. He was diagnosed with pseudobulbar affect . He was also despondent over not being able to do the things he used to do easily and was very hard on himself telling me he should be doing better. His appetite and intake were decreased and he had trouble sleeping. Initially he refused an antidepressant but, he continued to cry often and the depression worsened. I discussed the situation with his Aide and also with Luci and eventually they agreed to starting a medication and he was ordered Remeron. At first he tolerated this medication and his appetite and sleep improved but, he continued to having emotional lability and crying jags. The dose was increased. With the increased dose he started to c/o having no appetite, bloating, constipation and nausea. These things are all listed as possible adverse side effects of Remeron and so the medication was discontinued. His family is rather anti-medication and did not want to trial Nudexta for the suspected PBA. Insomnia, poor appetite, depression and crying increased and I spoke with Luci about trying a different antidepressant and he was agreeable. Sertraline was initiated for anxiety/depression and he was started on Dronabinol to increase appetite and help him sleep on 01/08/22. At TEAM meeting on 01/10/22 3 of his dtr's were present and Luci was happy, smiling and he did not shed 1 tear. I explained to them the medications he was on and recommended they be continued at [facility] since he was clearly doing better. Luci and his family were agreeable. He was very excited at that meeting about how he was able to do 10 sit to stands in 30 sec and and that he ambulated 20 ft using the wall rail with KITCHEN CHEF providing min to mod assist in 37 seconds. this is the first time I have seem him optimistic about getting home some day. BP was high at admission and he was dehydrated. HCTZ was discontinued and Amlodipine was added to the drug regimen. He was hydrated with IV NS and encouraged to increase his water intake which he was able to do. BP eventually came under good control with Amlodipine 5 mg daily and Metoprolol 25 mg BID. He is not on an antiplatelet agent. He is to have a NC CTB following transfer to [facility]. If the scan is stable with no bleeding would start ASA 81 mg daily. He is also not on a statin but, the LDL is only 75 and his family does not want him to be on a statin at this time. I think this is reasonable at this time. I suspect the hemorrhagic CVA may have been related to poorly controlled BP. Luci has made progress while on acute rehab but, it has been slow. I am hopeful that things will move along better since he is no longer crying frequently and he is optimistic about his future. The Dronabinol has really improved his outlook. He has only been on Sertraline for 6 days and I do not feel that the Sertraline is contributing to the improved outlook at this time. Luci was transferred to TCU on 01/12/22 in stable/improved condition. He maintains a pulse ox of 92 to 93% on room air while awake and at night he is 94% on a 2 L nasal cannula. He had an overnight trending pulse ox it was abnormal and should be scheduled for an outpatient sleep study following his discharge from TCU. He needs a NC CTB following transfer and the results should be sent to Dr. Gutierrez, neurosurgeon, at [facility]. Luci is supposed to follow up with Dr. Gutierrez going forward. I also recommend he follow up with Dr. Estrada in [place] for routine neurologic care. consideration could be give for starting a statin going forward to get the LDL < 70 to decrease his risk of another Stroke. Physical Exam Const alert, oriented x3 and no apparent distress Constitutional Narrative: smiling and upbeat General Appearance: cooperative HEENT normocephalic Eyes PERRL and EOMs intact bilaterally Eyes Narrative: no visual field cuts. Neck no lymphadenopathy, supple, no JVD and no carotid bruits General: trachea midline Resp normal respiratory effort and clear to auscultation bilaterally Resp Narrative: Able to speak in complete sentences. He initially had a few coarse crackles in the bases BL but, this completely resolved after a few deep breaths. No coughing. Effort and Inspection: Negative for tachypneic or uses accessory muscles Auscultation: Negative for rales, rhonchi or wheezes Cardio regular rate, regular rhythm, S1 normal heart sound, S2 normal heart sound, no murmurs, no rub and no gallops Cardio Narrative: no ectopy GI normal to inspection, nondistended, normoactive bowel sounds, soft to palpation and non-tender GI Narrative: No guarding with palpation. Extremity no clubbing, cyanosis or edema Skin General Skin Exam: no breakdown Rashes: no rashes Neuro Neuro Narrative: Facial droop and the dysarthria have improved considerably since admission. He now has movement in the R shoulder, elbow and is starting to have have movement of the R thumb. He now has a hand grasp but it is weak. He can move the Left foot forward when ambulating at least 50% of the time without the KITCHEN CHEF having to move it for him. No aphasia. He has persistent decreased sensation on the R side compared to the left. Psych denies homicidal ideation and denies suicidal ideation Psych Narrative: Affect is more upbeat and he is smiling and interacting more with the staff and his family. Appearance: appropriate Attitude: No agitated Mood & Affect: Negative for anxious Thought Content: No delusion(s) Weight / BMI Weight Weight: 199 lb 11.821 oz Body Mass Index (BMI) 32.3 ABG / Lab / Microbiology Data Result Diagrams: 01/01/22 05:30 01/01/22 05:30 Microbiology: Microbiology 01/11/22 16:40 Nasal Secretion SARS-CoV-2 Antigen (Rapid) - Final 12/26/21 11:30 Mucosa - Nose Respiratory Panel (PCR) - Final 12/26/21 11:30 Nasal Secretion SARS-CoV-2 Antigen (Rapid) - Final Meaningful Use Info Meaningful Use Diagnoses (Choose all that apply): Hemorrhagic CVA CVA Therapy Assessed for PT,OT and/or ST?: Yes Ischemic Stroke Antithrombotic order at d/c?: No Reason antithrombotic not ordered: Treatment not Indicated Dx of Atrial fib/flutter?: No Anticoagulant at discharge?: No Reason anticoagulant not ordered: Treatment not Indicated Reason Statin not ordered: Drug Declined by Patient Primary Dx Acute Ischemic CVA?: No IV tPA ordered during stay?: No Reason IV t-PA not ordered: Treatment not Indicated (he had a hemorrhagic CVA) Discharge Plan Admission Admit Date/Time: 12/10/21 17:45 Primary Reason for Your Visit: Post stroke debility. Attending Provider: Nadiya Castano Primary Care Provider: Daniel Tijerina Discharge Orders/Prescriptions Prescriptions: New amlodipine 5 mg Tablet 5 mg PO DAILY Qty: 0 RF: 0 bisacodyl 10 mg Suppository [address] .PRN X 1 PRN (Reason: Constipation) Qty: 0 RF: 0 cholecalciferol (vitamin D3) 25 mcg (1,000 unit) Tablet 25 mcg PO DAILY Qty: 0 RF: 0 dronabinol 2.5 mg Capsule 2.5 mg PO QHS Qty: 0 RF: 0 magnesium hydroxide 400 mg/5 mL Suspension 30 ml PO .PRN X 1 PRN (Reason: Constipation) Qty: 0 RF: 0 menthol-zinc oxide [Calmoseptine] 0.44-20.6 % Ointment 1 applic topical BID@0600,2200 Qty: 0 RF: 0 sennosides-docusate sodium [Stool Softener-Stimulant Laxat] 8.6-50 mg Tablet 2 tab PO BID Qty: 0 RF: 0 nystatin [Nyamyc] 100,000 unit/gram Powder 1 applic topical BID Qty: 0 RF: 0 sertraline 50 mg Tablet 25 mg PO DAILY Qty: 0 RF: 0 Continued metoprolol tartrate 50 mg tablet 25 mg PO BID RF: 0 ascorbic acid (vitamin C) [Vitamin C] 500 mg Tablet 500 mg PO BID RF: 0 Discontinued triamterene-hydrochlorothiazid [Maxzide-25mg] 37.5-25 mg Tablet 1 tab PO DAILY RF: 0 Referrals / Follow Up: Daniel Tijerina DO [Primary Care Provider] - In 1 Week Disposition Disposition (needs filled in before D/C Order can be placed): [facility] Facility Charges/Coding Visit Charges Inpatient E&M: 34983 Disch Hosp
[2022-01-12 14:08] VITALS: BMI 32.3
[2022-01-12 14:26] VITALS: BP 104/68; PULSE 71; RESP 16; TEMP 36.6; O2SAT 94
--- NOTE | 2022-01-12 14:28 | NURSING ---
Discharged to TCU. Report called to Yadi
== END 2022-01-12 14:29 | disposition skilled nursing facility (03) | DRG 57 ==
PROVIDERS: Admitting Provider Internal Medicine; PCP Family Medicine; Visit Provider Internal Medicine
DX: I69.351 Hemiplegia and hemiparesis following cerebral infarction affecting right dominant side (principal); B37.0 Candidal stomatitis; K56.7 Ileus, unspecified; I10 Essential (primary) hypertension; G47.30 Sleep apnea, unspecified; E86.0 Dehydration; E80.6 Other disorders of bilirubin metabolism; F41.9 Anxiety disorder, unspecified; I69.322 Dysarthria following cerebral infarction; I69.319 Unspecified symptoms and signs involving cognitive functions following cerebral infarction; I69.392 Facial weakness following cerebral infarction; I69.321 Dysphasia following cerebral infarction; F48.2 Pseudobulbar affect; Z68.32 Body mass index [BMI] 32.0-32.9, adult; Z20.822 Contact with and (suspected) exposure to COVID-19; R09.02 Hypoxemia; F32.A Depression, unspecified; E66.9 Obesity, unspecified; Z79.899 Other long term (current) drug therapy; Z86.16 Personal history of COVID-19
CPT/HCPCS: 36415; 71046; 74018; 74230; 80048; 80053; 80061; 81001; 82248; 82962; 83036; 83615; 83690; 83735; 84100; 85014; 85018; 85025; 85027; 85652; 87426; 87633; 92507; 92526; 92610; 92611; 94667; 94668; 94762; 97032; 97110; 97112; 97116; 97129; 97130; 97140; 97162; 97166; 97530; 97535; 97802; 97803; 99251; J7050; A4216; G0463; J7799

== ENCOUNTER 2022-01-12 14:30 | Inpatient (IN) | payer MEDICARE, SELFPAY ==
[2022-01-12 14:38] VITALS: BP 110/57; PULSE 76; RESP 16; TEMP 36.3; O2SAT 94; BMI 30.3
--- NOTE | 2022-01-12 15:16 | CASEMGMT ---
Social Work Pt admitted from IRU. Reexplained to pt [employer] insurance will proceed with completing updates on LOS and dictating DC, the same as IRU. Pt very grateful insurance approved for TCU stay. The alternative DC plan remains [facility] private pay if pt cannot return home with . SW to continue to follow. Louise Finney ,HANDKERCHIEF C[employer]CHO[employer] AGE LEAD TEACHER
[2022-01-12 17:24] VITALS: BP 110/57; PULSE 76
[2022-01-12] MEDS: Metoprolol Tartrate 25 MG Tablet PO (17:24)
[2022-01-12] MEDS: Ascorbic Acid 500 MG Tablet PO (17:24)
[2022-01-12] MEDS: Senna/Docusate Sodium 1 Tablet 2 TABLET PO (17:25)
--- NOTE | 2022-01-12 18:58 | HP.PCM_ITS ---
HPI - General General Date of Admission: 01/12/22 HPI Narrative 12/04/2021 LUCI MYERS, is a 86 Male who presents to [facility] Emergency Department with slurred speech, facial droop, right sided weakness, headache. CT brain showed intracerebral hemorrhage. Transfer to [facility]. Both Neurology, and Neurosurgery recommended no surgery. 12/10/2021 Admit to RU. Refuses treatment of pseudobulbar affect. 12/14/2021 Nuedexta treatment discussed for pseudobulbar affect. Amlodipine 2.5mg added for elevated blood pressure. 12/16/2021 Rx Mirtazapine 7.5mg for depression, appetite loss. IV fluids given for dehydration. 12/17/2021 Stop IV fluids, BUN/Creatinine improving. 12/24/2021 Increase Amlodipine to 5mg daily for elevated blood pressure. 12/25/2021 Fever, Zosyn IV, source of infection unknown. Mirtazapine increased to 15mg daily. 12/29/2021 Simethicone added for gas. Continue Zosyn IV. 12/31/2021 Finish 7 day course of Zosyn IV. Family reluctant on antidepressant, Nuedexta. 01/01/2022 Mirtazapine increased to 30mg daily. Hold statin due to hemorrhagic stroke. 01/04/2022 Decrease Mirtazapine to 7.5mg for bloating. 01/07/2022 Stop Mirtazapine, start Sertraline 25mg daily for depression. Start Dronabinol 2.5mg daily for appetite loss. 01/11/2022 No crying today, pseudobulbar affect improved with Sertraline. 01/12/2022 Admit to TCU with debility, here for rehabilitation, strengthening, prior to discharge home with . [facility] Medical History COVID-19 virus infection HTN (hypertension) Lacunar infarction Obesity (BMI 30.0-34.9) Home Medications metoprolol tartrate 25 mg PO BID 12/04/21 [History Last Taken 01/12/22] ascorbic acid (vitamin C) [Vitamin C] 500 mg PO BID 12/10/21 [History Last Taken 01/12/22] amlodipine 5 mg PO DAILY 01/12/22 [History Last Taken 01/12/22] bisacodyl 10 mg CA .PRN X 1 PRN #0 ea 01/12/22 [Rx Last Taken Unknown] cholecalciferol (vitamin D3) 25 mcg PO DAILY 01/12/22 [History Last Taken 01/12/22] dronabinol 2.5 mg PO QHS 01/12/22 [History Last Taken 01/11/22] magnesium hydroxide 30 ml PO .PRN X 1 PRN #0 ml 01/12/22 [Rx Last Taken Unknown] menthol-zinc oxide [Calmoseptine] 1 applic TOPICAL BID@0600,2200 01/12/22 [History Last Taken 01/12/22] nystatin [Nyamyc] 1 applic TOPICAL BID 01/12/22 [History Last Taken 01/12/22] sennosides-docusate sodium [Stool Softener-Stimulant Laxat] 2 tab PO BID 01/12/22 [History Last Taken 01/12/22] sertraline 25 mg PO DAILY 01/12/22 [History Last Taken 01/12/22] Allergy/AdvReac Type Severity Reaction Status Date / Time No Known Allergies Allergy Verified 12/04/21 08:38 Surgical History No history of previous surgery Social History household members: spouse housing: house number of children: 4 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 Smoking Status: Never smoker Electronic Cigarette Use: not used alcohol intake: never substance use type: does not use ROS Constitutional Constitutional: Denies chills, fever(s) or weight gain ENT HEENT: Denies headache(s), nasal congestion or nasal discharge Cardiovascular Cardiovascular: Denies chest pain or palpitations Respiratory/Chest Respiratory/Chest: Denies cough, excessive phlegm production or shortness of breath with exertion Gastrointestinal Gastrointestinal: Denies abdominal pain, nausea or vomiting Genitourinary Genitourinary: Denies dysuria Musculoskeletal Musculoskeletal: Denies joint pain or joint swelling Integumentary Integumentary: Denies rash or wounds Neurologic Neurologic: Reports focal weakness; Denies tingling Psychiatric Psychiatric: Denies anxiety, auditory hallucinations, depression, homicidal ideation or suicidal ideation Vital Signs Vital Signs Vital Signs: 01/12/22 14:38 01/12/22 14:52 01/12/22 17:24 Temperature 97.4 F L Temperature Source Temporal Pulse Rate 76 76 Pulse Rhythm Regular Pulse Strength Normal (2+) Respiratory Rate 16 Respiratory Effort Normal Non-Labored Respiratory Depth Normal Respiratory Pattern Normal Blood Pressure 110/57 L 110/57 L Blood Pressure Mean 74 Blood Pressure Source Monitor Blood Pressure Position Semi-Fowlers Blood Pressure Location Left Arm Pulse Ox 94 Oxygen Delivery Method Room Air Room Air Weight Weight: 90.6 kg Body Mass Index (BMI) 30.3 Physical Exam Const alert and oriented x3 General Appearance: cooperative HEENT normocephalic Eyes PERRL and EOMs intact bilaterally Neck supple, no JVD and no carotid bruits Resp normal respiratory effort, normal air movement and clear to auscultation bilaterally Cardio regular rate and regular rhythm GI normal to inspection, nondistended, normoactive bowel sounds, non-tender and non-distended Extremity normal capillary refill General Extremity: Negative for edema Skin no rashes or lesions noted General Skin Exam: no breakdown Neuro Neuro Narrative: Right hemiplegia, upper worse than lower. Psych affect normal Appearance: appropriate Results Lab / Micro Data Micro: Microbiology 01/12/22 15:25 Nasal Secretion SARS-CoV-2 Antigen (Rapid) - Final Assessment & Plan Assessment/Plan (1) Debility: (2) Hemorrhagic cerebrovascular accident (CVA): (3) Pseudobulbar affect: (4) Dysarthria: (5) Right hemiparesis: (6) HTN (hypertension): (7) Lacunar infarction: PLAN: 86 year old male with below past medical history hospitalized for left hemorrhagic stroke 12/04/2021, right hemiplegia, complicated by pseudobulbar affect, appetite loss, admitted to RU, then admitted to TCU with debility, here for rehabilitation, strengthening, prior to discharge home with . * Debility - PT/OT. * Dysarthria - ST. * Pain - Tylenol 1000mg q6h prn pain (1-10). * Bowel - senna/colace 2 tablets bid, Dulcolax 10mg pr x 1 prn, MOM 30ml po x 1 prn. * Adult immunization - Administer prevnar 20, fluzone, covid19 vaccine as appropriate. * DVT prophylaxis - HAS-BLED score 2 intermediate risk of bleeding, Biju score 5 high risk of DVT/PE, recommend Lovenox 30mg sc daily. * Hypertension - Metoprolol 25mg bid, Amlodipine 5mg daily. * Vitamin C deficiency - Vitamin C 500mg bidcm. * Vitamin D deficiency- D3 25mcg daily. 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 * Nutrition - Ensure Enlive 120ml 4x/day. * Skin irritation - Calmoseptine topical bid. * Tinea Corporis - Nystatin powder topical bid. * Depression/Pseudobulbar affect - Sertraline 25mg daily.
[2022-01-12] MEDS: Dronabinol 2.5 MG Capsule PO (21:14)
[2022-01-12] MEDS: Nystatin Powder 15gm Bottle 1 APPLIC TOPICAL (21:16)
[2022-01-12] MEDS: Menthol/Lanolin/Calamine/Znox 113 GM Tube 1 APPLIC TOPICAL (21:16)
[2022-01-13 05:27] LABS: Absolute Lymphocyte Count 1.83 X10^3/uL (0.83-4.51); Absolute Neutrophil Count 5.6 X10^3/uL (2.0-7.7); Basophil# 0.05 X10^3/uL; Basophil% 0.6 % (0-1); Eosinophil# 0.35 X10^3/uL; Hematocrit 39.7 % (40-54); Hemoglobin 13.6 g/dL (13.0-16.5); Lymphocyte # 1.83 X10^3/ul (0.83-4.51); Lymphocyte % 20.8 % (19-41); Mean Corp Hgb Conc 34.3 g/dL (32-36); Mean Corpuscular Hgb 34.3 pg (27.0-32.0); Mean Corpuscular Volume 100.3 fL (80-94); Mean Platelet Vol. 8.3 fl (6.2-12.0); Monocyte# 0.88 X10^3/uL; NRBC Flagged by Analyzer 0 % (0-5); Neutrophil # 5.64 X10^3/uL (2.7-7.7); Neutrophil % 63.9 % (47-70); Platelet Count 209 K/mm3 (150-450); RBC Distribution Width SD 44.4 fl (35.1-43.9); Red Blood Count 3.96 M/mm3 (4.6-6.2); White Blood Count 8.8 K/mm3 (4.4-11.0)
[2022-01-13 05:31] VITALS: BP 128/73; PULSE 68; RESP 18; TEMP 36.5; O2SAT 96
[2022-01-13] MEDS: Sertraline 50 MG Tablet 25 MG PO (05:32)
[2022-01-13 05:33] VITALS: PULSE 68
[2022-01-13] MEDS: Enoxaparin 30 MG/0.3 ML Syringe SC (05:33)
[2022-01-13] MEDS: Senna/Docusate Sodium 1 Tablet 2 TABLET PO (05:33)
[2022-01-13] MEDS: Metoprolol Tartrate 25 MG Tablet PO ×2 (05:33→17:08)
[2022-01-13] MEDS: amLODIPine 5 MG Tablet PO (05:33)
[2022-01-13] MEDS: Nystatin Powder 15gm Bottle 1 APPLIC TOPICAL ×2 (05:38→21:06)
[2022-01-13] MEDS: Menthol/Lanolin/Calamine/Znox 113 GM Tube 1 APPLIC TOPICAL ×2 (05:38→17:08)
[2022-01-13 05:54] LABS: Anion Gap 2 (5-15); BUN 30 mg/dL (7-18); BUN/Creat Ratio 36.3 RATIO (10-20); Calcium,Total 9.5 mg/dL (8.5-10.1); Chloride 106 mmol/L (98-107); Creatinine, Serum 0.83 mg/dL (0.70-1.30); EST Glomerular Filtration Rate 94 mL/min (>60); Est Glom Filt Rate - Afr Amer 114 mL/min (>60); Glucose 112 mg/dL (74-106); Sodium Level 138 mmol/L (136-145)
[2022-01-13] MEDS: Ascorbic Acid 500 MG Tablet PO ×2 (07:49→17:07)
[2022-01-13] MEDS: Cholecalciferol (VIT D3) 25 MCG TABLET (1,000 UNITS) PO (07:49)
[2022-01-13 10:00] VITALS: PULSE 61; RESP 16; O2SAT 94
[2022-01-13] MEDS: Tuberculin,Purif.prot.deriv. 50 TU/ML Vial 0.1 ML ID (11:38)
[2022-01-13 15:15] VITALS: BP 128/73; PULSE 68; RESP 18; TEMP 36.5; O2SAT 96
[2022-01-13 17:08] VITALS: BP 128/73; PULSE 68
[2022-01-13] MEDS: Dronabinol 2.5 MG Capsule PO (21:04)
[2022-01-14] MEDS: Sertraline 50 MG Tablet 25 MG PO (06:22)
[2022-01-14 06:23] VITALS: BP 128/56; PULSE 65
[2022-01-14] MEDS: Enoxaparin 30 MG/0.3 ML Syringe SC (06:23)
[2022-01-14] MEDS: amLODIPine 5 MG Tablet PO (06:23)
[2022-01-14] MEDS: Metoprolol Tartrate 25 MG Tablet PO ×2 (06:23→17:11)
[2022-01-14] MEDS: Menthol/Lanolin/Calamine/Znox 113 GM Tube 1 APPLIC TOPICAL ×2 (06:27→17:13)
[2022-01-14] MEDS: Nystatin Powder 15gm Bottle 1 APPLIC TOPICAL ×2 (06:28→17:13)
[2022-01-14 07:59] VITALS: O2SAT 96
[2022-01-14] MEDS: Ascorbic Acid 500 MG Tablet PO ×2 (09:50→17:11)
[2022-01-14] MEDS: Cholecalciferol (VIT D3) 25 MCG TABLET (1,000 UNITS) PO (09:50)
--- NOTE | 2022-01-14 13:58 | NURSING ---
Resident educated on the COVID19 Vaccine and does not want to receive it.
[2022-01-14 15:11] VITALS: BP 115/64; PULSE 69; RESP 16; TEMP 36.6; O2SAT 98
--- NOTE | 2022-01-14 15:18 | PHA.CONS1_ITS ---
Progress Note - Pharmacy Subjective: TCU ADMISSION Objective: Allergies No Known Allergies Allergy (Verified 12/04/21 08:38) Current Medications Generic Name Dose Route Start Last Admin Trade Name Frankq PRN Reason Stop Dose Admin Acetaminophen 1,000 mg 01/12/22 19:18 Acetaminophen 500 Mg Tablet PO Q6H PRN PRN Pain Score 1-10 Amlodipine Besylate 5 mg 01/13/22 06:00 01/14/22 06:23 Amlodipine 5 Mg Tablet PO 5 mg DAILY ROSELINE Administration Ascorbic Acid 500 mg 01/12/22 17:00 01/14/22 09:50 Ascorbic Acid 500 Mg Tablet PO 500 mg BIDCM ROSELINE Administration Bisacodyl 10 mg 01/12/22 15:27 Bisacodyl 10 Mg Suppository RC .PRN X 1 PRN Constipation Calamine/Phenol 1 applic 01/12/22 18:00 01/14/22 06:27 Menthol/Lanolin/Calamine/Znox 113 Gm Tube TOPICAL 1 applic BID ROSELINE Administration Protocol Cholecalciferol 25 mcg 01/13/22 08:00 01/14/22 09:50 Cholecalciferol (Vit D3) 25 Mcg Tablet (1,000 Units) PO 25 mcg DAILYCM ROSELINE Administration Dronabinol 2.5 mg 01/12/22 22:00 01/13/22 21:04 Dronabinol 2.5 Mg Capsule PO 2.5 mg QHS ROSELINE Administration Enoxaparin Sodium 30 mg 01/13/22 06:00 01/14/22 06:23 Enoxaparin 30 Mg/0.3 Ml Syringe SC 30 mg DAILY ROSELINE Administration Magnesium Hydroxide 30 ml 01/12/22 15:27 Magnesium Hydroxide 30 Ml Udc PO .PRN X 1 PRN Constipation Metoprolol Tartrate 25 mg 01/12/22 18:00 01/14/22 06:23 Metoprolol Tartrate 25 Mg Tablet PO 25 mg BID ROSELINE Administration Nutritional Formula (Lactose Free) 120 ml 01/12/22 17:00 01/14/22 11:11 Ensure Enlive 120 Ml Liquid PO 120 ml 4X/DAY ROSELINE Administration Nystatin 1 applic 01/12/22 18:00 01/14/22 06:28 Nystatin Powder 15gm Bottle TOPICAL 1 applic BID [facility] Administration Protocol Senna/Docusate Sodium 2 tablet 01/12/22 18:00 01/14/22 06:13 Senna/Docusate Sodium 1 Tablet PO Not Given BID ROSELINE Sertraline HCl 25 mg 01/13/22 06:00 01/14/22 06:22 Sertraline 50 Mg Tablet PO 25 mg DAILY ROSELINE Administration Tuberculin PPD 0.1 ml 01/20/22 10:00 Tuberculin,Purif.Prot.Deriv. 50 Tu/Ml Vial ID 01/20/22 10:01 X1 ONE Problem List (Last Reviewed 01/12/22 @ 19:[address] Domenic Ochoa MD) Lacunar infarction (Acute) Pseudobulbar affect (Acute) Debility (Acute) HTN (hypertension) (Chronic) Dysarthria (Acute) Right hemiparesis (Acute) Hemorrhagic cerebrovascular accident (CVA) (Acute) Vital Signs Temp Pulse Resp BP Pulse Ox 97.8 F 69 16 115/64 98 01/14/22 15:11 01/14/22 15:11 01/14/22 15:11 01/14/22 15:11 01/14/22 15:11 Oxygen Flow Rate (L/min) 2 Oxygen Delivery Method Room Air Weight: 90.6 kg Body Mass Index (BMI) 30.3 Sodium 138 mmol/L (136-145) 01/13/22 05:06 Potassium 4.0 mmol/L (3.5-5.1) 01/13/22 05:06 Chloride 106 mmol/L (98-107) 01/13/22 05:06 Carbon Dioxide 30.0 mmol/L (21.0-32.0) 01/13/22 05:06 Anion Gap 2 (5-15) L 01/13/22 05:06 BUN 30 mg/dL (7-18) H 01/13/22 05:06 Creatinine 0.83 mg/dL (0.70-1.30) 01/13/22 05:06 Est GFR (MDRD) Af Amer 114 mL/min (>60) 01/13/22 05:06 Est GFR (MDRD) Non-Af 94 mL/min (>60) 01/13/22 05:06 BUN/Creatinine Ratio 36.3 RATIO (10-20) H 01/13/22 05:06 Glucose 112 mg/dL (74-106) H 01/13/22 05:06 Assessment/Plan: 1. Pain: Tylenol 1000mg PO Q6h PRN Pain 1-10. Please continue to monitor for increased/decreased S/S Pain, PRN medication usage. 2. HTN: Norvasc 5mg PO Daily, Lopressor 25mg PO BID. Please continue to monitor BP (last 115/64), pulse (69), S/S extremity swelling. 3. DVT Prophylaxis: Lovenox 30mg SC Daily. Please continue to monitor CrCl ( 64mL/min), S/S bleeding/bruising, S/S blood clotting. 4. General Wellness: Cholecalciferol 25mcg PO daily, Ascorbic acid 500mg PO BID. Please continue to monitor. Psychotropic Medications: 5. Depression: Zoloft 25mg PO daily. Please consider a GDR by 07/2022 if clinically indicated, thank you. 6. Appetite loss: Marinol 2.5mg PO QHS. See note in H/P regarding GDR recommendation, thank you. Unnecessary Medications: None Bowel Regimen: Senna/Docusate 2 tab PO BID, Dulcolax 10mg MD x1 PRN, MOM 30mL PO x1 PRN. If clinically appropriate, please consider changing Senna/Docusate to PRN status, as the patient has refused 2 of the last 4 doses, thank you Date of Note:: 01/14/22
--- NOTE | 2022-01-14 15:40 | CHAPLAIN ---
Type of Pastoral Visit _x__ Initial Visit ___ Follow-up Visit ___ On-call Visit ___ General Patient Visit ___ Spiritual Assessment ___ Family Conference ___ Bereavement ___ Rapid Response ___ Code Blue ___ Other (describe below) Pastoral Care Referral From _x__ Patient ___ Family ___ Nurse ___ Physician ___ Weather Forecaster ___ Director Dance ___ Other (describe below) Sacrament/Intervention _x__ Active listening ___ Anointing ___ Lutheran ___ Bereavement ___ Communion ___ Ashely exploration ___ ___ Life review _x__ Prayer ___ Reconciliation ___ Sacrament of Sick _x_ Supportive presence ___ Wedding ___ Other (describe below) Pastoral Comments this patient was seen in Rehab recently so this was a follow up visit; pt gives update on progress; pt thankful he could just transfer to [facility] from Rehab; pt wants to be able to continue improvement; pt indicates disappointment that he must stay in his room due to quarantine; prayer requested
[2022-01-14 17:11] VITALS: PULSE 69
[2022-01-14] MEDS: Dronabinol 2.5 MG Capsule PO (23:02)
[2022-01-15 06:38] VITALS: BP 133/70
[2022-01-15] MEDS: Menthol/Lanolin/Calamine/Znox 113 GM Tube 1 APPLIC TOPICAL ×2 (06:41→17:41)
[2022-01-15] MEDS: Nystatin Powder 15gm Bottle 1 APPLIC TOPICAL ×2 (06:42→17:42)
[2022-01-15 06:45] VITALS: BP 133/70; PULSE 68
[2022-01-15] MEDS: amLODIPine 5 MG Tablet PO (06:45)
[2022-01-15] MEDS: Metoprolol Tartrate 25 MG Tablet PO ×2 (06:45→17:40)
[2022-01-15] MEDS: Sertraline 50 MG Tablet 25 MG PO (06:45)
[2022-01-15] MEDS: Senna/Docusate Sodium 1 Tablet 2 TABLET PO ×2 (06:46→17:40)
[2022-01-15] MEDS: Enoxaparin 30 MG/0.3 ML Syringe SC (06:46)
[2022-01-15] MEDS: Cholecalciferol (VIT D3) 25 MCG TABLET (1,000 UNITS) PO (07:39)
[2022-01-15] MEDS: Ascorbic Acid 500 MG Tablet PO ×2 (07:39→17:40)
[2022-01-15 16:52] VITALS: BP 118/68; PULSE 66; RESP 16; TEMP 36.7; O2SAT 93
[2022-01-15 17:40] VITALS: PULSE 66
[2022-01-15] MEDS: Dronabinol 2.5 MG Capsule PO (21:24)
[2022-01-15 22:00] VITALS: PULSE 63; RESP 16; O2SAT 96
[2022-01-16] MEDS: Sertraline 50 MG Tablet 25 MG PO (05:38)
[2022-01-16] MEDS: Senna/Docusate Sodium 1 Tablet 2 TABLET PO ×2 (05:38→17:36)
[2022-01-16] MEDS: Enoxaparin 30 MG/0.3 ML Syringe SC (05:38)
[2022-01-16] MEDS: amLODIPine 5 MG Tablet PO (05:39)
[2022-01-16] MEDS: Nystatin Powder 15gm Bottle 1 APPLIC TOPICAL ×2 (05:40→17:36)
[2022-01-16] MEDS: Menthol/Lanolin/Calamine/Znox 113 GM Tube 1 APPLIC TOPICAL ×2 (05:40→17:36)
[2022-01-16 05:41] VITALS: BP 109/68; PULSE 62
[2022-01-16] MEDS: Metoprolol Tartrate 25 MG Tablet PO ×2 (05:41→17:35)
[2022-01-16 05:49] VITALS: BP 109/68; PULSE 62; RESP 16; TEMP 36.4; O2SAT 96
[2022-01-16] MEDS: Ascorbic Acid 500 MG Tablet PO ×2 (07:53→17:35)
[2022-01-16] MEDS: Cholecalciferol (VIT D3) 25 MCG TABLET (1,000 UNITS) PO (07:53)
[2022-01-16 08:20] VITALS: O2SAT 98
[2022-01-16 13:15] VITALS: O2SAT 94
[2022-01-16 15:37] VITALS: BP 119/73; PULSE 71; RESP 16; TEMP 36.6
[2022-01-16 17:35] VITALS: BP 136/66; PULSE 70
[2022-01-16] MEDS: Dronabinol 2.5 MG Capsule PO (20:52)
--- NOTE | 2022-01-16 21:09 | NURSING ---
O2 applied to 2 lpm via nc for hs per pt request. SpO2 95% prior to applying O2.
[2022-01-17] MEDS: Enoxaparin 30 MG/0.3 ML Syringe SC (06:40)
[2022-01-17 06:41] VITALS: BP 135/76; PULSE 69
[2022-01-17] MEDS: amLODIPine 5 MG Tablet PO (06:41)
[2022-01-17] MEDS: Metoprolol Tartrate 25 MG Tablet PO ×2 (06:41→17:36)
[2022-01-17] MEDS: Senna/Docusate Sodium 1 Tablet 2 TABLET PO ×2 (06:41→17:36)
[2022-01-17] MEDS: Sertraline 50 MG Tablet 25 MG PO (06:42)
[2022-01-17 07:25] VITALS: O2SAT 92
[2022-01-17] MEDS: Ascorbic Acid 500 MG Tablet PO ×2 (07:57→17:36)
[2022-01-17] MEDS: Cholecalciferol (VIT D3) 25 MCG TABLET (1,000 UNITS) PO (07:57)
[2022-01-17] MEDS: Menthol/Lanolin/Calamine/Znox 113 GM Tube 1 APPLIC TOPICAL ×2 (08:59→17:37)
[2022-01-17] MEDS: Nystatin Powder 15gm Bottle 1 APPLIC TOPICAL ×2 (09:00→17:38)
[2022-01-17 15:36] VITALS: BP 129/68; PULSE 73; RESP 18; TEMP 36.7; O2SAT 92
[2022-01-17 17:36] VITALS: BP 127/75; PULSE 75
[2022-01-17] MEDS: Dronabinol 2.5 MG Capsule PO (20:55)
[2022-01-17 22:27] VITALS: PULSE 77; O2SAT 95
[2022-01-18 05:41] VITALS: BP 124/72; PULSE 62
[2022-01-18] MEDS: Enoxaparin 30 MG/0.3 ML Syringe SC (05:41)
[2022-01-18] MEDS: Metoprolol Tartrate 25 MG Tablet PO ×2 (05:41→16:53)
[2022-01-18] MEDS: Senna/Docusate Sodium 1 Tablet 2 TABLET PO (05:42)
[2022-01-18] MEDS: Sertraline 50 MG Tablet 25 MG PO (05:42)
[2022-01-18] MEDS: amLODIPine 5 MG Tablet PO (05:42)
[2022-01-18] MEDS: Nystatin Powder 15gm Bottle 1 APPLIC TOPICAL ×2 (05:44→16:55)
[2022-01-18] MEDS: Menthol/Lanolin/Calamine/Znox 113 GM Tube 1 APPLIC TOPICAL ×2 (05:44→16:55)
[2022-01-18] MEDS: Ascorbic Acid 500 MG Tablet PO ×2 (08:27→16:53)
[2022-01-18] MEDS: Cholecalciferol (VIT D3) 25 MCG TABLET (1,000 UNITS) PO (08:27)
[2022-01-18 10:15] VITALS: O2SAT 92
[2022-01-18 14:16] VITALS: BP 128/71; PULSE 69; RESP 16; TEMP 36.3; O2SAT 98
[2022-01-18 16:53] VITALS: PULSE 69
[2022-01-18] MEDS: Dronabinol 2.5 MG Capsule PO (21:41)
[2022-01-19 05:38] VITALS: BP 127/73; PULSE 64
[2022-01-19] MEDS: amLODIPine 5 MG Tablet PO (05:38)
[2022-01-19] MEDS: Enoxaparin 30 MG/0.3 ML Syringe SC (05:38)
[2022-01-19] MEDS: Sertraline 50 MG Tablet 25 MG PO (05:38)
[2022-01-19] MEDS: Metoprolol Tartrate 25 MG Tablet PO ×2 (05:38→17:26)
[2022-01-19] MEDS: Menthol/Lanolin/Calamine/Znox 113 GM Tube 1 APPLIC TOPICAL ×2 (05:39→20:34)
[2022-01-19] MEDS: Nystatin Powder 15gm Bottle 1 APPLIC TOPICAL ×2 (05:39→20:34)
[2022-01-19] MEDS: Cholecalciferol (VIT D3) 25 MCG TABLET (1,000 UNITS) PO (07:55)
[2022-01-19] MEDS: Ascorbic Acid 500 MG Tablet PO ×2 (07:55→17:24)
--- NOTE | 2022-01-19 08:39 | CASEMGMT ---
Social Work BIMS and PHQ-9 completed for MDS assessment. Louise Finney, LUMPIA WR[employer]
[2022-01-19 14:08] VITALS: BP 130/72; PULSE 66; RESP 18; TEMP 36.1; O2SAT 96
[2022-01-19 17:26] VITALS: BP 130/72; PULSE 66
[2022-01-19] MEDS: Senna/Docusate Sodium 1 Tablet 2 TABLET PO (17:27)
[2022-01-19] MEDS: Dronabinol 2.5 MG Capsule PO (20:15)
[2022-01-20 05:18] VITALS: BP 114/73; PULSE 68
[2022-01-20] MEDS: amLODIPine 5 MG Tablet PO (05:18)
[2022-01-20] MEDS: Enoxaparin 30 MG/0.3 ML Syringe SC (05:18)
[2022-01-20] MEDS: Metoprolol Tartrate 25 MG Tablet PO ×2 (05:18→18:31)
[2022-01-20] MEDS: Sertraline 50 MG Tablet 25 MG PO (05:18)
[2022-01-20] MEDS: Senna/Docusate Sodium 1 Tablet 2 TABLET PO (05:18)
[2022-01-20] MEDS: Menthol/Lanolin/Calamine/Znox 113 GM Tube 1 APPLIC TOPICAL ×2 (05:19→18:31)
[2022-01-20] MEDS: Nystatin Powder 15gm Bottle 1 APPLIC TOPICAL ×2 (05:26→18:32)
[2022-01-20 05:43] LABS: Absolute Lymphocyte Count 2.14 X10^3/uL (0.83-4.51); Absolute Neutrophil Count 5.1 X10^3/uL (2.0-7.7); Basophil# 0.03 X10^3/uL; Basophil% 0.4 % (0-1); Eosinophil# 0.27 X10^3/uL; Eosinophils% 3.3 % (0-5); Hematocrit 40.3 % (40-54); Hemoglobin 14.1 g/dL (13.0-16.5); Lymphocyte # 2.14 X10^3/ul (0.83-4.51); Lymphocyte % 25.9 % (19-41); Mean Corpuscular Hgb 34.4 pg (27.0-32.0); Mean Corpuscular Volume 98.3 fL (80-94); Mean Platelet Vol. 8.7 fl (6.2-12.0); Monocyte# 0.73 X10^3/uL; Monocyte% 8.8 % (0-10); NRBC Flagged by Analyzer 0 % (0-5); Neutrophil # 5.05 X10^3/uL (2.7-7.7); Neutrophil % 61.1 % (47-70); Platelet Count 178 K/mm3 (150-450); RBC Distribution Width CV 11.9 % (11.6-14.6); RBC Distribution Width SD 43.3 fl (35.1-43.9); White Blood Count 8.3 K/mm3 (4.4-11.0)
[2022-01-20 06:05] LABS: Anion Gap 2 (5-15); BUN 26 mg/dL (7-18); BUN/Creat Ratio 31.3 RATIO (10-20); Calcium,Total 9.5 mg/dL (8.5-10.1); Chloride 104 mmol/L (98-107); Creatinine, Serum 0.83 mg/dL (0.70-1.30); EST Glomerular Filtration Rate 94 mL/min (>60); Est Glom Filt Rate - Afr Amer 113 mL/min (>60); Glucose 101 mg/dL (74-106); Sodium Level 139 mmol/L (136-145)
[2022-01-20 07:18] VITALS: O2SAT 98
[2022-01-20] MEDS: Ascorbic Acid 500 MG Tablet PO ×2 (08:30→18:31)
[2022-01-20] MEDS: Cholecalciferol (VIT D3) 25 MCG TABLET (1,000 UNITS) PO (08:30)
--- NOTE | 2022-01-20 10:40 | CASEMGMT ---
Social Work IDT met with patient, and 3 dtrs for care plan meeting. Discussed patient's progress in PT/OT/ST and nursing. Pt progressing well. Praised pt for motivation toward rehab. Explained [employer] insurance with NRD 01/25 and continued stay is not guaranteed with each review. Inquired about DC plans from TCU. Family stated they have been working with [facility] to pay privately for pt to go there for respite stay. IDT agreeable to that plan. SW to send referral to [facility], update on DC plans, and order skilled HHC. Family appreciative. Left message with Darby at [facility]. Louise Finney, VIROLOGY TEACHER SOLE SPLITTER
[2022-01-20] MEDS: Tuberculin,Purif.prot.deriv. 50 TU/ML Vial 0.1 ML ID (11:30)
[2022-01-20 15:35] VITALS: BP 127/71; PULSE 66; RESP 14; TEMP 36.6; O2SAT 95
[2022-01-20 18:31] VITALS: BP 121/71; PULSE 66
[2022-01-20 21:09] VITALS: BP 123/64; PULSE 59; RESP 16; TEMP 36.8; O2SAT 94
[2022-01-20] MEDS: Dronabinol 2.5 MG Capsule PO (21:13)
[2022-01-21 05:57] VITALS: BP 126/69; PULSE 66
[2022-01-21] MEDS: Metoprolol Tartrate 25 MG Tablet PO ×2 (05:57→17:25)
[2022-01-21] MEDS: Senna/Docusate Sodium 1 Tablet 2 TABLET PO (05:57)
[2022-01-21] MEDS: Enoxaparin 30 MG/0.3 ML Syringe SC (05:57)
[2022-01-21] MEDS: amLODIPine 5 MG Tablet PO (05:57)
[2022-01-21] MEDS: Nystatin Powder 15gm Bottle 1 APPLIC TOPICAL ×2 (05:58→20:45)
[2022-01-21] MEDS: Menthol/Lanolin/Calamine/Znox 113 GM Tube 1 APPLIC TOPICAL ×2 (05:58→20:45)
[2022-01-21] MEDS: Sertraline 50 MG Tablet 25 MG PO (05:58)
[2022-01-21] MEDS: Ascorbic Acid 500 MG Tablet PO ×2 (09:02→17:24)
[2022-01-21] MEDS: Cholecalciferol (VIT D3) 25 MCG TABLET (1,000 UNITS) PO (09:02)
--- NOTE | 2022-01-21 09:22 | NURSING ---
Line Construction Engineer Note: MDS section F complete. Interview with resident.
[2022-01-21 10:42] VITALS: O2SAT 94
[2022-01-21 15:28] VITALS: BP 119/62; PULSE 68; RESP 16; TEMP 36.2; O2SAT 98
[2022-01-21 17:25] VITALS: BP 119/62; PULSE 68
[2022-01-21] MEDS: Dronabinol 2.5 MG Capsule PO (20:43)
[2022-01-21 20:51] VITALS: PULSE 687; RESP 16; O2SAT 93
[2022-01-22 06:20] VITALS: BP 125/68; PULSE 69
[2022-01-22] MEDS: amLODIPine 5 MG Tablet PO (06:20)
[2022-01-22] MEDS: Enoxaparin 30 MG/0.3 ML Syringe SC (06:20)
[2022-01-22] MEDS: Senna/Docusate Sodium 1 Tablet 2 TABLET PO (06:20)
[2022-01-22] MEDS: Metoprolol Tartrate 25 MG Tablet PO ×2 (06:20→16:35)
[2022-01-22] MEDS: Menthol/Lanolin/Calamine/Znox 113 GM Tube 1 APPLIC TOPICAL ×2 (06:23→16:39)
[2022-01-22] MEDS: Nystatin Powder 15gm Bottle 1 APPLIC TOPICAL ×2 (06:23→16:39)
[2022-01-22] MEDS: Sertraline 50 MG Tablet 25 MG PO (07:24)
[2022-01-22] MEDS: Cholecalciferol (VIT D3) 25 MCG TABLET (1,000 UNITS) PO (07:52)
[2022-01-22] MEDS: Ascorbic Acid 500 MG Tablet PO ×2 (07:52→16:35)
[2022-01-22 08:00] VITALS: O2SAT 92
[2022-01-22 13:37] VITALS: BP 100/58; PULSE 71; RESP 14; TEMP 36.3; O2SAT 93
[2022-01-22 16:35] VITALS: BP 111/66; PULSE 70
[2022-01-22] MEDS: Dronabinol 2.5 MG Capsule PO (20:35)
[2022-01-22 20:37] VITALS: PULSE 94; RESP 14; O2SAT 95
[2022-01-23] MEDS: Nystatin Powder 15gm Bottle 1 APPLIC TOPICAL ×2 (05:10→17:19)
[2022-01-23] MEDS: Menthol/Lanolin/Calamine/Znox 113 GM Tube 1 APPLIC TOPICAL ×2 (05:10→17:19)
[2022-01-23] MEDS: Enoxaparin 30 MG/0.3 ML Syringe SC (05:10)
[2022-01-23] MEDS: Sertraline 50 MG Tablet 25 MG PO (05:11)
[2022-01-23 05:12] VITALS: BP 134/75; PULSE 70
[2022-01-23] MEDS: Senna/Docusate Sodium 1 Tablet 2 TABLET PO ×2 (05:12→17:17)
[2022-01-23] MEDS: amLODIPine 5 MG Tablet PO (05:12)
[2022-01-23] MEDS: Metoprolol Tartrate 25 MG Tablet PO ×2 (05:12→17:17)
[2022-01-23] MEDS: Ascorbic Acid 500 MG Tablet PO ×2 (09:19→17:17)
[2022-01-23] MEDS: Cholecalciferol (VIT D3) 25 MCG TABLET (1,000 UNITS) PO (09:19)
[2022-01-23 17:15] VITALS: BP 134/70; PULSE 69; RESP 16; TEMP 36.6; O2SAT 93
[2022-01-23 17:17] VITALS: PULSE 69
[2022-01-23] MEDS: Dronabinol 2.5 MG Capsule PO (22:42)
[2022-01-24] MEDS: Nystatin Powder 15gm Bottle 1 APPLIC TOPICAL ×2 (05:13→18:51)
[2022-01-24] MEDS: Senna/Docusate Sodium 1 Tablet 2 TABLET PO (05:14)
[2022-01-24] MEDS: Menthol/Lanolin/Calamine/Znox 113 GM Tube 1 APPLIC TOPICAL ×2 (05:14→18:51)
[2022-01-24] MEDS: Sertraline 50 MG Tablet 25 MG PO (05:14)
[2022-01-24] MEDS: amLODIPine 5 MG Tablet PO (05:14)
[2022-01-24 05:15] VITALS: BP 128/70; PULSE 72
[2022-01-24] MEDS: Metoprolol Tartrate 25 MG Tablet PO ×2 (05:15→17:59)
[2022-01-24] MEDS: Enoxaparin 30 MG/0.3 ML Syringe SC (05:15)
[2022-01-24 05:20] VITALS: O2SAT 96
[2022-01-24] MEDS: Ascorbic Acid 500 MG Tablet PO ×2 (08:48→17:59)
[2022-01-24] MEDS: Cholecalciferol (VIT D3) 25 MCG TABLET (1,000 UNITS) PO (08:48)
[2022-01-24 16:00] VITALS: BP 115/70; PULSE 67; RESP 16; TEMP 36.6; O2SAT 93
[2022-01-24 17:59] VITALS: PULSE 67
[2022-01-24] MEDS: Dronabinol 2.5 MG Capsule PO (21:33)
[2022-01-24 21:40] VITALS: O2SAT 97
[2022-01-25] MEDS: Enoxaparin 30 MG/0.3 ML Syringe SC (05:30)
[2022-01-25] MEDS: Sertraline 50 MG Tablet 25 MG PO (05:30)
[2022-01-25 05:31] VITALS: BP 122/74; PULSE 64
[2022-01-25] MEDS: Metoprolol Tartrate 25 MG Tablet PO ×2 (05:31→17:09)
[2022-01-25] MEDS: amLODIPine 5 MG Tablet PO (05:31)
[2022-01-25] MEDS: Menthol/Lanolin/Calamine/Znox 113 GM Tube 1 APPLIC TOPICAL ×2 (05:32→18:56)
[2022-01-25] MEDS: Nystatin Powder 15gm Bottle 1 APPLIC TOPICAL ×2 (05:32→18:56)
[2022-01-25] MEDS: Ascorbic Acid 500 MG Tablet PO ×2 (09:02→17:08)
[2022-01-25] MEDS: Cholecalciferol (VIT D3) 25 MCG TABLET (1,000 UNITS) PO (09:03)
[2022-01-25 10:25] VITALS: PULSE 74; RESP 18; O2SAT 95
--- NOTE | 2022-01-25 11:35 | MDS.RN ---
Information for the mds was obtained from review of the clinical record, interview of resident, staff, and direct observation of resident's care.
--- NOTE | 2022-01-25 13:36 | CASEMGMT ---
Addendum entered by Louise Finney 01/27/22 15:28: Updated by nursing that family does not want sleep study at this time. Ordered 2L night O2 from [employer] to continue using. Addendum entered by Louise Finney 01/25/22 14:14: Pt requires platform FWW. Referred to [facility]. Original Note: Social Work Insurance issued LCD 01/27, DC 01/28. Spoke with pt and he is agreeable with the plan remaining DC to [facility] with [facility] PT/OT/ST. Spoke with whom confirmed plan and requesting [facility]. requesting transport to [facility] at 1300 as she has appts in the AM. Spoke with Darby at [facility] whom confirmed DC and [facility]. Referral made to [facility] PT/OT/ST. Scheduled [facility] w[facility]c for 01/28 at 1300. Plan: DC to [facility] 01/28, [facility] PT/OT/ST MICHAEL TorrezW
[2022-01-25 14:23] VITALS: BP 121/61; PULSE 70; RESP 16; TEMP 36.3; O2SAT 96
[2022-01-25 17:09] VITALS: BP 121/61; PULSE 70
[2022-01-25] MEDS: Senna/Docusate Sodium 1 Tablet 2 TABLET PO (17:09)
--- NOTE | 2022-01-25 18:56 | PCM.DC.SUM ---
Providers Date of Admission: 01/12/22 Primary Care Physician: Dr. Daniel Tijerina DO Reason For Visit: STROKE Diagnosis Discharge Diagnosis (1) Debility: Status: Acute Code(s): R53.81 - Other malaise (2) Hemorrhagic cerebrovascular accident (CVA): Status: Acute Code(s): I61.9 - Nontraumatic intracerebral hemorrhage, unspecified (3) Pseudobulbar affect: Status: Acute Code(s): F48.2 - Pseudobulbar affect (4) Dysarthria: Status: Acute Code(s): R47.1 - Dysarthria and anarthria (5) Right hemiparesis: Status: Acute Code(s): G81.91 - Hemiplegia, unspecified affecting right dominant side (6) HTN (hypertension): Status: Chronic Code(s): I10 - Essential (primary) hypertension (7) Lacunar infarction: Status: Acute Code(s): I63.81 - Other cerebral infarction due to occlusion or stenosis of small artery Medications at Discharge Home Medications metoprolol tartrate 25 mg PO BID 12/04/21 ascorbic acid (vitamin C) [Vitamin C] 500 mg PO BID 12/10/21 cholecalciferol (vitamin D3) 25 mcg PO DAILY 01/12/22 acetaminophen 1,000 mg PO Q6H PRN PRN #0 tab 01/25/22 amlodipine 5 mg PO DAILY 30 Days #30 tab 01/25/22 sertraline 25 mg PO DAILY 30 Days #30 tab 01/25/22 Hospital Course Operations None Procedures None Summary of Care Provided Minutes Spent on Discharge: 35 Hospital Course: 86 year old male with below past medical history hospitalized for left hemorrhagic stroke 12/04/2021, right hemiplegia, complicated by pseudobulbar affect, appetite loss, admitted to RU, then admitted to TCU with debility, here for rehabilitation, strengthening, prior to discharge home with . Discharge to [facility] 01/28/2022, [facility] PT/OT/ST. Physical Exam Const alert General Appearance: cooperative HEENT normocephalic Eyes PERRL and EOMs intact bilaterally Neck supple, no JVD and no carotid bruits Resp normal respiratory effort, normal air movement and clear to auscultation bilaterally Cardio regular rate and regular rhythm GI normal to inspection, nondistended, normoactive bowel sounds, non-tender and non-distended Extremity normal capillary refill General Extremity: Negative for edema Skin no rashes or lesions noted General Skin Exam: no breakdown Neuro Neuro Narrative: Right hemiparesis. Psych affect normal Appearance: appropriate Medical Records Data Medical Nutrition Assessment Dietitian: Malnutrition Criteria Met Start: 01/13/22 11:51 Freq: Status: Active Protocol: Document 01/13/22 11:51 ROSELINE (Rec: 01/13/22 11:51 [facility] [id number]) Nutrition Malnutrition Evidence of Malnutrition Exists Yes Malnutrition (unspecified) Severe pro/sergei Evidenced By Suboptimal Energy Intake ( Severe),Weight Loss (Severe), Physical Changes (Moderate) Clinical Problem Acute Disease or Injury Related Malnutrition Etiology related to COVID x ~ 1 mo ago and difficulty consuming adequate nutrition to meet est nutrition needs Signs/Symptoms as evidenced by 9.3% wt loss of UBW / 6.6% wt loss since 08/21 and having <50% po intake x >1 mo. Also has some muscle/fat loss in face and upper body. Status Active Problem Recommendation Dietitian Recommendations/Changes Will liberalize diet to Regular (easy to chew) d/t s/s of malnutrition Will continue ONS at [facility] Will provide small portions per res request Weight / BMI Weight Weight: 90.6 kg Body Mass Index (BMI) 30.3 ABG / Lab / Microbiology Data Result Diagrams: 01/20/22 05:11 01/20/22 05:11 Microbiology: Microbiology 01/21/22 Unknown Nasal Secretion SARS-CoV-2 Antigen (Rapid) - Final 01/18/22 06:40 Nasal Secretion SARS-CoV-2 Antigen (Rapid) - Final 01/12/22 15:25 Nasal Secretion SARS-CoV-2 Antigen (Rapid) - Final D/C Instructions Discharge Diet: No restrictions and - (Small portions.) Discharge Activity: Return to Normal Activity, May Shower and Use Walker Weight Bearing Status: Weight bearing as tolerated Call your doctor if you observe: Fever of 101 or Higher, Inability to urinate, Inability to have a bowel movement, Shortness of breath, Dizziness, Fainting spells, Swelling in the ankles, Chest pain and Uncontrolled pain Additional Instructions: Discharge to [facility] 01/28/2022, [facility] PT/OT/ST. Meaningful Use Info Meaningful Use Diagnoses (Choose all that apply): Hemorrhagic CVA CVA Therapy Assessed for PT,OT and/or ST?: Yes Discharge Plan Admission Admit Date/Time: 01/12/22 14:30 Primary Reason for Your Visit: Debility. Attending Provider: Domenic Ochoa Chi Primary Care Provider: Daniel Tijerina Instructions Additional Instructions / Restrictions: Discharge to [facility] 01/28/2022, [facility] Care PT/OT/ST. Discharge Orders/Prescriptions Prescriptions: New acetaminophen 500 mg Tablet 1,000 mg PO Q6H PRN PRN (Reason: Pain Score 1-10) Qty: 0 RF: 0 Continued metoprolol tartrate 50 mg tablet 25 mg PO BID RF: 0 ascorbic acid (vitamin C) [Vitamin C] 500 mg Tablet 500 mg PO BID RF: 0 cholecalciferol (vitamin D3) 25 mcg (1,000 unit) tablet 25 mcg PO DAILY RF: 0 amlodipine 5 mg tablet 5 mg PO DAILY 30 Days Qty: 30 RF: 0 sertraline 50 mg tablet 25 mg PO DAILY 30 Days Qty: 30 RF: 0 Discontinued bisacodyl 10 mg Suppository 10 mg [place] .PRN X 1 PRN (Reason: Constipation) Qty: 0 RF: 0 magnesium hydroxide 400 mg/5 mL Suspension 30 ml PO .PRN X 1 PRN (Reason: Constipation) Qty: 0 RF: 0 sennosides-docusate sodium [Stool Softener-Stimulant Laxat] 8.6-50 mg tablet 2 tab PO BID RF: 0 dronabinol 2.5 mg capsule 2.5 mg PO QHS RF: 0 nystatin [Nyamyc] 100,000 unit/gram powder 1 applic topical BID RF: 0 menthol-zinc oxide [Calmoseptine] 0.44-20.6 % ointment 1 applic topical BID@0600,2200 RF: 0 Referrals / Follow Up: Dr. Ocampo [Other] (After DC from TCU if needed Neurosurgery.) Daniel Tijerina DO [Primary Care Provider] - Disposition Disposition (needs filled in before D/C Order can be placed): Assisted Living
--- NOTE | 2022-01-25 19:05 | PCM.TXEXTCAR ---
Diet 01/13/22 11:52 Diet: Regular - General Food consistency:: Easy to Chew Liquid Consistency:: Regular/Thin Is pt able to select menu?: No Diet Comments: small portions Routine Orders/Code Status Code Status: Full Code Wound(s) RIGHT HAND/ELBOW: Wound Type: Scattered abrasions Therapies Weight Bearing: Weight bearing as tolerated Extremity Affected:: Bilateral Lower Physical Therapy: Eval and Treat Occupational Therapy: Eval and Treat Speech Therapy: Eval and Treat Problem/Diagnosis (1) Debility: Status: Acute (2) Hemorrhagic cerebrovascular accident (CVA): Status: Acute (3) Pseudobulbar affect: Status: Acute (4) Dysarthria: Status: Acute (5) Right hemiparesis: Status: Acute (6) HTN (hypertension): Status: Chronic (7) Lacunar infarction: Status: Acute Allergies/Procedures Done in Hospital Allergies No Known Allergies Allergy (Verified 12/04/21 08:38) Procedures: None Type of Care/Length of Stay Estimated LOS: More Than 30 Days Type of Care Needed: Retirement/Assisted Living Rehab Potential: Fair Prognosis: Fair Additional Orders/Day of Discharge Day of Discharge: 01/28/22 Dietary and Speech Recommendations Dietitian Recommendations/Changes: Will liberalize diet to Regular (easy to chew) d/t s/s of malnutrition Will continue ONS at [facility], but change to 3x/day per res request. Will continue to provide small portions per res request Follow Up Care Please follow up with your Primary Care Physician in: DR. KYM TIJERINA IN 1 WEEK AFTER DC Discharge Plan Admission Admit Date/Time: 01/12/22 14:30 Primary Reason for Your Visit: Debility. Attending Provider: Domenic Ochoa Chi Primary Care Provider: Kym Tijerina Instructions Additional Instructions / Restrictions: Discharge to [facility] 01/28/2022, [facility] Care PT/OT/ST. Discharge Orders/Prescriptions Prescriptions: New acetaminophen 500 mg Tablet 1,000 mg PO Q6H PRN PRN (Reason: Pain Score 1-10) Qty: 0 RF: 0 Continued metoprolol tartrate 50 mg tablet 25 mg PO BID RF: 0 ascorbic acid (vitamin C) [Vitamin C] 500 mg Tablet 500 mg PO BID RF: 0 cholecalciferol (vitamin D3) 25 mcg (1,000 unit) tablet 25 mcg PO DAILY RF: 0 amlodipine 5 mg tablet 5 mg PO DAILY 30 Days Qty: 30 RF: 0 sertraline 50 mg tablet 25 mg PO DAILY 30 Days Qty: 30 RF: 0 Discontinued bisacodyl 10 mg Suppository 10 mg [place] .PRN X 1 PRN (Reason: Constipation) Qty: 0 RF: 0 magnesium hydroxide 400 mg/5 mL Suspension 30 ml PO .PRN X 1 PRN (Reason: Constipation) Qty: 0 RF: 0 sennosides-docusate sodium [Stool Softener-Stimulant Laxat] 8.6-50 mg tablet 2 tab PO BID RF: 0 dronabinol 2.5 mg capsule 2.5 mg PO QHS RF: 0 nystatin [Nyamyc] 100,000 unit/gram powder 1 applic topical BID RF: 0 menthol-zinc oxide [Calmoseptine] 0.44-20.6 % ointment 1 applic topical BID@0600,2200 RF: 0 Referrals / Follow Up: Dr. Ocampo [Other] (After DC from TCU if needed Neurosurgery.) Kym Tijerina DO [Primary Care Provider] - Disposition Disposition (needs filled in before D/C Order can be placed): Assisted Living
[2022-01-25] MEDS: Dronabinol 2.5 MG Capsule PO (21:10)
[2022-01-26 06:00] VITALS: BP 118/73; PULSE 61
[2022-01-26] MEDS: Metoprolol Tartrate 25 MG Tablet PO ×2 (06:00→17:32)
[2022-01-26] MEDS: Enoxaparin 30 MG/0.3 ML Syringe SC (06:00)
[2022-01-26] MEDS: Sertraline 50 MG Tablet 25 MG PO (06:00)
[2022-01-26] MEDS: amLODIPine 5 MG Tablet PO (06:00)
[2022-01-26] MEDS: Menthol/Lanolin/Calamine/Znox 113 GM Tube 1 APPLIC TOPICAL ×2 (06:01→17:30)
[2022-01-26] MEDS: Nystatin Powder 15gm Bottle 1 APPLIC TOPICAL ×2 (06:01→17:31)
[2022-01-26] MEDS: Ascorbic Acid 500 MG Tablet PO ×2 (07:45→17:31)
[2022-01-26] MEDS: Cholecalciferol (VIT D3) 25 MCG TABLET (1,000 UNITS) PO (07:45)
[2022-01-26 14:07] VITALS: BP 112/60; PULSE 67; RESP 16; TEMP 36.3; O2SAT 96
[2022-01-26 17:32] VITALS: BP 112/60; PULSE 67
[2022-01-26] MEDS: Senna/Docusate Sodium 1 Tablet 2 TABLET PO (17:32)
[2022-01-26] MEDS: Dronabinol 2.5 MG Capsule PO (20:31)
[2022-01-26 20:35] VITALS: PULSE 62; RESP 16; O2SAT 95
[2022-01-27 05:11] VITALS: BP 116/72; PULSE 65
[2022-01-27] MEDS: Enoxaparin 30 MG/0.3 ML Syringe SC (05:12)
[2022-01-27 05:13] VITALS: PULSE 65
[2022-01-27] MEDS: amLODIPine 5 MG Tablet PO (05:13)
[2022-01-27] MEDS: Metoprolol Tartrate 25 MG Tablet PO ×2 (05:13→17:13)
[2022-01-27] MEDS: Sertraline 50 MG Tablet 25 MG PO (05:13)
[2022-01-27] MEDS: Senna/Docusate Sodium 1 Tablet 2 TABLET PO ×2 (05:14→17:14)
[2022-01-27] MEDS: Nystatin Powder 15gm Bottle 1 APPLIC TOPICAL ×2 (05:14→17:14)
[2022-01-27] MEDS: Menthol/Lanolin/Calamine/Znox 113 GM Tube 1 APPLIC TOPICAL ×2 (05:14→17:14)
[2022-01-27 05:44] LABS: Absolute Lymphocyte Count 2.05 X10^3/uL (0.83-4.51); Absolute Neutrophil Count 4.3 X10^3/uL (2.0-7.7); Basophil# 0.04 X10^3/uL; Basophil% 0.5 % (0-1); Eosinophil# 0.39 X10^3/uL; Eosinophils% 5.2 % (0-5); Hematocrit 38.7 % (40-54); Hemoglobin 13.8 g/dL (13.0-16.5); Lymphocyte # 2.05 X10^3/ul (0.83-4.51); Lymphocyte % 27.1 % (19-41); Mean Corp Hgb Conc 35.7 g/dL (32-36); Mean Corpuscular Hgb 34.9 pg (27.0-32.0); Monocyte# 0.77 X10^3/uL; Monocyte% 10.2 % (0-10); NRBC Flagged by Analyzer 0 % (0-5); Neutrophil # 4.29 X10^3/uL (2.7-7.7); Neutrophil % 56.7 % (47-70); Platelet Count 169 K/mm3 (150-450); RBC Distribution Width SD 43.3 fl (35.1-43.9); Red Blood Count 3.95 M/mm3 (4.6-6.2); White Blood Count 7.6 K/mm3 (4.4-11.0)
[2022-01-27 06:24] LABS: Anion Gap 2 (5-15); BUN 29 mg/dL (7-18); BUN/Creat Ratio 31.3 RATIO (10-20); Calcium,Total 9.4 mg/dL (8.5-10.1); Chloride 105 mmol/L (98-107); Creatinine, Serum 0.93 mg/dL (0.70-1.30); EST Glomerular Filtration Rate 82 mL/min (>60); Est Glom Filt Rate - Afr Amer 100 mL/min (>60); Glucose 101 mg/dL (74-106); Sodium Level 139 mmol/L (136-145)
[2022-01-27] MEDS: Cholecalciferol (VIT D3) 25 MCG TABLET (1,000 UNITS) PO (08:16)
[2022-01-27] MEDS: Ascorbic Acid 500 MG Tablet PO ×2 (08:16→17:13)
[2022-01-27 14:06] VITALS: BP 110/62; PULSE 75; RESP 18; TEMP 36.5; O2SAT 94
--- NOTE | 2022-01-27 14:23 | NURSING ---
Family refusing to have sleep study done at this time. Will reconsider at a later time.
[2022-01-27 17:13] VITALS: PULSE 75
[2022-01-27] MEDS: Dronabinol 2.5 MG Capsule PO (22:11)
[2022-01-28 05:34] VITALS: BP 130/73; PULSE 69
[2022-01-28] MEDS: Senna/Docusate Sodium 1 Tablet 2 TABLET PO (05:34)
[2022-01-28] MEDS: Nystatin Powder 15gm Bottle 1 APPLIC TOPICAL ×2 (05:34→17:02)
[2022-01-28] MEDS: Enoxaparin 30 MG/0.3 ML Syringe SC (05:34)
[2022-01-28] MEDS: amLODIPine 5 MG Tablet PO (05:34)
[2022-01-28] MEDS: Metoprolol Tartrate 25 MG Tablet PO ×2 (05:34→17:00)
[2022-01-28] MEDS: Menthol/Lanolin/Calamine/Znox 113 GM Tube 1 APPLIC TOPICAL ×2 (05:34→17:01)
[2022-01-28] MEDS: Sertraline 50 MG Tablet 25 MG PO (05:35)
[2022-01-28] MEDS: Ascorbic Acid 500 MG Tablet PO ×2 (07:35→17:00)
[2022-01-28] MEDS: Cholecalciferol (VIT D3) 25 MCG TABLET (1,000 UNITS) PO (07:35)
[2022-01-28 10:22] VITALS: O2SAT 92
--- NOTE | 2022-01-28 11:41 | NURSING ---
Nurse to Nurse report called to Te[facility] [place] to notify of hand picker at 1100
[2022-01-28 11:58] VITALS: BP 115/61; PULSE 64; RESP 16; TEMP 37.1; O2SAT 92
--- NOTE | 2022-01-28 13:03 | MDS.RN ---
Pain interview for EMMETT 01/28/22 completed.
[2022-01-28 16:11] VITALS: BP 141/73; PULSE 67; RESP 18; TEMP 36.7; O2SAT 92
[2022-01-28 17:00] VITALS: PULSE 67
== END 2022-01-28 17:50 | disposition home or self-care (01) | DRG 57 ==
PROVIDERS: Admitting Provider Family Medicine Geriatric Medicine; PCP Family Medicine; Visit Provider Family Medicine Geriatric Medicine
DX: I69.351 Hemiplegia and hemiparesis following cerebral infarction affecting right dominant side (principal); B35.4 Tinea corporis; I10 Essential (primary) hypertension; E55.9 Vitamin D deficiency, unspecified; I69.322 Dysarthria following cerebral infarction; I69.392 Facial weakness following cerebral infarction; F32.A Depression, unspecified; E66.9 Obesity, unspecified; Z68.30 Body mass index [BMI] 30.0-30.9, adult; Z86.16 Personal history of COVID-19; Z79.899 Other long term (current) drug therapy
CPT/HCPCS: 36415; 80048; 85025; 87426; 87811; 92507; 92523; 92526; 92610; 97110; 97116; 97162; 97166; 97530; 97535; 97542; 97802

== ENCOUNTER 2024-03-21 06:34 | Day surgery (SDC) | payer MEDICARE, SELFPAY ==
[2024-03-16 10:51] LABS: Hematocrit 43.1 % (40-54); Hemoglobin 14.5 g/dL (13.0-16.5); Mean Corp Hgb Conc 33.6 g/dL (32-36); Mean Corpuscular Hgb 33.5 pg (27.0-32.0); Mean Corpuscular Volume 99.5 fL (80-94); Mean Platelet Vol. 8.7 fl (6.2-12.0); Platelet Count 189 K/mm3 (150-450); RBC Distribution Width CV 11.9 % (11.6-14.6); Red Blood Count 4.33 M/mm3 (4.6-6.2); White Blood Count 7.2 K/mm3 (4.4-11.0)
[2024-03-16 11:30] LABS: Anion Gap 3 (5-15); BUN 25 mg/dL (7-18); Calcium,Total 9.9 mg/dL (8.5-10.1); Chloride 103 mmol/L (98-107); Creatinine, Serum 1.39 mg/dL (0.70-1.30); EST Glomerular Filtration Rate 51 mL/min (>60); Est Glom Filt Rate - Afr Amer 62 mL/min (>60); Glucose 161 mg/dL (74-106); Potassium 4.3 mmol/L (3.5-5.1); Sodium Level 137 mmol/L (136-145)
[2024-03-21 07:03] VITALS: BMI 34.1
--- NOTE | 2024-03-21 08:12 | PCM.OPRPT ---
Report of Operation Date of Procedure: 03/21/24 Pre-Operative Diagnosis: dvt Post-Operative Diagnosis: dvt Surgery/Procedure Performed:: IVC filter Surgeon: Daniel Bee Type of Anesthesia: None Description of Procedure: pt brought cath ;ab. no sedation, prepped and draped steile fashion. did u/s guided access right groin after using lidocaine. then did cavogram and replaced wire and advanced sheath. deployed filter with hookk anterior and good postion. removed sheathh and held pressure. no hematoma. brought recovery stable condition. Complications noone
== END 2024-03-21 11:10 | disposition home or self-care (01) ==
PROVIDERS: PCP Family Medicine; Referring Provider Surgery Vascular Surgery; Visit Provider Surgery Vascular Surgery
DX: I82.492 Acute embolism and thrombosis of other specified deep vein of left lower extremity (principal); I12.9 Hypertensive chronic kidney disease with stage 1 through stage 4 chronic kidney disease, or unspecified chronic kidney disease; N18.9 Chronic kidney disease, unspecified; Z86.73 Personal history of transient ischemic attack (TIA), and cerebral infarction without residual deficits
CPT/HCPCS: 36415; 37191; 76937; 80048; 85027; C1894; J7040; Q9967; C1769; C1880